=== PATIENT | female | born 1995 | race Caucasian/White ===

== ENCOUNTER 2019-09-02 13:11 | Outpatient (CLI) | payer OTHER, SELFPAY ==
--- NOTE | ~2019-09-02 | US_ITS ---
EXAMINATION: US OB <= 14 weeks fetus DATE: 09/02/2019 14:15 INDICATION: Cramping during first trimester with prior miscarriage TECHNIQUE: Real-time pelvic ultrasound utilizing both a transvaginal and transabdominal probe was pe rformed. The interpreting radiologist was not present for the study. COMPARISON: None. FINDINGS: The uterus measures 9.7 x 6.6 x 5.5 cm. There is an intrauterine gestational sac with mean sac diame ter of 1.7 cm which correlates with an estimated gestational age of 6 weeks and 3 days. A 7 mm yolk s ac is seen. Indeterminate possible pole along the yolk sac with some fifth crown rump length me asuring 5 mm, which correlates with an estimated gestational age of 6 weeks and 2 days. No hear t motion identified on cine grayscale imaging. The right ovary measures 2.9 x 2.3 x 1.7 cm. The left ovary measures 3.6 x 2.3 x 2.8 cm. There is no free fluid in the pelvis. IMPRESSION: 1. 1.7 cm intrauterine gestational sac with mildly enlarged 7 mm yolk sac and indeterminate possible pole with presumptive crown-rump length of 5 mm with no evident heart motion. Findings re main equivocal for early versus failed and would recommend follow-up with serial beta-hCG l evels and/or repeat ultrasound as clinically indicated. 2. Gestational age by ultrasound of 6 weeks 3 day(s) +/- 3 day(s) with ultrasound estimated date of delivery (TITUS) of 04/24/2020. Reviewed, dictated and finalized at location A. IMPRESSION: 1. 1.7 cm intrauterine gestational sac with mildly enlarged 7 mm yolk sac and i ndeterminate possible pole with presumptive crown-rump length of 5 mm wit h no evident heart motion. Findings remain equivocal for early versus nate led and would recommend follow-up with serial beta-hCG levels and/or repeat ultrasound as clinically indicated. 2. Gestational age by ultrasound of 6 weeks 3 day(s) +/- 3 day(s) with ultraso und estimated date of delivery (TITUS) of 04/24/2020.
== END 2019-09-02 13:12 | disposition home or self-care (01) ==
LOC: ANHIMG 13:13
PROVIDERS: Visit Provider Obstetrics & Gynecology Gynecology
DX: O26.21 Pregnancy care for patient with recurrent pregnancy loss, first trimester (principal); Z3A.01 Less than 8 weeks gestation of pregnancy
CPT/HCPCS: 76801

== ENCOUNTER 2019-09-20 10:56 | Outpatient (CLI) | payer OTHER, SELFPAY ==
--- NOTE | ~2019-09-20 | US_ITS ---
EXAMINATION: US OB <=14 wk fetus w TV DATE: 09/20/2019 12:07 INDICATION: Spotting. History of miscarriage. TECHNIQUE: Real-time transabdominal and transvaginal pelvic ultrasound was performed. COMPARISON: Ultrasound 09/02/2019 FINDINGS: TRANSABDOMINAL ULTRASOUND: The uterus measures 8.3 x 5.9 x 7.4 cm. TRANSVAGINAL ULTRASOUND: There is an intrauterine gestational sac with mean diameter of 1.2 cm which correlates with an estimated gestational age of 5 weeks and 6 days. A yolk sac is identified. No feta l pole is identified. The right ovary measures 2.5 x 1.5 x 1.3 cm. The left ovary measures 2.6 x 1.5 x 2.5 cm. There is no free fluid in the pelvis. IMPRESSION: 1. Single intrauterine gestation. The interval decrease in size of the gestational sac and lack of a visible pole are suspicious for failed . Correlate with serial beta-hCGs. Reviewed, dictated and finalized at location A. IMPRESSION: 1. Single intrauterine gestation. The interval decrease in size of the gestati onal sac and lack of a visible pole are suspicious for failed . Correlate with serial beta-hCGs.
== END 2019-09-20 10:57 | disposition home or self-care (01) ==
LOC: ANHIMG 10:58
PROVIDERS: Visit Provider Obstetrics & Gynecology Gynecology
DX: O26.851 Spotting complicating pregnancy, first trimester (principal); O26.21 Pregnancy care for patient with recurrent pregnancy loss, first trimester; Z3A.00 Weeks of gestation of pregnancy not specified
CPT/HCPCS: 76801; 76817

== ENCOUNTER 2019-09-21 16:16 | Outpatient (RCR) | payer OTHER, SELFPAY | END 2019-12-20 23:59 | disposition home or self-care (01) | LOC: ANHLAB 16:16 | PROVIDERS: Visit Provider Obstetrics & Gynecology Gynecology | DX: O02.1 Missed abortion (principal); Z3A.00 Weeks of gestation of pregnancy not specified | CPT/HCPCS: 36415; 84702 ==

== ENCOUNTER 2019-09-22 13:43 | Emergency (ER) | payer OTHER, SELFPAY ==
--- NOTE | ~2019-09-22 | US_ITS ---
US OB <=14 wk fetus w TV 09/22/2019 15:41 Indication: Vaginal bleeding. History of miscarriage. Procedure: High-resolution Limited early obstetrical ultrasound utilizing transabdominal and transvag inal technique. Comparison: 09/20/2019 Findings: There is a gestational sac in the lower uterine segment which appears to have migrated sinc e prior examination. No intrauterine pole or heart motions detected. No yolk sac identifi ed. Ovaries are unremarkable. Right ovary measures 2.6 x 1.5 x 1.7 cm. Left ovary measures 1.7 x 1.5 x 1.4 cm. Impression: 1: Interval migration of complex partially cystic soft tissue into the lower uterine segment since pr ior examination, likely residual gestational sac. No pole or yolk sac identified. This soft tis braulio likely represents retained products of conception. Recommend follow-up with serial quantitative b eta hCG levels and ultrasound as clinically indicated. Reviewed, dictated and finalized at location A. Impression: 1: Interval migration of complex partially cystic soft tissue into the lower ut erine segment since prior examination, likely residual gestational sac. No feta l pole or yolk sac identified. This soft tissue likely represents retained prod ucts of conception. Recommend follow-up with serial quantitative beta hCG level s and ultrasound as clinically indicated.
[2019-09-22 13:53] VITALS: BP 133/70; PULSE 86; RESP 16; TEMP 36.6; O2SAT 100
--- NOTE | 2019-09-22 14:13 | ED.ABDPAIN ---
HPI - Abdominal Pain General Chief Complaint: Vaginal Bleeding Stated Complaint: miscarriage Time Seen by Provider: 09/22/19 13:49 Source: RN notes reviewed History of Present Illness HPI narrative: Patient presents emergency department from home for vaginal bleeding. Patient states she is currently approximately 9 weeks is followed by Dr. Cheng. States that she has been having vaginal bleeding for the past several days that worsened today going through 2 pads in the last 2 hours. Patient states is associated with lower abdominal cramping. States she last had an ultrasound 2 days ago. Patient states she is had no Tylenol or ibuprofen today. Denies any fevers or chills shortness of breath or any other symptoms Related Data Home Medications Medication Instructions Recorded Confirmed PNV cmb#95-ferrous fumarate-FA 1 tablet PO DAILY 01/05/19 01/05/19 [] Allergies Allergy/AdvReac Type Severity Reaction Status Date / Time No Known Allergies Allergy Verified 09/22/19 14:01 Review of Systems Review of Systems: Narrative: Gen.: Denies fevers or chills ENT: Denies congestion Respiratory: Denies shortness of breath or cough CV: Denies chest pain or palpitations GI: Denies abdominal pain nausea, emesis or diarrhea see HPI Musculoskeletal: Denies back pain or muscle pain Neuro: Denies numbness, tingling, weakness or focal weakness Skin: Denies rash Except as documented, all other systems reviewed and negative PMFSH Past Medical History Medical History IUFD at 20 weeks or more of gestation Social History Social History Smoking status: Never smoker Substance use: former Last use: Prior to knowledge of Gender identity (if verbalized by the patient): Female Spiritual care concerns: No Exam Narrative: Exam Narrative: APPEARANCE: No acute distress, nontoxic, resting in bed HEENT: Normocephalic, atraumatic, OMM RESPIRATORY: No respiratory distress, clear to auscultation bilaterally with no rhonchi wheezing or rales CARDIOVASCULAR: RRR s murmur ABDOMINAL: Soft, nondistended, tender palpation right lower quadrant left lower quadrant, no tenderness right upper quadrant left upper quadrant, no rebound or guarding : Normal external exam, small amount of dark red blood with clots in vaginal canal, the cervix is 2 cm MUSCULOSKELETAl: Moves all extremities. No clubbing, cyanosis or edema. NEURO: Awake and alert. Following commands, speech normal, no focal deficits SKIN:: Warm, dry. Normal Color PSYCHIATRIC: Normal affect/mood Course Course Emergency Course: Discussed with Dr. Cheng presentation and work-up discussed ultrasound results. At this time feels patient may be discharged home request patient received Methergine 0.2 mg IM x1 now followed by discharge prescription for 0.2 mg every 6 hours x4 Discussed with patient results of workup and diagnosis. Discussed need for follow-up with primary care, proper use of medication, and reasons to return to the emergency department. Patient understands and agrees to current treatment plan. Discussed with her my conversation with Dr. Cheng in agreement at this time Vital Signs Vital signs: Vital Signs Temperature 97.9 F 09/22/19 13:53 Pulse Rate 86 09/22/19 13:53 Respiratory Rate 16 09/22/19 13:53 Blood Pressure 133/70 09/22/19 13:53 Pulse Oximetry 100 09/22/19 13:53 Temperature 97.9 F 09/22/19 13:53 Pulse Rate 86 09/22/19 13:53 Respiratory Rate 16 09/22/19 13:53 Blood Pressure 133/70 09/22/19 13:53 Pulse Oximetry 100 09/22/19 13:53 MDM - Abdominal Pain Lab Data Result diagrams: 09/22/19 14:17 09/22/19 14:17 Labs: Lab Results 09/22/19 09/22/19 09/22/19 Range/Units 14:17 14:17 14:17 WBC 6.6 (4.5-10.0) K/mm3 RBC 4.54 (4.2-5.4) M/mm3 Hgb
[2019-09-22 14:28] LABS: Basophils Percent Auto 0.3 % (0.2-1.2); Eosinophils Percent Auto 0.6 % (0-4.4); Hematocrit 38.8 % (37.0-47.0); Hemoglobin 13.9 g/dL (12.0-15.0); Immature Granulocyte Absolute 0.01 K/mm3 (0.00-0.031); Immature Granulocyte Percent A 0.2 % (0-0.5); Lymphocytes Absolute Auto 1.31 K/mm3 (0.9-3.2); Lymphocytes Percent Auto 19.7 % (18.3-44.2); Mean Corpuscular HGB Conc 35.8 g/dl (32-36); Mean Corpuscular Hemoglobin 30.6 pg (26-34); Mean Corpuscular Volume 85.5 fl (80-100); Mean Platelet Volume 10.4 fl (7.4-10.4); Monocytes Absolute Auto 0.4 K/mm3 (0.1-0.6); Monocytes Percent Auto 6.5 % (2.6-8.5); Neutrophils Absolute Auto 4.8 K/mm3 (1.3-6.7); Neutrophils Percent Auto 72.7 % (45.5-73.1); Platelet Count Result 179 k/mm3 (150-375); Red Blood Count 4.54 M/mm3 (4.2-5.4); Red Cell Distribution Width 11.6 % (11.5-14.5); White Blood Count 6.6 K/mm3 (4.5-10.0)
[2019-09-22] MEDS: SODIUM CHLORIDE 0.9% IV 1,000 ML 999 ML IV CONT (14:28)
[2019-09-22 14:50] LABS: Anion Gap 14.5 mmol/L (7-16); Blood Urea Nitrogen 10 mg/dL (7-17); Calcium 9.5 mg/dL (8.4-10.2); Carbon Dioxide 25 mmol/L (22-30); Chloride 102 mmol/L (98-107); Estimated CRCL calculation 105 ml/min; Estimated Glomerular Filt Rate > 60; Glucose 139 mg/dL (65-105); Potassium 3.5 mmol/L (3.4-5.0); Sodium 138 mmol/L (137-145)
[2019-09-22] MEDS: METHYLERGONOVINE MALEATE 0.2 MG/ML VIAL IM (17:09)
[2019-09-22 17:21] VITALS: BP 129/64; PULSE 72; RESP 16; O2SAT 100
== END 2019-09-22 17:35 | disposition home or self-care (01) ==
PROVIDERS: Emergency Provider Emergency Medicine
DX: O03.4 Incomplete spontaneous abortion without complication (principal)
CPT/HCPCS: 36415; 76801; 76817; 80048; 84702; 85025; 86850; 86900; 86901; 96361; 96365; 96372; 99284; J0131; J2210; J7030

== ENCOUNTER 2019-10-14 16:21 | Outpatient (RCR) | payer OTHER, SELFPAY ==
[2019-09-29 17:09] LABS: Beta HCG Quantitative 63.88 mIU/ML
[2019-10-06 15:21] LABS: Beta HCG Quantitative 10.76 mIU/ML
[2019-10-14 17:14] LABS: Beta HCG Quantitative 2.55 mIU/ML
== END 2019-12-28 23:59 | disposition home or self-care (01) ==
LOC: ANHLAB 16:21
PROVIDERS: Visit Provider Obstetrics & Gynecology Gynecology
DX: O02.1 Missed abortion (principal); Z3A.00 Weeks of gestation of pregnancy not specified
CPT/HCPCS: 36415; 84702

== ENCOUNTER 2020-02-01 14:00 | Outpatient (CLI) | payer OTHER, SELFPAY ==
--- NOTE | ~2020-02-01 | US_ITS ---
EXAMINATION: US OB <= 14 weeks fetus DATE: 02/01/2020 14:35 INDICATION: Uncertain dates. Spotting. TECHNIQUE: Real-time transabdominal pelvic ultrasound was performed. COMPARISON: None. FINDINGS: The uterus measures 11.6 x 9.6 x 8.3 cm. There is an intrauterine gestational sac. A yolk sac is iden tified. The crown rump length measures 3.3 cm, which correlates with an estimated gestational age of 10 weeks and 1 day(s) (+/-) 6 day(s). heart motion is identified measuring 157 beats per minute (bpm) by M-mode Doppler. The right ovary measures 3.6 x 2.2 x 2.2 cm. The left ovary is not v isualized. There is no free fluid in the pelvis. IMPRESSION: 1. Single living intrauterine gestation with estimated date of delivery of 08/28/2020. Reviewed, dictated and finalized at location B. ETOLOGIST IMPRESSION: 1. Single living intrauterine gestation with estimated date of delivery of 08/28.
== END 2020-02-01 14:01 | disposition home or self-care (01) ==
LOC: ANHIMG 14:03
PROVIDERS: Visit Provider Obstetrics & Gynecology Gynecology
DX: O26.21 Pregnancy care for patient with recurrent pregnancy loss, first trimester (principal); Z3A.00 Weeks of gestation of pregnancy not specified
CPT/HCPCS: 76801

== ENCOUNTER 2020-03-29 09:08 | Outpatient (CLI) | payer OTHER, SELFPAY ==
--- NOTE | ~2020-03-29 | US_ITS ---
US OB /maternal detail DATE: 03/29/2020 10:04 INDICATION: anatomy screen TECHNIQUE: Real-time imaging and Doppler analysis COMPARISON: 02/01/2020 obstetrical ultrasound FINDINGS: Live single intrauterine gestation, fetus in vertex presentation, longitudinal lie. h eart rate of 144 bpm. Posterior placenta. Subjectively normal amount of amniotic fluid. No cerebral ventriculomegaly is evident. The cerebellum appears normal. Normal nuchal fol d and cisterna magna. The spine appears unremarkable. The diaphragm is intact. Fluid is d emonstrated in the stomach and urinary bladder. No hydronephrosis. Three-vessel umbilical cord with normal insertion at abdominal wall. female external genitalia. Biparietal diameter 3.95 cm, consistent with 18 weeks 0 days estimated gestational age Head circumference 14.78 cm; 17 weeks 6 days Abdominal circumference 12.65 cm; 18 weeks 2 days Femur length 2.82 cm; 18 weeks 4 days Composite age by Hadlock formula is 18 weeks 1 day +/- 1 week 2 days; TITUS is 08/29/2020, compared to 08/28/2020 by LMP. Estimated weight by Hadlock formula is 237 +/- 36 g. Head circumference/abdominal circumference 1.17, within normal range of 1.08-1.27 IMPRESSION: Composite age by Hadlock formula is 18 weeks 1 day +/- 1 week 2 days; TITUS is 08/29/2020, co mpared to 08/28/2020 by LMP. Normal anatomy screen Reviewed, dictated and finalized at Location A. Reviewed, dictated and finalized at location A. ENT ART CURATOR IMPRESSION: Composite age by Hadlock formula is 18 weeks 1 day +/- 1 week 2 day s; TITUS is 08/29/2020, compared to 08/28/2020 by LMP. Normal anatomy screen
== END 2020-03-29 09:09 | disposition home or self-care (01) ==
PROVIDERS: Family Provider Pediatrics; Visit Provider Obstetrics & Gynecology Gynecology
DX: Z36.9 Encounter for antenatal screening, unspecified (principal); Z3A.18 18 weeks gestation of pregnancy
CPT/HCPCS: 76805

== ENCOUNTER 2020-07-13 14:44 | Outpatient (CLI) | payer OTHER, SELFPAY ==
--- NOTE | ~2020-07-13 | US_ITS ---
EXAMINATION: US OB follow up DATE: 07/13/2020 15:27 INDICATION: Size less than dates during third trimester TECHNIQUE: Real-time ultrasound of the pelvis was performed. The interpreting radiologist was not pre sent for the study. COMPARISON: 03/29/2020 FINDINGS: There is a single living fetus in vertex presentation. The placenta is posterior. car diac activity and movement are noted. heart rate is 147 beats per minute (bpm). The amnio tic fluid index is 11.7 cm which is normal. The following biometric data were obtained: Biparietal diameter (BPD): 8.3 cm; head circumference (HC): 31.2 cm; abdominal circumference (AC): 29 .2 cm; femur length (FL): 6.5 cm. These measurements are concordant. Estimated weight is 2224 g +/- 333 g, which correlates with the 46th percentile when 08/28/2020 i s used as estimated date of delivery. As single measurements, these parameters are each equal to the following estimated gestational ages w ith ranges of +/- 2 standard deviations: BPD: 33 weeks 3 days +/- 3 weeks 1 days. HC: 35 weeks 0 days +/- 3 weeks 0 days. AC: 33 weeks 2 days +/- 3 weeks 0 days. FL: 33 weeks 5 days +/- 3 weeks 0 days. estimated gestational age based solely on measurements from this exam is 33 weeks 6 days +/- 2 weeks 3 days. IMPRESSION: 1. Single living fetus in vertex presentation. 2. Estimated weight is 2224 g +/- 333 g, which correlates with the 46th percentile when is used as estimated date of delivery. 3. Normal amniotic fluid index. Reviewed, dictated and finalized at location A. IMPRESSION: 1. Single living fetus in vertex presentation. 2. Estimated weight is 2224 g +/- 333 g, which correlates with the 46th p ercentile when 08/28/2020 is used as estimated date of delivery. 3. Normal amniotic fluid index.
== END 2020-07-13 14:45 | disposition home or self-care (01) ==
PROVIDERS: Visit Provider Obstetrics & Gynecology Gynecology
DX: O36.5930 Maternal care for other known or suspected poor fetal growth, third trimester, not applicable or unspecified (principal); Z3A.33 33 weeks gestation of pregnancy
CPT/HCPCS: 76816

== ENCOUNTER 2020-08-07 19:35 | Observation (INO) | payer OTHER, SELFPAY ==
[2020-08-07] VITALS (30 sets, daily range): PULSE 72–104; TEMP 36.7; O2SAT 87–100; BMI 24.6
--- NOTE | ~2020-08-07 | XR_ITS ---
XR chest 2V DATE: 08/07/2020 21:47 INDICATION: Shortness of breath. 36 week patient. TECHNIQUE: AP and lateral views with abdominal and pelvic shielding COMPARISON: None FINDINGS: Normal heart size. No hilar or mediastinal enlargement. No pulmonary infiltrate or consolid ation, pleural effusion or pulmonary vascular congestion or pneumothorax. Included skeletal structure s are normal in appearance. IMPRESSION: No active cardiopulmonary disease Reviewed, dictated and finalized at location A.
--- NOTE | 2020-08-07 20:56 | OBADM ---
This patient, Danita Page, admitted to the OB room Labor/Delivery/Recovery 105 for observation. Patient/family oriented to hospital policies and general routines including ID bracelet, bed and alarms, visiting hours, pain management, procedures, bathroom and other care routines, personal items, smoking policy, room service/diet, and visiting hours. Patient/Family are encouraged to report perceived risks to care and to ask questions if they do not understand what they are told or what they should do.
--- NOTE | 2020-08-07 21:12 | ECG_ITS ---
Measurements Intervals [place] Rate: 105 P: 58 WI: 117 QRS: 69 QRSD: 83 T: -1 QT: 340 QTc: 451 Interpretive Statements SINUS TACHYCARDIA WITH SHORT WI INTERVAL NONSPECIFIC ST & T-WAVE ABNORMALITY- ANT/INF LEADS BASELINE ARTIFACT- I, III, AVL, AVF ABNORMAL ECG Electronically Signed On 08-08-2020 7:50:49 CDT by Osvaldo Dunn D.O.
[2020-08-07 21:14] LABS: Add Urine Microscopic? YES; Amorphous Sediment Urine Few; Appearance Urine Cloudy (Clear); Bacteria Urine 1+ /hpf; Bilirubin Urine Negative (Negative); Blood Urine Negative (Negative); Color Urine Yellow (Yellow); Glucose Urine UA Negative (Negative); Ketones Urine 2+ mg/dL (Negative); Leukocyte Esterase Ur 2+ LEU/UL (Negative); Mucus Urine Rare /lpf; Nitrate Urine Negative (Negative); Protein Urine Negative (Negative); RBC Urine 0-2 /hpf (0-2); Specific Grav Ur 1.012 (1.001-1.035); Squamous Epithelial Cell Urine Few /hpf (Few); Urobilinogen Urine Negative mg/dL (<2.0)
[2020-08-07] MEDS: hydrOXYzine pamoate 25 MG CAPSULE PO (23:14)
--- NOTE | 2020-08-10 09:01 | P.PNOB_ITS ---
OB - Triage/Final Diagnosis Visit Information Reason for evaluation: threatened labor and other (SOB) Comments/Additional reasons for admission: I have assessed the risk for this patient, Danita Page, and determined that she would benefit from observation care. Evaluation Laboratory results: Laboratory Tests 08/07/20 21:01 Urine Color Yellow Urine Appearance Cloudy H Urine pH 7.0 Ur Specific [place] 1.012 Urine Protein Negative Urine Glucose (UA) Negative Urine Ketones 2+ H Ur Blood (Man) Negative Urine Nitrate Negative Urine Bilirubin Negative Urine Urobilinogen Negative Leukocyte Esterase Rfl 2+ H Urine RBC 0-2 Urine WBC 4-6 H Ur Squamous Epith Cells Few Amorphous Sediment Few H Urine Bacteria 1+ H Urine Mucus Rare
== END 2020-08-08 00:10 | disposition home or self-care (01) ==
PROVIDERS: Admitting Provider Obstetrics & Gynecology Gynecology; Visit Provider Obstetrics & Gynecology Gynecology
DX: O47.1 False labor at or after 37 completed weeks of gestation (principal); O26.893 Other specified pregnancy related conditions, third trimester; R06.02 Shortness of breath; Z3A.37 37 weeks gestation of pregnancy
CPT/HCPCS: 71046; 81001; 93005; A9270; G0378; G0379

== ENCOUNTER 2020-08-11 19:34 | Observation (INO) | payer OTHER, SELFPAY ==
[2020-08-11 20:16] LABS: Add Urine Microscopic? YES; Appearance Urine Cloudy (Clear); Bacteria Urine 1+ /hpf; Bilirubin Urine Negative (Negative); Blood Urine Negative (Negative); Color Urine Yellow (Yellow); Glucose Urine UA Negative (Negative); Ketones Urine 1+ mg/dL (Negative); Leukocyte Esterase Ur 1+ LEU/UL (Negative); Mucus Urine Few /lpf; Nitrate Urine Negative (Negative); Protein Urine 1+ mg/dL (Negative); RBC Urine 0-2 /hpf (0-2); Squamous Epithelial Cell Urine Many /hpf (Few)
[2020-08-11 21:18] VITALS: BMI 25.3
--- NOTE | 2020-08-11 21:18 | LDADM ---
This patient, Danita Page, was admitted to Labor/Delivery/Recovery 106 on 08/11/20 at 19:34. Plans for labor, pain management and were discussed with patient. Patient/family oriented to hospital policies and general routines including ID bracelet, bed and alarms, visiting hours, pain management, procedures, bathroom and other care routines, personal items, smoking policy, room service/diet and guest tray routines, security routines, and visiting hours. Patient/Family are encouraged to report perceived risks to care and to ask questions if they do not understand what they are told or what they should do. See OBIX for further documentation.
--- NOTE | 2020-08-16 07:43 | P.PNOB_ITS ---
OB - Triage/Final Diagnosis Visit Information Reason for evaluation: threatened labor Comments/Additional reasons for admission: I have assessed the risk for this patient, Danita Page, and determined that she would benefit from observation care. Evaluation Laboratory results: Laboratory Tests 08/11/20 20:05 Urine Color Yellow Urine Appearance Cloudy H Urine pH 6.0 Ur Specific [place] 1.020 Urine Protein 1+ H Urine Glucose (UA) Negative Urine Ketones 1+ H Ur Blood (Man) Negative Urine Nitrate Negative Urine Bilirubin Negative Urine Urobilinogen 2.0 H Leukocyte Esterase Rfl 1+ H Urine RBC 0-2 Urine WBC 7-9 H Ur Squamous Epith Cells Many H Urine Bacteria 1+ H Hyaline Casts 1-2 Urine Mucus Few H
== END 2020-08-11 21:28 | disposition home or self-care (01) ==
PROVIDERS: Admitting Provider Obstetrics & Gynecology Gynecology; Visit Provider Obstetrics & Gynecology Gynecology
DX: O47.9 False labor, unspecified (principal); Z3A.00 Weeks of gestation of pregnancy not specified
CPT/HCPCS: 81001; 84112; 87086; G0378; G0379

== ENCOUNTER 2020-08-21 05:04 | Inpatient (IN) | payer OTHER, SELFPAY ==
[2020-08-21] VITALS (78 sets, daily range): BP systolic 80–123; BP diastolic 38–90; PULSE 64–125; RESP 18; TEMP 36.2–37.1; O2SAT 91–100; BMI 26.7
--- NOTE | 2020-08-21 05:33 | LDADM ---
This patient, Danita Page, was admitted to Labor/Delivery/Recovery 104 on 08/21/20 at 05:04. Plans for labor, pain management and were discussed with patient. Patient/family oriented to hospital policies and general routines including ID bracelet, bed and alarms, visiting hours, pain management, procedures, bathroom and other care routines, personal items, smoking policy, room service/diet and guest tray routines, security routines, and visiting hours. Patient/Family are encouraged to report perceived risks to care and to ask questions if they do not understand what they are told or what they should do. See OBIX for further documentation.
[2020-08-21] MEDS: OXYTOCIN 30 UNITS/NS 500 ML 30 UNITS/500 ML BAG IV CONT (05:36)
[2020-08-21] MEDS: LACTATED RINGERS 1,000 ML 125 ML IV CONT ×2 (05:36→11:30)
[2020-08-21 05:52] LABS: Basophils Percent Auto 0.3 % (0.2-1.2); Eosinophils Absolute Auto 0.1 K/mm3 (0-0.3); Eosinophils Percent Auto 0.8 % (0-4.4); Hematocrit 30.4 % (37.0-47.0); Hemoglobin 9.9 g/dL (12.0-15.0); Immature Granulocyte Absolute 0.04 K/mm3 (0.00-0.031); Immature Granulocyte Percent A 0.5 % (0-0.5); Lymphocytes Percent Auto 30.9 % (18.3-44.2); Mean Corpuscular HGB Conc 32.6 g/dl (32-36); Mean Corpuscular Hemoglobin 27.6 pg (26-34); Mean Corpuscular Volume 84.7 fl (80-100); Mean Platelet Volume 10.3 fl (7.4-10.4); Monocytes Absolute Auto 0.7 K/mm3 (0.1-0.6); Monocytes Percent Auto 8.5 % (2.6-8.5); Neutrophils Absolute Auto 4.6 K/mm3 (1.3-6.7); Platelet Count Result 241 k/mm3 (150-375); Red Blood Count 3.59 M/mm3 (4.2-5.4); White Blood Count 7.8 K/mm3 (4.5-10.0)
--- NOTE | 2020-08-21 06:31 | P.PNAN_ITS ---
Anes - Eval Pre Procedure Procedure: Labor epidural Date/Time: 08/21/20 06:31 Surgeon: Prosper Preop Diagnosis: pain during labor Pre Op Diagnosis: IOL Patient Data Age: 24 Gender: F Height: 1.65 m Weight: 73 kg Last Vital Signs Temp 37.1 C 08/21/20 05:40 Pulse 101 H 08/21/20 06:30 BP 116/66 08/21/20 06:30 Allergies Allergy/AdvReac Type Severity Reaction Status Date / Time No Known Allergies Allergy Verified 07/30/20 15:26 Home Medications Medication Instructions Recorded Confirmed Type PNV cmb#95-ferrous fumarate-FA 1 tablet PO DAILY 07/30/20 08/07/20 History [] ergocalciferol (vitamin D2) 1,250 mcg PO WEEKLY 07/30/20 08/07/20 History [Vitamin D2] valacyclovir [Valtrex] 500 mg PO DAILY 07/30/20 08/07/20 History Laboratory Tests 08/21/20 08/21/20 05:37 05:37 WBC 7.8 K/mm3 K/mm3 (4.5-10.0) RBC 3.59 M/mm3 L M/mm3 (4.2-5.4) Hgb 9.9 g/dL L g/dL (12.0-15.0) Hct 30.4 % L % (37.0-47.0) MCV 84.7 fl fl (80-100) MCH 27.6 pg pg (26-34) MCHC 32.6 g/dl g/dl (32-36) RDW 14.0 % % (11.5-14.5) Plt Count 241 k/mm3 k/mm3 (150-375) MPV 10.3 fl fl (7.4-10.4) Immature Gran % (Auto) 0.5 % % (0-0.5) Neut % (Auto) 59.0 % % (45.5-73.1) Lymph % (Auto) 30.9 % % (18.3-44.2) [place] % (Auto) 8.5 % % (2.6-8.5) Eos % (Auto) 0.8 % % (0-4.4) Baso % (Auto) 0.3 % % (0.2-1.2) Lymph # (Auto) 2.40 K/mm3 K/mm3 (0.9-3.2) [place] # (Auto) 0.7 K/mm3 H K/mm3 (0.1-0.6) Eos # (Auto) 0.1 K/mm3 K/mm3 (0-0.3) Baso # (Auto) 0.0 K/mm3 K/mm3 (0.0-0.1) Abs Immat Gran (auto) 0.04 K/mm3 H K/mm3 (0.00-0.031) Absolute Neuts (auto) 4.6 K/mm3 K/mm3 (1.3-6.7) Absolute Nucleated RBC 0.0 K/mm3 K/mm3 (0.0-0.012) Nucleated RBC % 0.0 % % (0.0-0.2) RPR Pending Patient hx anesthesia problems: none Family hx anesthesia problems: none [facility] Family History Family History (Updated 07/30/20 @ 15:28 by Rachel Arriaza RN) Other No pertinent family history Social History Social History Smoking status: Never smoker Second hand tobacco smoke exposure: Yes Substance use: former Gender identity (if verbalized by the patient): Female Spiritual care concerns: No Exam Day of Procedure 08/21/20 06:31
--- NOTE | 2020-08-21 07:51 | WPDOBADMIT ---
Obstetrics - Admit Note Admission Note: record reviewed. No pertinent additions to the history and/or any subsequent changes in the physical findings that are not consistent with the expected course of the were found. Additions to the history and/or subsequent changes in the physical findings follow. Here for MIL. Cervix 1-2/50/+1 AROM attempted. FHTs reactive
[2020-08-21 08:26] LABS: Rapid Plasma Reagin Non-Reactive (NonReactive)
[2020-08-21] MEDS: fentaNYL CITRATE INJ (*CRX) 100 MCG/2 ML VIAL 50 MCG IV PUSH ×2 (10:30→11:31)
--- NOTE | 2020-08-21 15:24 | PM.OBPRVD ---
OB - Delivery Note Procedure Delivery date: 08/21/20 Procedure: events: Labor Induction Intrapartal events: None Induction method: AROM and per pitocin protocol Delivery monitor: external FHT and external uterine Route of delivery: Laceration Description: None Specimen: No Quantitative Blood Loss (ml): 97 Anesthesia type: Epidural Disposition: floor Baby Date of : 08/21/20 Weeks of gestation at delivery: 39 gender: Female presentation: vertex position: Left Occiput Anterior Placenta delivery description: Spontaneous cord vessel description: 3 Vessels score one minute: 9 score five minutes: 9
--- NOTE | 2020-08-21 15:25 | PM.OBDSVD ---
DS: Admitting Diagnosis Admitting Diagnosis Admitting Diagnosis: MIL at 39 wks DS: Discharge Diagnosis Discharge Diagnosis (1) (normal spontaneous vaginal delivery): Code(s): O80 - Encounter for full-term uncomplicated delivery Status: Acute OB - DS: Summary OB Procedures : NST and Ultrasound OB Procedures Intrapartum: Spontaneous Vag Delivery OB Procedures: : None Peripartum Data Delivery Method: Natural Vaginal Laceration Description: None complications: none Status at Discharge Functional status at discharge: independent ambulation Overall status at discharge: patient is progressing back to baseline Time Spent with Patient Time attestation: Total time spent providing and/or coordinating discharge services: DS: Data Data Completed and Pending Labs on day of discharge: Labs from last 24 hours 08/21/20 08/21/20 08/21/20 05:37 05:37 05:37 WBC 7.8 RBC 3.59 L Hgb 9.9 L Hct 30.4 L MCV 84.7 MCH 27.6 MCHC 32.6 RDW 14.0 Plt Count 241 MPV 10.3 Immature Gran % (Auto) 0.5 Neut % (Auto) 59.0 Lymph % (Auto) 30.9 [place] % (Auto) 8.5 Eos % (Auto) 0.8 Baso % (Auto) 0.3 Lymph # (Auto) 2.40 [place] # (Auto) 0.7 H Eos # (Auto) 0.1 Baso # (Auto) 0.0 Abs Immat Gran (auto) 0.04 H Absolute Neuts (auto) 4.6 Absolute Nucleated RBC 0.0 Nucleated RBC % 0.0 RPR Non-reactive Blood Type B Positive Antibody Screen Negative Discharge Plan Discharge Attending physician on discharge: Perri Cheng Discharging Clinician: Perri Cheng Anticipated Discharge Date/Time: 08/23/20 15:25 Patient Disposition: Home, Self-Care Activity: may shower and pelvic rest Diet: regular Discharge Instructions: Education: Mom and Baby Guide Given to: Mother Follow-Up: Call your delivering provider's office for an appointment to be seen in: 6 weeks Mom and baby should come to the [facility] for the follow-up appointment. Appointment Date/Time: August 24, 2020 at 9:00 am What to expect at your follow-up visit: Physical Assessment Call [phone] if you are unable to keep your appointment time. BREAST CARE: * Wear a snug supportive bra. * For engorgement discomfort: Breast Feeding: * Apply warm moist washcloths * Express milk as needed to relieve engorgement * Wear loose clothing * For sore nipples: * Identify correct latch-on * Apply warm moist washcloths before and after nursing * Air dry nipples after nursing * May apply Lansinoh cream to nipples PERINEAL CARE: * Until bleeding stops, use your jessica bottle after urinating * Change your pad frequently throughout the day * You may take sitz baths several times a day (fill your bathtub with warm water and soak for 20 minutes.) Do NOT bathe in the water * No tub baths until seen by your physician - You may shower ACTIVITY: * Rest as much as possible. * Do not exercise or lift anything heavier than your baby (such as laundry or other children.) * Avoid stairs or driving as much as possible. * Do not put anything into the vagina. No douching, tampons, or sexual activity until seen by physician. NOTIFY PHYSICIAN IF YOU HAVE ANY QUESTIONS OR IF ANY OF THE FOLLOWING SYMPTOMS OCCUR: * If your vaginal bleeding becomes foul smelling. * If your vaginal bleeding becomes more heavy than a period or if your bleeding changes from pink to bright red. However, you may pass an occasional walnut-sized clot once or twice for the first week . * If you experience a sharp, shooting pain in you calves. * If you discover a hard, reddened area on your breast or if you experience flu-like symptoms. DIET: * Eat regular, well-balanced meals. * Drink plenty of fluids daily. If , drink to thirst. Stand Alone Forms: Gen
[2020-08-21] MEDS: OXYTOCIN 30 UNITS/NS 500 ML 30 UNITS/500 ML BAG 125 UNITS IV CONT (15:53)
[2020-08-21 16:36] LABS: Amphetamine Screen Urine Negative (Negative); Barbiturate Screen Urine Negative (Negative); Benzodiazepines Screen Urine Negative (Negative); Cannabinoid Screen Urine Positive (Negative); Cocaine Screen Urine Negative (Negative); Methadone Screen Urine Negative (Negative); Opiate Screen Urine Negative (Negative); Phencyclidine Screen Urine Negative (Negative)
[2020-08-21] MEDS: WITCH HAZEL 40 PADS 1 PAD TOPICAL (17:48)
[2020-08-21] MEDS: BENZOCAINE 20% AER SPR (*SP) 56 GM CAN 1 SPRAY TOPICAL (17:48)
[2020-08-21] MEDS: LORATADINE 10 MG TABLET PO (18:13)
--- NOTE | 2020-08-21 19:07 | OBPPTRN ---
Patient transferred to post room #280 via wheelchair. Support person present. Oriented to unit, room, information board, rooming in, admission packet and security measures. Patient verbalizes understanding.
[2020-08-21] MEDS: IBUPROFEN 600 MG TABLET PO (20:28)
[2020-08-21] MEDS: ACETAMINOPHEN 325 MG TABLET 650 MG PO (20:29)
[2020-08-22] VITALS: BP 110/68; PULSE 75; RESP 18; TEMP 37
[2020-08-22] MEDS: IBUPROFEN 600 MG TABLET PO ×3 (03:28→16:27)
[2020-08-22] MEDS: ACETAMINOPHEN 325 MG TABLET 650 MG PO ×2 (03:29→10:01)
[2020-08-22 03:58] VITALS: BP 102/65; PULSE 73; RESP 18; TEMP 36.9
[2020-08-22 04:07] LABS: Hematocrit 30.1 % (37.0-47.0); Hemoglobin 9.6 g/dL (12.0-15.0)
--- NOTE | 2020-08-22 07:43 | WPDANLDPN2 ---
Anes-Prog Note L&D Date/Time: 08/22/20 07:43 Comfortable throughout: labor and delivery Neuraxial method: epidural Epidural/Spinal procedure site: clean & non-tender Neuro status: Neuro function grossly intact. Cardiovascular status: normal Respiratory status: normal Airway patency: baseline Mental status: baseline Post-Op hydration status: normal Vital Signs: Last Vital Signs Temp 98.4 F 08/22/20 03:58 Pulse 73 08/22/20 03:58 Resp 18 08/22/20 03:58 BP 102/65 08/22/20 03:58 Pulse Ox 100 08/21/20 19:07 Pain score (VAS): 0 I/O: Intake & Output 08/21/20 08/21/20 08/22/20 15:59 23:59 07:59 Intake Total 1000 700 Output Total 163 Balance 1000 537 Post-procedural complaints: none Patient feedback: Patient satisfied with anesthetic care.
--- NOTE | 2020-08-22 07:47 | PM.OBPNVD ---
OB - PN: Subj Subjective Date/time seen: 08/22/20 07:47 doing well no complaints bleeding minimal OB - PN: Obj Data Labs CBC & Chem 7: 08/22/20 03:08 Labs: Laboratory Results - last 24 hr 08/21/20 08/21/20 08/22/20 05:37 15:59 03:08 Hgb 9.6 L Hct 30.1 L Urine Opiates Screen Negative Urine Methadone Screen Negative Ur Barbiturates Screen Negative Ur Phencyclidine Scrn Negative Ur Amphetamine Screen Negative U Benzodiazepines Scrn Negative Urine Cocaine Screen Negative U Cannabinoids Screen Positive A RPR Non-reactive OB - PN A/P Assessment and Plan (1) (normal spontaneous vaginal delivery): Code(s): O80 - Encounter for full-term uncomplicated delivery Status: Acute Assessment and Plan: continue with pp care. Time Spent With Patient Time: Total time spent is greater than 50% in coordination of care (as documented) at patient's floor/unit and/or counseling patient: Exam Narrative: Exam Narrative: ff below umbilicus
[2020-08-22 08:00] VITALS: BP 104/71; PULSE 64; RESP 18; TEMP 36.8; O2SAT 100
--- NOTE | 2020-08-22 08:10 | PC.NURSE ---
Consult with pt., mother reports infant is eagerly feeding with slight tenderness. Requested mother call out next feeding for observation.
[2020-08-22] MEDS: DOCUSATE SODIUM 100 MG CAPSULE PO ×2 (10:01→16:27)
[2020-08-22] MEDS: MULTIVIT/MIN/PREN/FOL AC/IRON TABLET 1 TAB PO (10:01)
[2020-08-22] MEDS: POLYSACCHARIDE IRON COMPLEX 150 MG CAPSULE PO (10:01)
[2020-08-22 12:15] VITALS: BP 107/70; PULSE 76; RESP 16; TEMP 36.6; O2SAT 98
--- NOTE | 2020-08-22 12:30 | PC.NURSE ---
Mother called out for assist with feeding. Mother reports infant is sleepy and has difficulties waking to feed and maintaining latch. Reviewed infant feeding cues, frequencies, duration of feedings, feeding elimination flow sheet, and signs of adequate intake. Demonstrated stimulation techniques to wake infant for feeding. Assisted with to breast. Reviewed positioning/alignment in cross cradle, holding breast in ?U? hold and guided asymmetrical latch on. Infant able to latch. nursed eagerly, with steady draws and clicking noted. Infant's tongue was down and curled on sides, latch was shallow. Several attempts made was unable to latch deeply. Mother reports infant has latched this same way since . She denies tenderness with attempts or feeding. Offered and explained the nipple shield. Mother reports she used shield with first child. Discussed nipple shield precautions and possible complications. Reviewed application and cleaning of shield. Patient able to return demonstration on proper application of shield. Discussed the need to initiate pumping if continues to nurse with the shield. Patient verbalizes understanding. Infant was able to latch deeply using nipple shield. nursed eagerly with steady draws and no clicking noted. Reviewed signs of a correct latch, effective nursing and suck swallow ratio. was able to maintain latch without discomfort to mother. Demonstrated how to adjust latch more deeply while feeding if infant slips to shallow latch. Nipple care reviewed of lanolin after feedings, warm compresses as needed. Suggested mother stimulate while feeding to increase stimulate, increase intake and to assist with maintaining deep latch. Advised mother should initiate pumping if she used the shield for more than 3 feedings. Mother states she has a double electric pump for home use. Mother states she wishes to be discharged at 24 hours, suggested mother stay for assist with . Mother is feeding as required and waking infant to feed if needed. Infant is currently meeting outcomes for weight, output, jaundice and feeding frequencies. Mother states she feels confident to continue current at home. Reviewed transition to breast milk, signs of adequate intake, and engorgement/relief. Instructed to call ICP if intake/output less than required. Reviewed regular medications mother is taking. Information provided per Cindy. Reviewed community resources on the [facility] website and in the Mom/Baby guide. Information on outpatient services provided. Mother has no further questions at this time.
--- NOTE | 2020-08-22 15:54 | PCCCNOTE ---
Addendum entered by SAMMI Corcoran 08/23/20 09:42: Received notification from [facility] that a report will not be generated and they will not be offering in home services to pt. Original Note: Care Coordination Consult: Met with pt. today due to marijuana use during . Pt. lives at home with FOB Brando and their four year old child. Pt. has all necessary supplies for baby including a crib, carseat, clothing, diapers, and bottles. Pt. is working with the nurse to assist with . Pt. has supportive family. Reports she did use marijuana recreationally to assist her with dietary and nausea during . Pt. reports she and Brando experienced a miscarriage last year and was in contact with the OBGYN regarding her marijuana use. Pt. does not plan to use marijuana at discharge. Pt. is aware baby girl's meconium was tested and currently pending. resources provided. Did submit online DCFS referral #[id number] due to marijuana use during , awaiting determination. Pt. is hopeful to discharge today. Denies any further needs.
[2020-08-22 19:30] VITALS: BP 122/65; PULSE 70; RESP 18; TEMP 36.3; O2SAT 100
[2020-08-24 09:41] VITALS: BP 109/65; PULSE 65; RESP 20; TEMP 36.7; O2SAT 100
== END 2020-08-22 20:07 | disposition home or self-care (01) | DRG 560 ==
LOC: ANHLDR 08-23 14:22 → ANHOB2 08-23 14:22
PROVIDERS: Admitting Provider Obstetrics & Gynecology Gynecology; Visit Provider Obstetrics & Gynecology
DX: O76 Abnormality in fetal heart rate and rhythm complicating labor and delivery (principal); Z3A.39 39 weeks gestation of pregnancy; Z37.0 Single live birth
CPT/HCPCS: 36415; 80307; 85014; 85018; 85025; 86592; 86850; 86900; 86901; A9270; J2590; J2795; J3010; J7120

== ENCOUNTER 2022-02-01 12:20 | Emergency (ER) | payer OTHER, SELFPAY ==
[2022-02-01 13:33] VITALS: BP 123/62; PULSE 79; RESP 20; TEMP 37.3; O2SAT 100
--- NOTE | 2022-02-01 15:08 | ED.NAVMDI ---
HPI - Nausea/Vomiting/Diarrhea General Chief complaint: Upper Respiratory Infection Stated complaint: Vomiting/Diarrhea Time Seen by Provider: 02/01/22 15:09 Source: patient, RN notes reviewed and old records reviewed Mode of arrival: ambulatory Limitations: no limitations History of Present Illness HPI Narrative: 26 year old female who presents to [facility] care with complaints of vomiting and diarrhea bilateral ears feel muffled, cough and body aches, sore throat,cough with green phlegm for the past 2 weeks with symptoms increasing in past week. Patient reports that she had a 100F temp yesterday. Patient reports that she has been taking Ibuprofen and Tylenol for her symptoms.Patient reports that she has had flu vaccine but has not had Covid vaccinations but had Covid in October of 2021. MD elicited complaint: nausea, vomiting and diarrhea Onset (ago): week(s) (2 with increased symptoms for past week) Description of vomiting: food contents and watery Description of diarrhea: watery Associated nausea: Yes Associated abdominal pain: No Pain scale (0-10): 9 Treatment prior to arrival: other (Tylenol and Ibuprofen) Related Data Allergies Allergy/AdvReac Type Severity Reaction Status Date / Time No Known Allergies Allergy Verified 02/01/22 15:47 Review of Systems Review of Systems: CONSTITUTIONAL: Reports malaise, chills, sweats, or fever. EYES: Denies visual changes, redness, or discharge. ENT: Reports rhinorrhea, congestion, sinus pain, bilateral ears otalgia and sore throat. CARDIOVASCULAR: Denies chest pain, palpitations, or edema. RESPIRATORY: Reports cough.? Denies dyspnea. GASTROINTESTINAL: Denies abdominal pain,positive for nausea, vomiting, diarrhea SKIN: Denies rash or itching. MUSCULOSKELETAL: Reports myalgia. NEUROLOGIC: Denies headache. All systems reviewed & are unremarkable except as noted in HPI and below PMFSH Past Medical History Medical History IUFD at 20 weeks or more of gestation Family History Family History Other No pertinent family history Social History Social History (Updated 02/08/22 @ 11:15 by Kim Carrillo NP) Smoking status: Current every day smoker Tobacco type: e-cigarettes/vaping Second hand tobacco smoke exposure: Yes Substance use: former Last use: Prior to knowledge of Gender identity (if verbalized by the patient): Female Spiritual care concerns: No Comments At time of signature, agree with nursing past medical, surgical, social and family history. There is no relevant family history pertinent to the presenting complaint Exam Narrative: GENERAL: Well-appearing, well-nourished, and in no acute distress. HEAD: Normocephalic EYES: PERRLA, conjunctivae clear ENT: Nares clear, turbinates edematous and erythematous, clear discharge. Mucous membranes moist. Left TM red and bulging, right TM pearly landa with dull light reflex; no tragal tenderness. Oropharynx erythematous without lesions. Tonsils not enlarged and without exudate, no drooling, no hoarseness, no trismus, uvula midline.post nasal drainge NECK: Supple. No lymphadenopathy CHEST: Clear to auscultation, breath sounds equal. No wheezing, rhonchi, rales, or stridor. No respiratory distress, speaks in full sentences.Productive cough,SAO2 100% on room air HEART: Regular rate and rhythm. No murmur heard. SKIN: Warm, dry, no rash. NEURO: Alert and oriented x3. PSYCH: Normal mood and affect Course Course Emergency Course: Patient is aware of diagnosis, understands and agrees to treatment plan.? Anticipatory guidance given.? Patient agrees to follow-up as directed and is aware of reasons to seek care at the emergency department. Portions of this record may have been created with voice recognition software Level of Care: Express Care Visit Vital Signs Vital signs
== END 2022-02-01 15:27 | disposition home or self-care (01) ==
PROVIDERS: Emergency Provider Registered Nurse
DX: B34.9 Viral infection, unspecified (principal); H66.92 Otitis media, unspecified, left ear; Z86.16 Personal history of COVID-19; F17.290 Nicotine dependence, other tobacco product, uncomplicated
CPT/HCPCS: 87804; 99213; G0463

== ENCOUNTER 2022-05-13 12:56 | Outpatient (CLI) | payer OTHER, SELFPAY ==
--- NOTE | ~2022-05-13 | US_ITS ---
Pelvic ultrasound. Clinical History: First trimester , history of spontaneous Technique: Realtime transabdominal and transvaginal scanning of the pelvis was performed. Color flow Doppler and Doppler spectral analysis were performed. Findings: The uterus is anteverted, and contains an intrauterine gestation. pole and yolk sac a re present. [place]-rump length of 8 mm corresponds to an estimated gestational age of 6 weeks 5 days. heart rate is 131 bpm. The right ovary measures 2.8 x 1.7 x 1.9 cm. No significant right ovarian or adnexal mass is seen. The left ovary measures 3.9 x 2.9 x 2.5 cm. No significant left ovarian or adnexal mass is seen. Vascular flow present in both ovaries on Doppler spectral analysis. There is no evidence of free fluid in the cul de sac. Impression: Live intrauterine gestation with estimated gestational age of 6 weeks 5 days. heart rate is 131 bpm. Reviewed, dictated and finalized at [facility]. Impression: Live intrauterine gestation with estimated gestational age of 6 weeks 5 days. F etal heart rate is 131 bpm.
== END 2022-05-13 12:57 | disposition home or self-care (01) ==
PROVIDERS: Visit Provider Obstetrics & Gynecology Gynecology
DX: O26.21 Pregnancy care for patient with recurrent pregnancy loss, first trimester (principal); Z3A.01 Less than 8 weeks gestation of pregnancy
CPT/HCPCS: 76801; 76817

== ENCOUNTER 2022-08-01 10:00 | Observation (INO) | payer OTHER, SELFPAY ==
--- NOTE | ~2022-08-01 | US_ITS ---
EXAMINATION: US OB limited DATE: 08/01/2022 11:47 INDICATION: well-being. History of loss. TECHNIQUE: Real-time ultrasound of the pelvis was performed. COMPARISON: Ultrasound 05/13/2022 FINDINGS: There is a single fetus in breech presentation. The placenta is anterior. heart rate is 132 be ats per minute (bpm). The amniotic fluid volume is subjectively normal. The deepest vertical pocket i s 3.7 cm. IMPRESSION: 1. Single living fetus in breech presentation. Reviewed, dictated and finalized at location A.
[2022-08-01 10:21] VITALS: BP 105/63; PULSE 71
--- NOTE | 2022-08-01 10:25 | OBADM ---
This patient, Danita Page, admitted to the OB room OB Post 116 for observation. Patient/family oriented to hospital policies and general routines including ID bracelet, bed and alarms, visiting hours, pain management, procedures, bathroom and other care routines, personal items, smoking policy, room service/diet, and visiting hours. Patient/Family are encouraged to report perceived risks to care and to ask questions if they do not understand what they are told or what they should do.
[2022-08-01 10:30] VITALS: BP 108/54; PULSE 66
[2022-08-01 10:59] LABS: Appearance Urine Clear (Clear); Bilirubin Urine Negative (Negative); Blood Urine Negative (Negative); Color Urine Yellow (Yellow); Glucose Urine UA Negative (Negative); Ketones Urine Negative (Negative); Leukocyte Esterase Ur Negative LEU/UL (NEGATIVE); Nitrate Urine Negative (Negative); Protein Urine Negative (Negative); Specific Grav Ur 1.023 (1.001-1.035)
[2022-08-01 11:12] LABS: Add Urine Microscopic? NO
--- NOTE | 2022-08-01 11:20 | PC.NURSE ---
1025--T's 135-147. Pt reassured.
--- NOTE | 2022-08-01 12:04 | PC.NURSE ---
1126--to US per wheelchair.
--- NOTE | 2022-08-08 12:44 | PM.OBTRLD ---
OB - Triage/Final Diagnosis Visit Information Reason for evaluation: threatened labor Comments/Additional reasons for admission: I have assessed the risk for this patient, Danita Page, and determined that she would benefit from observation care. Evaluation Laboratory results: Laboratory Tests 08/01/22 10:45 Urine Color Yellow Urine Appearance Clear Urine pH 6.0 Ur Specific [place] 1.023 Urine Protein Negative Urine Glucose (UA) Negative Urine Ketones Negative Ur Blood (Man) Negative Urine Nitrate Negative Urine Bilirubin Negative Urine Urobilinogen 1.0 Ur Leukocyte Esterase Negative
== END 2022-08-01 12:20 | disposition home or self-care (01) ==
PROVIDERS: Admitting Provider Obstetrics & Gynecology Gynecology; Visit Provider Obstetrics & Gynecology Gynecology
DX: O47.02 False labor before 37 completed weeks of gestation, second trimester (principal); Z3A.18 18 weeks gestation of pregnancy
CPT/HCPCS: 76815; 81003; 84112; G0378; G0379

== ENCOUNTER 2022-09-14 11:05 | Observation (INO) | payer OTHER, SELFPAY ==
--- NOTE | 2022-09-14 11:05 | OBADM ---
This patient, Danita Page, admitted to the OB room OB Post 116 for observation. pt here complains of cramping and back pain for few days, has headache long time and taking tylenol and magnesium. Patient/family oriented to hospital policies and general routines including ID bracelet, bed and alarms, visiting hours, pain management, procedures, bathroom and other care routines, personal items, smoking policy, room service/diet, and visiting hours. Patient/Family are encouraged to report perceived risks to care and to ask questions if they do not understand what they are told or what they should do.
[2022-09-14 11:39] VITALS: BP 108/55; PULSE 83
[2022-09-14 11:47] LABS: Appearance Urine Cloudy (Clear); Bacteria Urine 2+ /hpf; Bilirubin Urine Negative (Negative); Blood Urine Negative (Negative); Color Urine Yellow (Yellow); Glucose Urine UA Negative (Negative); Ketones Urine 2+ mg/dL (Negative); Leukocyte Esterase Ur 1+ LEU/UL (NEGATIVE); Nitrate Urine Negative (Negative); Protein Urine Trace mg/dL (Negative); RBC Urine 0-2 /hpf (0-2); Specific Grav Ur 1.024 (1.001-1.035); Squamous Epithelial Cell Urine Many /hpf (Few); WBC Urine 21-50 /hpf (0-3)
[2022-09-14 11:52] LABS: Add Urine Microscopic? YES
--- NOTE | 2022-09-16 09:21 | PM.OBTRLD ---
OB - Triage/Final Diagnosis Visit Information Date of evaluation: 09/14/22 Reason for evaluation: threatened labor Comments/Additional reasons for admission: I have assessed the risk for this patient, Danita Page, and determined that she would benefit from observation care. Evaluation Laboratory results: Laboratory Tests 09/14/22 11:35 Urine Color Yellow Urine Appearance Cloudy H Urine pH 7.0 Ur Specific [place] 1.024 Urine Protein Trace Urine Glucose (UA) Negative Urine Ketones 2+ H Ur Blood (Man) Negative Urine Nitrate Negative Urine Bilirubin Negative Urine Urobilinogen 1.0 Ur Leukocyte Esterase 1+ H Urine RBC 0-2 Urine WBC 21-50 Ur Squamous Epith Cells Many H Urine Bacteria 2+ H Urine Casts 3-5
== END 2022-09-14 13:25 | disposition home or self-care (01) ==
PROVIDERS: Admitting Provider Student in an Organized Health Care Education/Training Program; Visit Provider Student in an Organized Health Care Education/Training Program
DX: O47.02 False labor before 37 completed weeks of gestation, second trimester (principal); O26.892 Other specified pregnancy related conditions, second trimester; R10.9 Unspecified abdominal pain; Z3A.24 24 weeks gestation of pregnancy
CPT/HCPCS: 81001; 87086; 87088; G0378; G0379

== ENCOUNTER 2022-10-29 12:33 | Observation (INO) | payer OTHER, SELFPAY ==
[2022-10-29 14:01] VITALS: BP 107/53; PULSE 77
[2022-10-29 14:04] LABS: Appearance Urine Cloudy (Clear); Bacteria Urine 4+ /hpf; Bilirubin Urine Negative (Negative); Blood Urine Negative (Negative); Color Urine Yellow (Yellow); Glucose Urine UA Negative (Negative); Hyaline Casts Urine Present /lpf; Ketones Urine 4+ mg/dL (Negative); Leukocyte Esterase Ur 1+ LEU/UL (Negative); Nitrate Urine Negative (Negative); Protein Urine Negative (Negative); RBC Urine 0-2 /hpf (0-2); Specific Grav Ur 1.021 (1.001-1.035); Squamous Epithelial Cell Urine Many /hpf (Few); Urobilinogen Urine 0.2 mg/dL (<2.0)
[2022-10-29 14:05] LABS: Add Urine Microscopic? YES
[2022-10-29 14:31] VITALS: BP 108/56; PULSE 73
[2022-10-29] MEDS: LACTATED RINGERS 1,000 ML 999 ML IV CONT (16:31)
[2022-10-29] MEDS: ONDANSETRON INJ 4 MG/2 ML VIAL IV PUSH (16:32)
[2022-10-29 16:33] VITALS: BMI 26.4
[2022-10-29] MEDS: DEXTROSE 5%/LACTATED RINGERS 1,000 ML 250 ML IV CONT (17:35)
[2022-10-29 19:02] VITALS: BP 94/42; PULSE 90; TEMP 36.9
--- NOTE | 2022-10-29 20:25 | PC.NURSE ---
Mason Escudero CNM called in. Update given. June D/C home
[2022-10-29] MEDS: ACETAMINOPHEN 500 MG TABLET 1000 MG PO (20:50)
--- NOTE | 2022-11-06 16:17 | P.PNOB_ITS ---
OB - Triage/Final Diagnosis Visit Information Date of evaluation: 10/29/22 Reason for evaluation: threatened labor Comments/Additional reasons for admission: I have assessed the risk for this patient, Danita Page, and determined that she would benefit from observation care. Evaluation Laboratory results: Laboratory Tests 10/29/22 13:37 Urine Color Yellow Urine Appearance Cloudy H Urine pH 7.0 Ur Specific [place] 1.021 Urine Protein Negative Urine Glucose (UA) Negative Urine Ketones 4+ H Ur Blood (Man) Negative Urine Nitrate Negative Urine Bilirubin Negative Urine Urobilinogen 0.2 Leukocyte Esterase Rfl 1+ H Urine RBC 0-2 Urine WBC 11-20 H Ur Squamous Epith Cells Many H Urine Bacteria 4+ H Urine Casts 3-5 Hyaline Casts Present
== END 2022-10-29 20:52 | disposition home or self-care (01) ==
PROVIDERS: Admitting Provider Obstetrics & Gynecology Gynecology; Visit Provider Obstetrics & Gynecology Gynecology
DX: O47.03 False labor before 37 completed weeks of gestation, third trimester (principal); Z3A.30 30 weeks gestation of pregnancy
CPT/HCPCS: 81001; 87086; 96374; A9270; G0378; G0379; J2405; J7120; J7121

== ENCOUNTER 2022-12-15 14:35 | Observation (INO) | payer OTHER, SELFPAY ==
[2022-12-15 15:15] VITALS: BMI 27.8
--- NOTE | 2022-12-15 16:19 | PC.NURSE ---
Patient came in with complaints of leaking fluid and benny. ROM+ test performed and was negative. Patient is benny and rating her contraction pain a 4/10. Patient's cervix was found to be 1/thick/high with a Caceres score of 1. Repeat cervical exam after one hour of monitoring and cervix was unchanged. Patient requests to go home. Spoke with Dr. Cheng on the phone at [phone] and updated MD on patient and status as well as cervical exams. Verbal orders received for discharge. Patient agrees with plan of care and has no questions at this time.
--- NOTE | 2022-12-15 18:24 | LDADM ---
This patient, Danita Page, was admitted to Labor/Delivery/Recovery 104 on 12/15/22 at 14:35. Plans for labor, pain management and were discussed with patient. Patient/family oriented to hospital policies and general routines including ID bracelet, bed and alarms, visiting hours, pain management, procedures, bathroom and other care routines, personal items, smoking policy, room service/diet and guest tray routines, security routines, and visiting hours. Patient/Family are encouraged to report perceived risks to care and to ask questions if they do not understand what they are told or what they should do. See OBIX for further documentation.
--- NOTE | 2022-12-18 17:46 | PM.OBTRLD ---
OB - Triage/Final Diagnosis Visit Information Reason for evaluation: threatened labor Comments/Additional reasons for admission: I have assessed the risk for this patient, Danita Page, and determined that she would benefit from observation care.
== END 2022-12-15 16:33 | disposition home or self-care (01) ==
PROVIDERS: Admitting Provider Obstetrics & Gynecology Gynecology; Visit Provider Obstetrics & Gynecology Gynecology
DX: O47.1 False labor at or after 37 completed weeks of gestation (principal); Z3A.37 37 weeks gestation of pregnancy
CPT/HCPCS: 84112; G0378; G0379

== ENCOUNTER 2022-12-25 00:13 | Inpatient (IN) | payer OTHER, SELFPAY ==
[2022-12-25] VITALS (161 sets, daily range): BP systolic 62–129; BP diastolic 32–102; PULSE 55–143; RESP 18; TEMP 36.2–37.1; O2SAT 97–100
--- NOTE | 2022-12-25 00:46 | LDADM ---
This patient, Danita Page, was admitted to Labor/Delivery/Recovery 107 on 12/25/22 at 00:13. Plans for labor, pain management and were discussed with patient. Patient/family oriented to hospital policies and general routines including ID bracelet, bed and alarms, visiting hours, pain management, procedures, bathroom and other care routines, personal items, smoking policy, room service/diet and guest tray routines, security routines, and visiting hours. Patient/Family are encouraged to report perceived risks to care and to ask questions if they do not understand what they are told or what they should do. See OBIX for further documentation.
[2022-12-25] MEDS: miSOPROStol 25 MCG TABLET VAGINAL (01:05)
[2022-12-25 03:30] LABS: Basophils Percent Auto 0.4 % (0.2-1.2); Eosinophils Percent Auto 0.4 % (0-4.4); Hematocrit 35.8 % (37.0-47.0); Hemoglobin 11.9 g/dL (12.0-15.0); Immature Granulocyte Absolute 0.03 K/mm3 (0.00-0.031); Immature Granulocyte Percent A 0.4 % (0-0.5); Lymphocytes Absolute Auto 2.62 K/mm3 (0.9-3.2); Lymphocytes Percent Auto 32.3 % (18.3-44.2); Mean Corpuscular HGB Conc 33.2 g/dl (32-36); Mean Corpuscular Hemoglobin 29.9 pg (26-34); Mean Corpuscular Volume 89.9 fl (80-100); Mean Platelet Volume 11.3 fl (7.4-10.4); Monocytes Absolute Auto 0.6 K/mm3 (0.1-0.6); Monocytes Percent Auto 7.4 % (2.6-8.5); Neutrophils Absolute Auto 4.8 K/mm3 (1.3-6.7); Neutrophils Percent Auto 59.1 % (45.5-73.1); Platelet Count Result 229 k/mm3 (150-375); Red Blood Count 3.98 M/mm3 (4.2-5.4); Red Cell Distribution Width 14.4 % (11.5-14.5); White Blood Count 8.1 K/mm3 (4.5-10.0)
[2022-12-25 05:02] LABS: HIV 1/2 Ab P24 Ag Result Negative (Negative)
[2022-12-25] MEDS: LACTATED RINGERS 1,000 ML 125 ML IV CONT ×2 (06:55→09:38)
[2022-12-25] MEDS: OXYTOCIN 30 UNITS/NS 500 ML 30 UNITS/500 ML BAG IV CONT (06:56)
--- NOTE | 2022-12-25 09:06 | WPDOBADMIT ---
Obstetrics - Admit Note Admission Note: record reviewed. No pertinent additions to the history and/or any subsequent changes in the physical findings that are not consistent with the expected course of the were found. Additions to the history and/or subsequent changes in the physical findings follow. Here at 39 wks for MIL. Cervix /-2 SROM prior to my arrival. FHTs reactive. Pitocin per protocol.
[2022-12-25] MEDS: ONDANSETRON INJ 4 MG/2 ML VIAL IV PUSH (09:47)
--- NOTE | 2022-12-25 09:47 | WPDANESEPP ---
Anes - Eval Pre Procedure Procedure: labor epidural Date/Time: 12/25/22 09:47 Preop Diagnosis: labor pain Pre Op Diagnosis: IOL Patient Data Age: 27 Gender: F Height: Weight: Last Vital Signs Temp 36.5 C 12/25/22 08:10 Pulse 92 12/25/22 09:46 BP 119/59 L 12/25/22 09:46 O2 Del Method Room Air 12/25/22 07:18 Allergies Allergy/AdvReac Type Severity Reaction Status Date / Time No Known Allergies Allergy Verified 12/15/22 16:24 Home Medications Medication Instructions Recorded Confirmed Type ondansetron 4 mg disintegrating 4 mg PO Q6H PRN nausea and 02/01/22 12/15/22 Rx tablet vomiting #14 tabs ergocalciferol (vitamin D2) 1,250 1,250 mcg PO WEEKLY 09/14/22 12/15/22 History mcg (50,000 unit) capsule escitalopram oxalate 10 mg tablet 10 mg PO DAILY 09/14/22 12/15/22 History ferrous sulfate 325 mg (65 mg 325 mg PO DAILY 12/15/22 12/15/22 History iron) tablet (FeroSul) valacyclovir 500 mg tablet 500 mg PO DAILY 12/15/22 12/15/22 History (Valtrex) Laboratory Tests 12/25/22 12/25/22 00:45 04:06 WBC 8.1 K/mm3 (4.5-10.0) RBC 3.98 L M/mm3 (4.2-5.4) Hgb 11.9 L g/dL (12.0-15.0) Hct 35.8 L % (37.0-47.0) MCV 89.9 fl (80-100) MCH 29.9 pg (26-34) MCHC 33.2 g/dl (32-36) RDW 14.4 % (11.5-14.5) Plt Count 229 k/mm3 (150-375) MPV 11.3 H fl (7.4-10.4) Immature Gran % (Auto) 0.4 % (0-0.5) Neut % (Auto) 59.1 % (45.5-73.1) Lymph % (Auto) 32.3 % (18.3-44.2) [place] % (Auto) 7.4 % (2.6-8.5) Eos % (Auto) 0.4 % (0-4.4) Baso % (Auto) 0.4 % (0.2-1.2) Lymph # (Auto) 2.62 K/mm3 (0.9-3.2) [place] # (Auto) 0.6 K/mm3 (0.1-0.6) Eos # (Auto) 0.0 K/mm3 (0-0.3) Baso # (Auto) 0.0 K/mm3 (0.0-0.1) Abs Immat Gran (auto) 0.03 K/mm3 (0.00-0.031) Absolute Neuts (auto) 4.8 K/mm3 (1.3-6.7) Absolute Nucleated RBC 0.0 K/mm3 (0.0-0.012) Nucleated RBC % 0.0 % (0.0-0.2) RPR Pending HIV 1&2 Ab/P24 Ag 4thGn Negative (Negative) Blood Type B Positive Antibody Screen Negative Patient hx anesthesia problems: none Family hx anesthesia problems: none Results Review: All pre-operative results and documents have been reviewed as part of the pre-operative evaluation. [facility] Past Medical History Medical History IUFD at 20 weeks or more of gestation Family History Family History Other No pertinent family history Social History Social History (Updated 02/08/22 @ 11:15 by Kim Carrillo NP) Smoking status: Former smoker Tobacco type: e-cigarettes/vaping Second hand tobacco smoke exposure: No Substance use: former Last use: Prior to knowledge of Lack of Transportation: No Lack of Food: Never True Current Housing: I Have Housing Concerned About Future Housing: No Difficulty Paying Gas/Electric Bills: No Difficulty Paying for Meds: No Currently Unemployed: No Education: Associate Degree Difficulty w/ Childcare or Family Care: No Gender identity (if verbalized by the patient): Female Spiritual care concerns: No Exam Day of Procedure 12/25/22 09:47
--- NOTE | 2022-12-25 14:57 | PM.OBPRVD ---
OB - Vaginal Delivery Note Procedure Delivery date: 12/25/22 Induction method: Per Pitocin Protocol Delivery monitor: External FHT and Internal FHT Route of delivery: Laceration Description: None Specimen: No Quantitative Blood Loss (ml): 100 Anesthesia type: Epidural Disposition: Floor Complications: No immediate complications [place] Baby Date of : 12/25/22 Weeks of gestation at delivery: 39 gender: Male presentation: vertex position: Right Occiput Anterior Placenta delivery description: Spontaneous Cord Vessel Description: 3 Vessels and Delayed Cord Clamping score one minute: 9 score five minutes: 9
--- NOTE | 2022-12-25 15:00 | PM.OBDSVD ---
DS: Admitting Diagnosis Discharge Date 12/27/22 Admitting Diagnosis IUP 39 wks Hx IUFD DS: Discharge Diagnosis Discharge Diagnosis (1) (normal spontaneous vaginal delivery): Code(s): O80 - Encounter for full-term uncomplicated delivery Status: Acute OB - DS: Summary OB Procedures : Ultrasound OB Procedures Intrapartum: Spontaneous Vag Delivery OB Procedures: : None Peripartum Data Delivery Method: Natural Vaginal Laceration Description: None complications: none Status at Discharge Functional status at discharge: independent ambulation Overall status at discharge: patient is progressing back to baseline Time Spent with Patient Time attestation: Total time spent providing and/or coordinating discharge services: DS: Data Data Completed and Pending Labs on day of discharge: Labs from last 24 hours 12/25/22 12/25/22 04:06 00:45 WBC 8.1 RBC 3.98 L Hgb 11.9 L Hct 35.8 L MCV 89.9 MCH 29.9 MCHC 33.2 RDW 14.4 Plt Count 229 MPV 11.3 H Immature Gran % (Auto) 0.4 Neut % (Auto) 59.1 Lymph % (Auto) 32.3 Sutter % (Auto) 7.4 Eos % (Auto) 0.4 Baso % (Auto) 0.4 Lymph # (Auto) 2.62 Sutter # (Auto) 0.6 Eos # (Auto) 0.0 Baso # (Auto) 0.0 Abs Immat Gran (auto) 0.03 Absolute Neuts (auto) 4.8 Absolute Nucleated RBC 0.0 Nucleated RBC % 0.0 RPR Pending HIV 1&2 Ab/P24 Ag 4thGn Negative Blood Type B Positive Antibody Screen Negative Discharge Plan Discharge Attending physician on discharge: Perri Cheng Consulting providers: Carmen Rios; Martin Weems Discharging Clinician: Trung Clark Anticipated Discharge Date/Time: 12/27/22 15:01 Patient Disposition: Home, Self-Care Activity: may shower and pelvic rest Diet: regular Discharge Instructions: Education: Mom and Baby Guide Given to: Mother Follow-Up: Call your delivering provider's office for an appointment to be seen in: call for follow up appt Mom and baby should come to the [facility] for the follow-up appointment. Appointment Date/Time: December 28, 2022 at 1:30 am What to expect at your follow-up visit: Blood Pressure Check Physical Assessment Call [phone] if you are unable to keep your appointment time. BREAST CARE: * Wear a snug supportive bra. * For engorgement discomfort: Breast Feeding: * Apply warm moist washcloths * Express milk as needed to relieve engorgement * Wear loose clothing Bottle Feeding: * May apply ice packs * For sore nipples: * Identify correct latch-on * Apply warm moist washcloths before and after nursing * Air dry nipples after nursing * May apply Lansinoh cream to nipples ABDOMINAL INCISION: (if applicable) * Allow incision to air dry * Do NOT use lotions for powders on your incision * When showering, allow soap and water to run over the incision, but do not wash incision PERINEAL CARE: * Until bleeding stops, use your jessica bottle after urinating * Change your pad frequently throughout the day * You may take sitz baths several times a day (fill your bathtub with warm water and soak for 20 minutes.) Do NOT bathe in the water * No tub baths until seen by your physician - You may shower ACTIVITY: * Restas much as possible. * Do not exercise or lift anything heavier than your baby (such as laundry or other children.) * Avoid stairs or driving as much as possible. * Do not put anything into the vagina. No douching, tampons, or sexual activity until seen by physician. NOTIFY PHYSICIAN IF YOU HAVE ANY QUESTIONS OR IF ANY OF THE FOLLOWING SYMPTOMS OCCUR: * If your vaginal bleeding becomes foul smelling. * If your vaginal bleeding becomes more heavy than a period or if your bleeding changes from pink to bright red. However, you may pass an occasional walnut-sized clot
[2022-12-25] MEDS: OXYTOCIN 30 UNITS/NS 500 ML 30 UNITS/500 ML BAG 125 UNITS IV CONT (15:22)
[2022-12-25 17:00] LABS: Rapid Plasma Reagin Non-Reactive (NonReactive)
[2022-12-25] MEDS: BENZOCAINE 20% AER SPR (*SP) 56 GM CAN 1 SPRAY TOPICAL (17:00)
[2022-12-25] MEDS: WITCH HAZEL 40 PADS 1 PAD TOPICAL (17:00)
--- NOTE | 2022-12-25 17:49 | PC.NURSE ---
Patient transferred to post room #288 via (deidre ). Support person present. Oriented to unit, room, information board, rooming in, admission packet and security measures. Patient verbalizes understanding.
[2022-12-25] MEDS: IBUPROFEN 600 MG TABLET PO (19:58)
[2022-12-26 00:45] VITALS: BP 108/64; PULSE 60; RESP 18; TEMP 36.6; O2SAT 99
[2022-12-26 04:00] VITALS: BP 102/64; PULSE 60; RESP 19; TEMP 36.6; O2SAT 98
[2022-12-26 04:55] LABS: Hematocrit 35.3 % (37.0-47.0); Hemoglobin 11.9 g/dL (12.0-15.0)
[2022-12-26] MEDS: ACETAMINOPHEN 325 MG TABLET 650 MG PO ×3 (05:30→20:18)
--- NOTE | 2022-12-26 05:49 | PM.OBPNVD ---
OB - PN: Subj Subjective Date/time seen: 12/26/22 05:49 Patient comments: no complaints and pain well controlled baby status: doing well OB - PN: Obj Data Labs 12/26/22 03:54 Labs: Laboratory Results - last 24 hr 12/25/22 12/26/22 00:45 03:54 Hgb 11.9 L Hct 35.3 L RPR Non-reactive OB - PN A/P Plan day: 1 Plan: routine care and other (Plans condoms until Liletta placed) Time Spent With Patient Time: Total time spent is greater than 50% in coordination of care (as documented) at patient's floor/unit and/or counseling patient: Exam : Bimanual exam- vagina & uterus: other (Uterus firm, nt @U)
[2022-12-26] MEDS: DOCUSATE SODIUM 100 MG CAPSULE PO (08:00)
[2022-12-26] MEDS: MULTIVIT/MIN/PREN/FOL AC/IRON TABLET 1 TAB PO (08:00)
[2022-12-26] MEDS: WITCH HAZEL 40 PADS 1 PAD TOPICAL (08:00)
[2022-12-26 09:05] VITALS: BP 105/65; PULSE 61; RESP 16; TEMP 36.2; O2SAT 99
--- NOTE | 2022-12-26 09:19 | WPDANLDPN2 ---
Anes-Prog Note L&D Date/Time: 12/26/22 09:19 Comfortable throughout: labor and delivery Neuraxial method: epidural Epidural/Spinal procedure site: clean & non-tender Neuro status: Neuro function grossly intact. Cardiovascular status: normal Respiratory status: normal Airway patency: baseline Mental status: baseline Post-Op hydration status: normal Vital Signs: Last Vital Signs Temp 36.6 C 12/26/22 04:00 Pulse 60 12/26/22 04:00 Resp 19 12/26/22 04:00 BP 102/64 12/26/22 04:00 Pulse Ox 98 12/26/22 04:00 O2 Del Method Room Air 12/25/22 07:18 Pain score (VAS): 2/10 I/O: Intake & Output 12/25/22 12/26/22 12/26/22 23:59 07:59 15:59 Intake Total 600 Output Total 150 Balance 450 Post-procedural complaints: none Patient feedback: Patient satisfied with anesthetic care.
[2022-12-26 12:36] VITALS: BP 114/77; PULSE 66; RESP 16; TEMP 36.4; O2SAT 99
[2022-12-26] MEDS: IBUPROFEN 600 MG TABLET PO ×2 (13:30→20:19)
[2022-12-26 20:00] VITALS: BP 122/82; PULSE 60; RESP 16; TEMP 36.8; O2SAT 100
[2022-12-26] MEDS: ESCITALOPRAM OXALATE 10 MG TABLET 20 MG PO (20:19)
[2022-12-26 20:21] VITALS: BMI 27.8
--- NOTE | 2022-12-27 07:44 | P.DS_ITS ---
DS: Admitting Diagnosis Discharge Date 12/27/2022 Admitting Diagnosis DS: Discharge Diagnosis Discharge Diagnosis (1) , delivered: Code(s): O80 - Encounter for full-term uncomplicated delivery Status: Acute OB - DS: Summary OB Procedures : None OB Procedures Intrapartum: Spontaneous Vag Delivery OB Procedures: : None Peripartum Data Laceration Description: None Time Spent with Patient Time attestation: Total time spent providing and/or coordinating discharge services: Discharge Plan Discharge Attending physician on discharge: Perri Cheng Discharging Clinician: Trung Clark Anticipated Discharge Date/Time: 12/27/22 15:01 Patient Disposition: Home, Self-Care Activity: may shower and pelvic rest Diet: regular Patient Instructions: Antibiotic Form Stand Alone Forms: General Discharge Information Follow-up/Referrals: Perri Cheng MD [Physician] - 6 Weeks Discharge Medications: Continued ergocalciferol (vitamin D2) 1,250 mcg (50,000 unit) capsule 1,250 mcg PO WEEKLY escitalopram oxalate 10 mg tablet 20 mg PO DAILY ferrous sulfate [FeroSul] 325 mg (65 mg iron) tablet 325 mg PO DAILY Discontinued ondansetron 4 mg tablet,disintegrating 4 mg PO Q6H PRN (Reason: nausea and vomiting) Qty: 14 0RF valacyclovir [Valtrex] 500 mg Tablet 500 mg PO DAILY Date of admission: 12/25/22 00:13 Primary Care Provider: PHYSICIAN,PACKAGER OR PACKER AND WEIGHER Admitting Provider: Perri Cheng Attending physician on admission: Perri Cheng Condition: Stable Care Plan Goals: Plans condoms until Liletta IUD placed for control
[2022-12-27] MEDS: IBUPROFEN 600 MG TABLET PO (07:45)
[2022-12-27] MEDS: DOCUSATE SODIUM 100 MG CAPSULE PO (07:45)
[2022-12-27] MEDS: ACETAMINOPHEN 325 MG TABLET 650 MG PO (07:46)
[2022-12-27 07:49] VITALS: BP 114/55; PULSE 69; RESP 16; TEMP 36.6; O2SAT 99
[2022-12-29 13:59] VITALS: BP 110/73; PULSE 54; RESP 18; TEMP 36.7; O2SAT 97
== END 2022-12-27 14:02 | disposition home or self-care (01) | DRG 560 ==
LOC: ANHLDR 15:01 → ANHOB2 12-26 05:50 → ANHLDR 12-29 12:59 → ANHOB2 12-29 12:59
PROVIDERS: Admitting Provider Obstetrics & Gynecology Gynecology; Visit Provider Obstetrics & Gynecology
DX: O80 Encounter for full-term uncomplicated delivery (principal); Z37.0 Single live birth; Z3A.39 39 weeks gestation of pregnancy
CPT/HCPCS: 36415; 85014; 85018; 85025; 86592; 86703; 86850; 86900; 86901; A9270; G0432; J2405; J2590; J2795; J7120

== ENCOUNTER 2024-03-31 09:42 | Outpatient (CLI) | payer OTHER, SELFPAY ==
--- NOTE | ~2024-03-31 | US_ITS ---
EXAMINATION: US OB <= 14 weeks fetus DATE: 03/31/2024 10:48 INDICATION: Uncertain dating of TECHNIQUE: Real-time pelvic ultrasound utilizing both a transvaginal and transabdominal probe was pe rformed. The interpreting radiologist was not present for the study. COMPARISON: None. FINDINGS: The uterus measures 8.2 x 9.5 x 11.2 cm. There is a single fetus within the gestational sacwith the crown rump length measuring 5.3 cm, which correlates with an estimated gestational age of 12 weeks an d 0 days. heart motion is identified measuring 153 beats per minute (bpm) by M-mode Doppler. Th e placenta appears to be developing anteriorly. The right ovary measures 2.6 x 2.0 x 1.0 cm. The left ovary measures 3.9 x 2.4 x 2.2 cm. 2.1 cm anech oic likely corpus luteum cyst in the left ovary. Vascular flow is identified in both ovaries on color Doppler. There is no free fluid in the pelvis. IMPRESSION: 1. Single living fetus with heart rate of 153 bpm. 2. Gestational age by ultrasound of 12 weeks 0 day(s) +/- 1 week and 1 day(s) with ultrasound estima peggy date of delivery (TITUS) of 10/13/2024. Reviewed, dictated and finalized at location A. E ACTOR IMPRESSION: 1. Single living fetus with heart rate of 153 bpm. 2. Gestational age by ultrasound of 12 weeks 0 day(s) +/- 1 week and 1 day(s) with ultrasound estimated date of delivery (TITUS) of 10/13/2024.
--- OUTSIDE RECORDS SUMMARY | 2024-03-31 09:56 | XMS_ITS | Clinical Summary ---
Author Organization [facility] Address [address] [place] [address] Care Team Providers Care French Drawer Name Role Phone Peyton Vera MD Primary Care Provider [phone] Peyton Vera MD Unavailable [phone] Source Comments [facility],non-owned Affiliates and Associated Physician Practices is amultiple site organization consisting of ambulatory clinics and hospital sitesin [place], [place], [place] and [place]. This disclosure is being madepursuant to the Care Everywhere program and may not contain all information available regarding this patient. Last updated 17.[facility] Allergies No known active allergies Medications * Be aware that medications may not be up to date on this document. Alwaysverify current medications with the patient. Medication Sig Dispensed Refills Start Date End Date Status Vit-Fe Fumarate-FA ( VITAMIN) 28-0.8 MG tablet Take 1 tablet by mouth once daily Active vitamin D3 (CHOLECALCIFEROL) 25 MCG (1000 UNITS) tablet Take by mouth once daily Active Active Problems Patient Care Coordination No te Formatting of this note migh t be different from the original. Nopp/mfcc 12/2018 Problem Noted Date Diagnosed Date Vaginal bleeding before 22 weeks gestation 12/28 Screening, , for anatomic survey Encounter for screening for cervical l ength Social History Tobacco Use Types Packs/Day Years Used Date Smoking Tobacco: Never Smokeless Tobacco: Never Alcohol Use Standard Drinks/Week Comments Never 0 (1 standard drink = 0.6 oz pur e alcohol) AUDIT-C Answer Date Recorded Frequency of Alcohol Consumption Never 12/28/2018 Average Number of Drinks Not on file 019 Frequency of Binge Drinking Not on file 06/2018 Sex and Gender Information Value Date Recorded Sex Assigned at Not on file Gender Identity Not on file Sexual Orientation Not on file Last Filed Vital Signs Vital Sign Reading Time Taken Comments Blood Pressure 108/59 12/28/2018 5:05 PM AUDIO DIRECTOR Pulse - - Temperature 36.8 C (98.3 F) 12/28/2018 2:44 PM AUDIO DIRECTOR Respiratory Rate 18 12/28/2018 2:44 PM AUDIO DIRECTOR Oxygen Saturation 99% 12/28/2018 3:01 PM AUDIO DIRECTOR Inhaled Oxygen Concentration - - Weight 54.9 kg (121 lb) 12/28/2018 2:50 PM AUDIO DIRECTOR Height 165.1 cm (5' 5 ) 12/28/2018 2:50 PM AUDIO DIRECTOR Body Mass Index 20.14 12/28/2018 2:50 PM AUDIO DIRECTOR Plan of Treatment Health Maintenance Due Date Last Done Comments PAP SMEAR 1993 HIV SCREENING 2008 HEPATITIS C SCREENING 09/30/2011 DTAP/TDAP/TD VACCINES (1 - Tdap) 2012 HEPATITIS B VACCINE (1 of 3 - 19+ 3-dose series) 2012 COVID-19 VACCINE ( - 2023-2 5 season) 2023 INFLUENZA VACCINE (#1) 2023 DEPRESSION SCREENING 02/24/2024 ZOSTER VACCINE (1 of 2) 10/05/2043 HIB VACCINE Aged Out No longer eligi ble based on patient's age to complete this topic HPV VACCINE Aged Out No longer eligi ble based on patient's age to complete this topic MENINGOCOCCAL (Group B) VACCINE Aged Out No longer eligible based on patient's age to complete this topic MENINGOCOCCAL VACCINE Aged Out No farnaz naam eligible based on patient's age to complete this topic PNEUMOCOCCAL VACCINE Aged Out No long er eligible based on patient's age to complete this topic Advance Directives * Full Code (Latest Code Status on File) Date Activated Date Inactivated Comments 12/28/2018 4:13 PM 12/28/2018 6:25 PM Care Teams French Drawer Relationship Specialty Start Date End Date Peyton Vera MD [address] [facility] [address] [place] [address] PCP - General 01/04/19 Peyton Vera MD [address] [place], [place] [id number] Family Medicine 01/04/19
--- OUTSIDE RECORDS SUMMARY | 2024-03-31 09:56 | XMS_ITS | Clinical Summary ---
Author Organization [facility] Address [address] [place] [address] Care Team Providers Care Vasc Tech Name Role Phone Daya Hoskins NP Primary Care Provider Allergies No known active allergies Encounters Date Type Department Care Team Description 03/16/2024 Telephone [facility] Accountable Care Organization [address] [place] [id number] Iman Kidd MA Unsuccessful Phone Call 1 (AWV SCHEDULING) from Last 3 Months Social History Tobacco Use Types Packs/Day Years Used Date Smoking Tobacco: Never Assessed Personal Safety Answer Date Recorded Getting School Help Needed Denies 02/14 Comments Unknown Sex and Gender Information Value Date Recorded Sex Assigned at Not on file Legal Sex Female 7:27 PM TERRITORY BUSINESS MANAGER Gender Identity Not on file Sexual Orientation Not on file Obstetrics History Para Term AB IAB SAB Ectopic Multiple Livin g Live Births 1 Date Outcome GA Total Labor Labor/2nd/3rd Weight Sex Type Anes PTL Shalini A1 A5 Name Clin Last Filed Vital Signs Vital Sign Reading Time Taken Comments Blood Pressure 116/84 04/23/2022 4:44 PM TERRITORY BUSINESS MANAGER Pulse 64 04/23/2022 4:44 PM TERRITORY BUSINESS MANAGER Temperature 36.6 C (97.8 F) 04/23/2022 12:59 PM TERRITORY BUSINESS MANAGER Respiratory Rate 18 04/23/2022 4:44 PM TERRITORY BUSINESS MANAGER Oxygen Saturation 99% 04/23/2022 4:44 PM TERRITORY BUSINESS MANAGER Inhaled Oxygen Concentration - - Weight 57 kg (125 lb 10.6 oz) 04/23/2022 12:59 P M TERRITORY BUSINESS MANAGER Height 165.1 cm (5' 5 ) 04/23/2022 12:59 PM TERRITORY BUSINESS MANAGER Body Mass Index 20.91 04/23/2022 12:59 PM TERRITORY BUSINESS MANAGER Plan of Treatment Health Maintenance Due Date Last Done Comments Cervical Cancer Screening 1993 Depression Screening 1993 Hepatitis C Screening 1993 Regular Well Visit/Exam 18-64 10/05/2011 DTaP/Tdap/Td Vaccine (8 - Td or Tdap) 12/21/2022 12/21/2012, 10/20/2005, 01/04/1998, Additional history exists Influenza Vaccine (#1) 2023 4, 03/28/2013, 11/16/2009, Additional history exists Varicella Vaccines Completed 09/28/2007, 12/31/1999 HPV Vaccines Aged Out No longer eligi ble based on patient's age to complete this topic Pneumococcal vaccine <65 Aged Out No longer eligible based on patient's age to complete this topic Insurance Member Subscriber Plan / Payer (Ef fective 2017-Present) Name:Danita Page Relation to Subscriber:Self Name:Danita Page Payer ID:[id number] (NAIC) Type:MEDICAID RISK OTHER Address: [place] [id number] [facility] Care Teams Vasc Tech Relationship Specialty Start Date End Date Daya Hoskins, HAMMER ADJUSTER 2022 [address] [address] PCP - General 12/27/18
--- OUTSIDE RECORDS SUMMARY | 2024-03-31 09:56 | XMS_ITS | Referral Summary ---
Author Organization [facility] Address [address] [place] [address] Care Team Providers Care Health Nurse Name Role Phone Peyton Vera MD Primary Care Provider [phone] Peyton Vera MD Unavailable [phone] Source Comments [facility],non-owned Affiliates and Associated Physician Practices is amultiple site organization consisting of ambulatory clinics and hospital sitesin [place], [place], [place] and [place]. This disclosure is being madepursuant to the Care Everywhere program and may not contain all information available regarding this patient. Last updated 17.[facility] Allergies No known active allergies Medications * [...] Comments Blood Pressure 108/59 12/28/2018 5:05 PM HOUSEKEEPING CLEANER Pulse - - Temperature 36.8 C (98.3 F) 12/28/2018 2:44 PM HOUSEKEEPING CLEANER Respiratory Rate 18 12/28/2018 2:44 PM HOUSEKEEPING CLEANER Oxygen Saturation 99% 12/28/2018 3:01 PM HOUSEKEEPING CLEANER Inhaled Oxygen Concentration - - Weight 54.9 kg (121 lb) 12/28/2018 2:50 PM HOUSEKEEPING CLEANER Height 165.1 cm (5' 5 ) 12/28/2018 2:50 PM HOUSEKEEPING CLEANER Body Mass Index 20.14 12/28/2018 2:50 PM HOUSEKEEPING CLEANER Functional Status Functional Status Response Date of Assess ment Is person deaf or have serious hearing difficult y? No 12/28/2018 Is person blind or have serious difficulty seein g? No 12/28/2018 Does person have serious dif ficulty walking/climbing stairs? No 12/28/2018 Does person have difficulty dressing/bathing? No 12/28/2018 Does person have difficulty doing errands alone? No 12/28/2018 Cognitive Status Response Date of Assessm ent Does person have difficulty concentrating/remembering/making decisions? No 12/28/2018 Plan of Treatment Not on file Advance Directives * Full Code (Latest Code Status on File) Date Activated Date Inactivated Comments 12/28/2018 4:13 PM 12/28/2018 6:25 PM Care Teams Health Nurse Relationship Specialty Start Date End Date Peyton Vera MD [address] [place] [address] PCP - General 01/04/19 Peyton Vera MD [address] [place], [place] [phone] Family Medicine 01/04/19
--- OUTSIDE RECORDS SUMMARY | 2024-03-31 09:56 | XMS_ITS | Clinical Summary ---
Author Organization [facility] Address [address] [place] [address] Phone Care Team Providers Care Cellophane Press Operator Name Role Phone Unavailable Primary Care Provider Unavailabl e Social History Tobacco Use Types Packs/Day Years Used Date Smoking Tobacco: Never Assessed Comments Unknown Sex and Gender Information Value Date Recorded Sex Assigned at Not on file Legal Sex Female 5:07 PM CDT Gender Identity Not on file Sexual Orientation Not on file Plan of Treatment Health Maintenance Due Date Last Done Comments DTAP/TDAP/TD VACCINES (1 - Tdap) 2012 HEPATITIS B VACCINES (1 of 3 - 19+ 3-dose series) 2012 INFLUENZA VACCINE (#1) 2023 CERVICAL CANCER SCREENING 10/05/2023 12/08/2016 HPV VACCINES Aged Out No longer eligi ble based on patient's age to complete this topic Insurance [place]
--- OUTSIDE RECORDS SUMMARY | 2024-03-31 09:56 | XMS_ITS | Encounter Summary ---
Author Organization [facility] Address [address] [place] [address] Care Team Providers Care Patient Accounts Coordinator Name Role Phone Peyton Vera MD Primary Care Provider [phone] Peyton Vera MD Unavailable [phone] Encounter Details Date Type Department Care Team (Late st Contact Info) Description 01/10/2019 Lab Requisition [facility] Care Pathology Lab [address] [place] [address] Melissa Brown MD [address] [place] [address] Illness, unspecified Social History Tobacco Use Types Packs/Day Years Used Date Smoking Tobacco: Never Smokeless Tobacco: Never Alcohol Use Standard Drinks/Week Comments Never 0 (1 standard drink = 0.6 oz pur e alcohol) AUDIT-C Answer Date Recorded Frequency of Alcohol Consumption Never 12/28/2018 Average Number of Drinks Not on file 019 Frequency of Binge Drinking Not on file 06/2018 Comments Yes Sex and Gender Information Value Date Recorded Sex Assigned at Not on file Gender Identity Not on file Sexual Orientation Not on file documented as of this encounter Functional Status Functional Status Response Date of [...] person have difficulty concentrating/remembering/making decisions? No 12/28/2018 documented as of this encounter Plan of Treatment Not on file documented as of this encounter Procedures Procedure Name Priority Date/Time Associated Diagnosis Comments AUTOPSY (U) Routine 01/10/2019 10:42 AM RECRUITING MANAGER Illness, unspecified documented in this encounter Results * AUTOPSY (SLU) (01/10/2019 10:42 AM RECRUITING MANAGER) Case Report Autopsy Report Case: [id number] Authorizing Provider: Melissa Brown MD Ordering Provider: Melissa Brown MD Ordering Location: [facility] Care Pathology Lab Pathologist: Pritesh Benjamin MD Specimen: Autopsy 0 7:10 PM RECRUITING MANAGER [facility] PATH[facility] FINAL ANATOMIC DIAGNOSES I. Intrauterine Demise with Delivery at 20 1/7 Weeks' Gestation A) Stillborn girl with growth parameters appropriate for gestational age 1. Mass, 186 g (normal expected (NE), 313 g +/- 139 g) 2. Length, 25 cm (NE, 24.9 cm +/- 2.3 cm) 3. 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 Histologic findings consistent with 1-2-day interval between demise and delivery C) Prominent clitoris D) Intact circulation 1. Patent ductus arteriosus 2. Probe-patent, valve-competent foramen ovale E) Mildly abnormal facies: slightly upslanting palpebral fissures F) Attached umbilical cord with single umbilical artery ( two-vessel cord ) II. Placenta and Umbilical Cord ([facility] case [id number]) A) Early second trimester placenta, 48 g (NE, 112 g) B) vascular malperfusion 1. 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 Normal whole genome chromosome SNP microarray analysis The interpretation of this case is performed by [facility] at [facility], [facility] [place] [address]. 0 7:10 PM [facility] PATHOLOGY [facility] Clinical History Barry Page, also known as Clement Wheeler, was stillborn to Bri Page on 01/06/19 at 20 weeks' gestation. Delivery occurred at [facility] ([address] [place] [address]). Ms. Page, a 23-year-old woman who had previously delivered a living at term gestation, had a smith intrauterine confirmed and dated by ultrasonography at 6 weeks of gestation. The results of her initial laboratory studies included a blood type of B+, negative routine infectious serologic studies, and rubella-immune status. Sonography at 18 4/7 weeks' gestation indicated unfused membranes which carried a risk for aneuploidy. Non-invasive testing was performed to rule out aneuploidy with results that were reportedly low risk. The course of Ms. Page's was unremarkable until 01/05/19, at which point there was no longer any sonographic evidence of movement or heartbeat. By ultrasound, Barry Pgae had growth parameter measurements consistent with 20 weeks' gestational age; other findings included breech presentation, oligohydramnios, and posterior placentation. Diagnostic laboratory studies performed (including a complete blood count, drug screening, infectious serologic studies, and coagulation panel) and were reportedly normal. Following induction of labor, Ms. Page delivered Barry Page (Clement Wheelre) and the placenta vaginally at 4:43 a.m. on 01/06/19. Permission to perform an unrestricted post-mortem examination was obtained from the decedent's mother, and the body was transported to [facility] Department of Pathology. An autopsy was begun on 01/10/19. Cytogenetic analysis of placental tissue was performed by [facility] ([address] [place] [address], ) and showed a normal female karyotype (46,XX); additionally, whole genome chromosome SNP microarray (Reveal) analysis was normal. For additional details, see [facility] report on specimen [id number] ([facility] Specimen Number [id number]). 0 7:10 PM RECRUITING MANAGER [facility] PATHOLOGY LAB EXTERNAL EXAMINATION Normal expected (NE) values represent means or means +/- one standard deviation for stillborn at 20 weeks' gestation. Development: Extreme prematurity Nourishment: Thin Weight: 186 g NE: 313 g +/- 139 g [place]-Heel Length: 25 cm NE: 24.9 +/- 2.3 g [place]-Rump Length: 17 cm NE: 18 cm +/- 2cm Head Circumference: 15.3 cm Chest Circumference: 12 cm Abdominal Circumference: 13.2 cm Foot Length: 2.6 cm Palpebral Fissure Length: 2.7 cm Intercanthal Distance: 2.7 cm Rigor Mortis: Absent Livor Mortis: Absent Cyanosis: No Jaundice: No Facies: Slightly upslanting palpebral fissures Nasal Passages: Patent Ears (shape): Normal Ext. Auditory Canals: Patent Sclerae (appearance): Cloudy, crum Pupils (size and equality): Unable to assess Irides: Crum Fontanelles: Collapsed skull, overlapping cranial suture; anterior fontanelle 1 x 1 cm Lips: Unremarkable Teeth: None Gums: Unremarkable Tongue: Unremarkable Palate: Intact Hair: No hair on the head NECK: Slightly thick Nodes: None palpable Trachea: Midline Thyroid: Not palpable THORAX: Symmetry: Symmetrical CCJ: No beading Breasts: Flat ABDOMEN: Fluid: No fluid wave Organs: Liver palpable, 1.5 cm below right costal Umbilicus: 5.2 cm in length x 0.4 cm in diameter segment of red umbilical cord; 3 x 2 mm tear 1 cm from insertion site; 2 vessels Anus: Patent GENITALIA: Prominent clitoris Labia: Unremarkable SKELETON: Unremarkable EXTREMITIES: External Castaneda: Thin, translucent skin; 2 x 1 cm skin sampling site on back Needle Puncture Castaneda: None 0 7:10 PM RECRUITING MANAGER [facility] INTERNAL EXAMINATION Normal expected (NE) values represent means or means +/- one standard deviation for stillborn at 20 weeks' gestation. CAVITIES: Primary Incision: Y-shaped Panniculus Adiposus: 1 mm Muscle: Unremarkable PERITONEAL CAVITY: Fluid: Minimal, serous Adhesions: None Surfaces: Smooth and glistening with no focal lesions Situs: Solitus Diaphragm: Intact Spleen: In left upper quadrant Urinary Bladder: ascends 1 cm above pubis Stomach: Non-distended Vermiform Appendix: In right lower quadrant Mesenteric Root: Normal in attachment and radius PLEURAL CAVITIES: Right: Fluid: Minimal, serous Adhesions: None Surfaces: Smooth and glistening with no focal lesions Left: Fluid: Minimal,serous Adhesions: None Surfaces: Smooth and glistening withno focal lesions MEDIASTINUM: Thymus: Curtiss-multani Weight: 0.27 g NE: 0.4 g +/- 0.3 g Veins: Unremarkable Arteries: Unremarkable Lymph Nodes: None enlarged PERICARDIUM: Fluid: Minimal, serous Surfaces: Smooth and glistening with no focal lesions Adhesions: None NECK ORGANS: Tongue: Unremarkable Larynx: Unremarkable Trachea: Unremarkable Vocal Cords: Unremarkable Thyroid: Bilobed, otherwise unremarkable LUNGS: Combined Weight: 5.95 g NE: 7.1 g +/- 3 g Pleura: Smooth and glistening with no focal lesions Color: Curtiss Consistency: Rubbery Crepitus: Absent Bronchi: Patent Vessels: Patent HEART Weight: 1.47 g NE: 2.4 +/- 1 g Tricuspid Valve: 1 cm Pulmonic Valve: 0.7 cm Mitral Valve: 0.9 cm Aortic Valve: 0.7 cm Wall Thickness Left Ventricle: 2 mm Right Ventricle: 1 mm Ductus Arteriosus: Patent Foramen Ovale: Probe-patent, valve-competent Endocardium: Soft Myocardium: Soft Epicardium: Soft Valves: Normal Pulmonary Artery: Patent Pulmonary Veins: Patent Coronary Arteries: Patent Coronary Sinus: Patent Aorta: Patent Main Branches: Patent ALIMENTARY TRACT: Pharynx: Unremarkable Esophagus: Unremarkable Stomach: Unremarkable Ampulla of Vater: Unable to assess due to maceration Small Intestine: Contains dark green soft material, otherwise unremarkable Vermiform Appendix: Unremarkable Large Intestine: Contains dark green meconium, otherwise unremarkable Mesentery: Unremarkable LIVER: Extensive autolysis Weight: 4.61 g NE: 17 g +/- 9 g Ductus Venosus: Patent Portal Veins: Patent Hepatic Veins: Patent GALLBLADDER AND BILE DUCTS: Not identified due to extensive autolysis/macerat ion PANCREAS: Weight: 0.13 g NE: 0.5 +/- 0.1 g Color: Red Size: Normal Consistency: Soft ADRENAL GLANDS: Weight: 0.77 g NE: 1.3 g +/- 0.6 g Color: Curtiss-orange Shape: Pyramidal Consistency: Soft Cut Surfaces: Unremarkable KIDNEYS: Combined Weight: 0.98 g NE: 2.7 g +/- 2.9 g Capsule: Smooth Cortex: Red, no differentiation between cortex and medulla Medulla: Red Pelvis: Nondilatated Renal Arteries: Patent Renal Veins: Patent Ureters: Patent URINARY BLADDER: Contents: Empty Wall: Not thickened Mucosa: Smooth Orifices: Patent INTERNAL GENITALIA: Female: Vagina: Unremarkable Uterus: Unremarkable Tubes: Unremarkable Ovaries: Unremarkable SPLEEN: Weight: 0.12 g NE: 0.3 g +/- 1 g Color: Red Shape: Lenticular Consistency: Soft Splenic Artery: Patent Splenic Vein: Patent LYMPH NODES: Mediastinal: Not enlarged Mesenteric: Not enlarged VENA CAVA: Clots/Thrombi/Air : None SKELETON: Ribs: Unremarkable Vertebra: Unremarkable Iliac Bones: Unremarkable Sternum: Unremarkable SKULL: Primary Incision: Uouqhzw-vx-ydtjnd d Symmetry: Symmetrical Sutures: Overlapping Fontanelles: Anterior open sunken 1 x 1 cm Epidural Space: Absent Subdural Space: No blood or exudate Subarachnoid Space: No blood or exudate Brain Weight: 26 g (extensive liquefaction) NE: 41 +/- 26 g COMMENTS: An дмитрий-posterior radiograph (skeletal survey) was obtained prior to dissection. Digital photographs were obtained prior to dissection. SLIDE SANTIAGO A1: brain A2: spleen / thymus / pancreas A3: adrenals A4: liver A5: larynx / trachea / thyroid / skeletal muscle, psoas A6: aorta / mesentery / skeletal muscle, diaphragm A7: ovaries / uterus A8: intestine A9: kidneys / urinary bladder A10: esophagus / stomach A11: lungs A12: heart, right & left ventricular ritter A13: bone, vertebra and rib PLACENTAL EXAMINATION [based on gross examination performed at [facility] as case [id number]] Received fresh is a fragmented ovoid placenta with attached membranes and umbilical cord. The placental disc fragments measure 8 x 7 x 3 cm in aggregate with aggregate mass of 48 g (NE, 112 g). The umbilical cord measures 19.5 cm in length with a diameter of 0.7 cm, inserts 1 cm from the nearest margin, and (on sectioning) contains two vessels. The membranes are multani-pink, semi-translucent, and show 30% circummarginate attachment and 70% marginal attachment. Approximately 30% of the maternal surface of the placental disc fragments have adherent clotted blood. Sectioning of the placental disc fragments shows uniform spongy dark-red parenchyma. Additionally present in the specimen container are detached fragments of clotted blood measuring 5 x 5 x 1 cm in aggregate. A portion of placental disc is collected for cytogenetic analysis. Management And Budget Analyst sections are submitted as B1 through B5. 0 7:10 PM [facility] PATH[facility] Microscopic Description 13 H&E. CARDIOVASCULAR SYSTEM: Sections of the aorta show passive congestion (of the vasa vasorum) and mild autolysis. Sections of the right and left ventricular ritter show moderate autolysis (consistent with kvdsc-jh-kpdgmsa y interval of 1-2 days). RESPIRATORY SYSTEM: Sections of the larynx and trachea show passive congestion and mild autolysis (consistent with imbwx-us-pokrnib y interval of less than 7 days). Sections of the lungs show passive congestion, mild autolysis (consistent with slwnz-iq-cyfqhkz y interval of less than 4 days), and canalicular phase of development (appropriate for gestational age). THYMUS: Sections of thymus show mild autolysis, preservation of the corticmedullary junction, and foci of extramedullary hematopoiesis. THYROID: Sections of thyroid show passive congestion and mild autolysis. ALIMENTARY CANAL and MESENTERY: Sections of the alimentary canal show varying degrees (mild to moderate) of mucosal autolysis (consistent with zxnyy-gy-enprymh y interval of less than 1 week); ganglia are present in submucosal and myenteric plexuses throughout the gut. Sections of mesentery show passive congestion and mild autolysis. HEPATOBILIARY SYSTEM: A section of liver shows mild autolysis (consistent with omxjq-ia-tnrvsmn y interval of more than 1 day and less than 4 days) and widespread extramedullary hematopoiesis. PANCREAS: Sections of the pancreas show moderate autolysis. ADRENALS: Sections of the adrenals show mild autolysis (consistent with gwlet-np-pyucepk y interval of less than 7 days), preservation of the cortex (appropriate for gestational age), and foci of extramedullary hematopoiesis. GENITOURINARY SYSTEM: Sections of uterus and ovaries show mild autolysis. Sections of the kidneys show preservation of the nephrogenic zone (appropriate for gestational age) and mild autolysis (consistent with kkifh-bg-xjtkgyw y interval of more than 4 hours and less than 4 weeks). Sections of urinary bladder show moderate mucosal autolysis. SPLEEN: Sections of the spleen show moderate autolysis and foci of extramedullary hematopoiesis. LYMPH NODES: Sections of mesenteric lymph nodes show mild autolysis. SKELETAL MUSCLE: Sections of diaphragm and psoas show passive congestion and mild autolysis. BONE: Sections of vertebra and rib show ossifying cartilage with moderate medullary autolysis and trilineage hematopoiesis. CENTRAL NERVOUS SYSTEM: Sections of the brain show severe autolysis obscuring the architecture. PLACENTA and UMBILICAL CORD (5 H&E, [facility] case [id number]): Sections of the membranes are unremarkable. Sections of the chorionic plate show intravascular thrombus. Sections of the umbilical cord confirm the presence of two vessels: a single umbilical artery and a single umbilical vein. Sections of the placental disc show a pattern of chorionic villi consistent with the reported gestational age, occasional foci of dystrophic calcification, nucleated red blood cells in intravillous vascular lumina, chorionic villi with intravascular karyorrhexis (consistent with wqtvd-bb-rgnmsae y interval of more than 6 hours), foci of villous stromal-vascular karyorrhexis, and retroplacental hematoma. 0 7:10 PM RECRUITING MANAGER [facility] PATHOLOGY LAB CLINICOPATHOLOGIC CORRELATION Autopsy findings included a macerated female fetus with growth parameters appropriate for gestational age and slightly abnormal facies (slightly upslanting palpebral fissures). Based on criteria developed by Genescruz et al (1), the interval between demise and delivery is estimated as 1-2 days. Examination of the placenta ([facility] case [id number]) showed evidence of vascular malperfusion (chorionic plate thrombosis and villous stromal-vascular karyorrhexis), suggesting the possibility of blood flow obstruction; however, such changes may also be attributable to involutional or degenerative changes following demise (2). Cytogenetic analysis of placental tissue (performed by [facility]) showed a normal female karyotype (46,XX) with normal whole genome chromosome SNP microarray analysis (for additional details, see [facility] report on specimen [id number]). References 1. Andrews TYLER, Clarence MA, Naga LITTLE. Estimating the time of in stillborn fetuses: I. Histologic evaluation of organs; an autopsy study of 129 stillborns. Obstet Gynecol 80(4):575-584, 1991. 2. Alisson TY, Yehuda EE, Zhen I, et al. Sampling and definitions of placental lesions: [place] [employer] consensus statement. Arch Pathol Lab Med 140:698-713, 2016. 0 7:10 PM RECRUITING MANAGER [facility] Date of 01/06/19 0 7:10 PM RECRUITING MANAGER [facility] Date of Autopsy 01/10/19 0 7:10 PM RECRUITING MANAGER [facility] Client Frandy 0 7:10 PM RECRUITING MANAGER [facility] Embedded Images 0 7:10 PM RECRUITING MANAGER [facility] Pathology/Cytolo gy AUTOPSY EXAMINATION / Unknown 01/10/2019 10:42 AM RECRUITING MANAGER 01/10/2019 10:42 AM RECRUITING MANAGER Narrative [facility] - 04/07/2019 7:10 PM RECRUITING MANAGER A previously reported component [Component Name] is no longer reported. Melissa Brown MD LAB - PATHOLOGY/CYTO LOGY ORDERABLES Performing Organization Address City/State/[facility] Co de Phone Number [facility] PATHOLOGY LAB [address] [phone] documented in this encounter Visit Diagnoses Diagnosis Illness, unspecified documented in this encounter Care Teams Patient Accounts Coordinator Relationship Specialty Start Date End Date Peyton Vera MD [address] [place] [id number] PCP - General 01/04/19 Peyton Vera MD [address] [place] [address] [phone] Family Medicine 01/04/19 documented as of this encounter
--- OUTSIDE RECORDS SUMMARY | 2024-03-31 09:56 | XMS_ITS | Referral Summary ---
Author Organization [facility] Address [address] [place] [address] Care Team Providers Care Road Freight Brake Coupler Name Role Phone Daya Hoskins NP Primary Care Provider Encounters Date Type Department Care Team Description 03/16/2024 Telephone [facility] Care Organization [address] [place] [id number] Iman Kidd MA Unsuccessful Phone Call 1 (AWV SCHEDULING) from Last 3 Months Allergies No known active allergies Social History Tobacco Use Types Packs/Day Years Used Date Smoking Tobacco: Never Assessed Personal Safety Answer Date Recorded Getting School Help Needed Denies 02/14 Comments Unknown Sex and Gender Information Value Date Recorded Sex Assigned at Not on file Legal Sex Female 7:27 PM LEAD GENERATION SPECIALIST Gender Identity Not on file Sexual Orientation Not on file Last Filed Vital Signs Vital Sign Reading Time Taken Comments Blood Pressure 116/84 04/23/2022 4:44 PM LEAD GENERATION SPECIALIST Pulse 64 04/23/2022 4:44 PM LEAD GENERATION SPECIALIST Temperature 36.6 C (97.8 F) 04/23/2022 12:59 PM LEAD GENERATION SPECIALIST Respiratory Rate 18 04/23/2022 4:44 PM LEAD GENERATION SPECIALIST Oxygen Saturation 99% 04/23/2022 4:44 PM LEAD GENERATION SPECIALIST Inhaled Oxygen Concentration - - Weight 57 kg (125 lb 10.6 oz) 04/23/2022 12:59 P M LEAD GENERATION SPECIALIST Height 165.1 cm (5' 5 ) 04/23/2022 12:59 PM LEAD GENERATION SPECIALIST Body Mass Index 20.91 04/23/2022 12:59 PM LEAD GENERATION SPECIALIST Plan of Treatment Not on file Insurance [facility] Care Teams Road Freight Brake Coupler Relationship Specialty Start Date End Date Daya Hoskins, MECHANICAL DEVELOPER [place] [address] [address] PCP - General 12/27/18
--- OUTSIDE RECORDS SUMMARY | 2024-03-31 09:56 | XMS_ITS | Clinical Summary ---
Author Organization [facility] Address [address] [place] [address] Care Team Providers Care Nursery Teacher Name Role Phone Unavailable Primary Care Provider Unavailabl e Social History Tobacco Use Types Packs/Day Years Used Date Smoking Tobacco: Never Assessed Comments Unknown Sex and Gender Information Value Date Recorded Sex Assigned at Not on file Legal Sex Female 8:32 PM CDT Gender Identity Not on file Sexual Orientation Not on file Plan of Treatment Health Maintenance Due Date Last Done Comments Cervical Cancer Screening Pa p Smear (Age 30 to 64) Every 3 Years 1993 Annual Physical 1996 Hepatitis C 10/05/2011 DTaP, Tdap and Td Vaccines ( 1 - Tdap) 2012 Hepatitis B Vaccines (1 of 3 - 19+ 3-dose series) 2012 Cervical Cancer Screening Pa p with HPV Testing (Age 30 to 64) Every 5 Years 10/05/2023 Cervical Cancer Screening with HPV 10/05/2023 COVID-19 Vaccine (2023-2 5 season) 2023 Influenza Adult (#1) 2023 HPV Vaccines Aged Out No longer eligi ble based on patient's age to complete this topic Meningococcal B Vaccine Aged Out No l onger eligible based on patient's age to complete this topic Meningococcal Vaccine Aged Out No farnaz anam eligible based on patient's age to complete this topic Pneumococcal Vaccine: Pediat rics (0 to 5 Years) and At-Risk Patients (6 to 64 Years) Aged Out No longer eligible b ased on patient's age to complete this topic RSV Immunizations Under 20 Months Aged Out No longer eligible based on patient's age to complete this topic
--- OUTSIDE RECORDS SUMMARY | 2024-03-31 09:56 | XMS_ITS | Patient Health Summary ---
Author Organization [facility] [employer] Address [address] [place] [address] Care Team Providers Care Energy Infrastructure Engineer Name Role Phone Peyton Vera MD Primary Care Provider [phone] Peyton Vera MD Unavailable [phone] Note from [facility],non-owned Affiliates and Associated Physician Practices is amultiple site organization consisting of ambulatory clinics and hospital sitesin [place], [place], [place] and [place]. This disclosure is being madepursuant to the Care Everywhere program and may not contain all information available regarding this patient. Last updated 17.[facility] Allergies No known active allergies Medications * Be aware that medications may not be up to date on this document. Alwaysverify current medications with the patient. * Vit-Fe Fumarate-FA ( VITAMIN) 28-0.8 MG tablet Take 1 tablet by mouth once daily * vitamin D3 (CHOLECALCIFEROL) 25 MCG (1000 UNITS) tablet Take by mouth once daily Active Problems Problem Noted Date Diagnosed Date Vaginal bleeding [...] Average Number of Drinks Not on file 11/05/2 019 Frequency of Binge Drinking Not on file 06/2018 Sex and Gender Information Value Date Recorded Sex Assigned at Not on file Gender Identity Not on file Sexual Orientation Not on file Last Filed Vital Signs Vital Sign Reading Time Taken Comments Blood Pressure 108/59 12/28/2018 5:05 PM CLINICAL ENGINEERING MANAGER Pulse - - Temperature 36.8 C (98.3 F) 12/28/2018 2:44 PM CLINICAL ENGINEERING MANAGER Respiratory Rate 18 12/28/2018 2:44 PM CLINICAL ENGINEERING MANAGER Oxygen Saturation 99% 12/28/2018 3:01 PM CLINICAL ENGINEERING MANAGER Inhaled Oxygen Concentration - - Weight 54.9 kg (121 lb) 12/28/2018 2:50 PM CLINICAL ENGINEERING MANAGER Height 165.1 cm (5' 5 ) 12/28/2018 2:50 PM CLINICAL ENGINEERING MANAGER Body Mass Index 20.14 12/28/2018 2:50 PM CLINICAL ENGINEERING MANAGER Procedures * IMAGING/RADIOLOGY/XRAY RESULTS ORDER(Performed 04/08/2019) * AUTOPSY ([facility])(Performed 01/10/2019) Performed for Illness, unspecified * SONOGRAM - COMPLETE(Performed 12/31/2018) * ANEUPLOIDY SCREENING(Performed 12/31/2018) Results * IMAGING RADIOLOGY XRAY RESULTS ORDER (04/08/2019 12:21 PM CLINICAL ENGINEERING MANAGER) Anatomical Region Laterality Modality Other Narrative 04/08/2019 12:21 PM CLINICAL ENGINEERING MANAGER Ordered by an unspecified provider. Scanned Document IMAGING * AUTOPSY ([facility]) (01/10/2019 10:42 AM CLINICAL ENGINEERING MANAGER) Case Report Autopsy Report Case: [id number] Authorizing Provider: Melissa Brown MD Ordering Provider: Melissa Brown MD Ordering Location: [facility] Care Pathology Lab Pathologist: Pritesh Benjamin MD Specimen: Autopsy 0 7:10 PM CLINICAL ENGINEERING MANAGER [facility] FINAL ANATOMIC DIAGNOSES I. Intrauterine [...] cord ) II. 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 Normal whole genome chromosome SNP microarray analysis The interpretation of this case is performed by [facility] Pathology at [facility], [address] [place] [address]. 0 7:10 PM [facility] Clinical History Barry Arzate, also known as Clement Wheeler, was stillborn to Bri [place] on 01/06/19 at 20 weeks' gestation. Delivery occurred at [facility] ([address] [place] [address]). Ms. Arzate, a 23-year-old woman who had previously delivered a living infant at term gestation, had a smith intrauterine [...] reportedly low risk. The course of Ms. Arzate's was unremarkable until 01/05/19, at which point there was no longer any sonographic evidence of movement or heartbeat. By ultrasound, Barry Arzate had growth parameter measurements consistent with 20 weeks' gestational age; other findings included breech presentation, oligohydramnios, and posterior placentation. Diagnostic laboratory studies performed (including a complete blood count, drug screening, infectious serologic studies, and coagulation panel) and were reportedly normal. Following induction of labor, Ms. Arzate delivered Baby Jose Arzate (Clement Wheeler) and the placenta vaginally at 4:43 a.m. on 01/06/19. Permission to perform an unrestricted post-mortem examination was obtained from the decedent's mother, and the body was transported to [facility] Department of Pathology. An autopsy was begun on 01/10/19. Cytogenetic analysis of placental tissue was performed by [employer] [facility] ([address] [place] [address], ) and showed a normal female karyotype (46,XX); additionally, whole genome chromosome SNP microarray (Re[facility]) analysis was normal. For additional details, see [employer] report on specimen [id number] (LS Specimen Number [id number]). 0 7:10 PM [facility] EXTERNAL EXAMINATION Normal expected (NE) values represent means or means +/- one standard deviation for stillborn at 20 weeks' gestation. Development: Extreme prematurity Nourishment: Thin Weight: 186 g NE: 313 g +/- 139 g [place]Heel Length: 25 cm NE: 24.9 +/- 2.3 g [place]-Rump Length: 17 cm NE: 18 cm +/- [...] Needle Puncture Castaneda: None 0 7:10 PM CLINICAL ENGINEERING MANAGER [facility] INTERNAL EXAMINATION Normal expected (NE) [...] and glistening withno focal lesions MEDIASTINUM: Thymus: Vina-multani Weight: 0.27 g NE: 0.4 g +/- [...] and glistening with no focal lesions Color: Vina Consistency: Rubbery Crepitus: Absent Bronchi: Patent Vessels: [...] NE: 1.3 g +/- 0.6 g Color: Vina-orange Shape: Pyramidal Consistency: Soft Cut Surfaces: Unremarkable [...] Bones: Unremarkable Sternum: Unremarkable SKULL: Primary Incision: Dblcztb-jc-akaztd d Symmetry: Symmetrical Sutures: Overlapping Fontanelles: Anterior [...] EXAMINATION [based on gross examination performed at [facility] as case [id number]] Received fresh is a fragmented ovoid placenta [...] placental disc is collected for cytogenetic analysis. Training Development Director sections are submitted as B1 through B5. 0 7:10 PM [facility] Microscopic Description 13 H&E. CARDIOVASCULAR SYSTEM: Sections of the aorta show passive congestion (of the vasa vasorum) and mild autolysis. Sections of the right and left ventricular ritter show moderate autolysis (consistent with fkzrl-wk-qxruhuy y interval of 1-2 days). RESPIRATORY SYSTEM: Sections of the larynx and trachea show passive congestion and mild autolysis (consistent with vihyu-yz-illjsdd y interval of less than 7 days). Sections of the lungs show passive congestion, mild autolysis (consistent with bayar-rf-yblygxu y interval of less than 4 days), and canalicular phase of development (appropriate for gestational age). THYMUS: Sections of thymus show mild autolysis, preservation of the corticmedullary junction, and foci of extramedullary hematopoiesis. THYROID: Sections of thyroid show passive congestion and mild autolysis. ALIMENTARY CANAL and MESENTERY: Sections of the alimentary canal show varying degrees (mild to moderate) of mucosal autolysis (consistent with ogvla-rj-lowvsdh y interval of less than 1 week); ganglia are present in submucosal and myenteric plexuses throughout the gut. Sections of mesentery show passive congestion and mild autolysis. HEPATOBILIARY SYSTEM: A section of liver shows mild autolysis (consistent with chlxf-ei-xtnsclk y interval of more than 1 day and less than 4 days) and widespread extramedullary hematopoiesis. PANCREAS: Sections of the pancreas show moderate autolysis. ADRENALS: Sections of the adrenals show mild autolysis (consistent with kefuc-qt-bpwaxcq y interval of less than 7 days), preservation of the cortex (appropriate for gestational age), and foci of extramedullary hematopoiesis. GENITOURINARY SYSTEM: Sections of uterus and ovaries show mild autolysis. Sections of the kidneys show preservation of the nephrogenic zone (appropriate for gestational age) and mild autolysis (consistent with tbxcg-uu-csrwivs y interval of more than 4 hours [...] architecture. PLACENTA and UMBILICAL CORD (5 H&E, [facility] case [id number]): Sections of the membranes are unremarkable. Sections [...] chorionic villi with intravascular karyorrhexis (consistent with dcbtm-jt-dtqassy y interval of more than 6 hours), foci of villous stromal-vascular karyorrhexis, and retroplacental hematoma. 0 7:10 PM CLINICAL ENGINEERING MANAGER [facility] PATHOLOGY LAB CLINICOPATHOLOGIC CORRELATION Autopsy findings included a macerated female fetus with growth parameters appropriate for gestational age and slightly abnormal facies (slightly upslanting palpebral fissures). Based on criteria developed by Osvaldot et al (1), the interval between demise and delivery is estimated as 1-2 days. Examination of the placenta ([facility] case [id number]) showed evidence of vascular malperfusion (chorionic plate thrombosis and villous stromal-vascular karyorrhexis), suggesting the possibility of blood flow obstruction; however, such changes may also be attributable to involutional or degenerative changes following demise (2). Cytogenetic analysis of placental tissue (performed by [employer]) showed a normal female karyotype (46,XX) with normal whole genome chromosome SNP microarray analysis (for additional details, see [employer] report on specimen [id number]). References 1. Andrews TYLER, Clarence MA, Naga MF. Estimating the time of in stillborn fetuses: I. Histologic evaluation of organs; an autopsy study of 129 stillborns. Obstet Gynecol 80(4):575-584, 1991. 2. Alisson TY, Yehuda EE, Zhen I, et al. Sampling and definitions of placental lesions: [employer] consensus statement. Arch Pathol Lab Med 140:698-713, 2016. 0 7:10 PM CLINICAL ENGINEERING MANAGER [facility] Date of 01/06/19 0 7:10 PM CLINICAL ENGINEERING MANAGER [facility] Date of Autopsy 01/10/19 0 7:10 PM CLINICAL ENGINEERING MANAGER [facility] Client Frandy 0 7:10 PM CLINICAL ENGINEERING MANAGER [facility] PATHOLOGY LAB Embedded Images 0 7:10 PM CLINICAL ENGINEERING MANAGER [facility] PATH[facility] LAB Pathology/Cytolo gy AUTOPSY EXAMINATION / Unknown 01/10/2019 10:42 AM CLINICAL ENGINEERING MANAGER 01/10/2019 10:42 AM CLINICAL ENGINEERING MANAGER Narrative [facility] PATHOLOGY LAB - 04/07/2019 7:10 PM CLINICAL ENGINEERING MANAGER A previously reported component [Component Name] is no longer reported. Melissa Brown MD LAB - PATHOLOGY/CYTO LOGY ORDERABLES [facility] PATH[facility]Y LAB [address] [phone] * SONOGRAM - COMPLETE (12/31/2018 2:22 PM CLINICAL ENGINEERING MANAGER) Anatomical Region Laterality Modality Other 12/31/2018 2:22 PM CLINICAL ENGINEERING MANAGER Narrative 12/31/2018 4:37 PM CLINICAL ENGINEERING MANAGER [facility] [place] PHONE: FAX: Pat. Name: DANITA ARZATE Pat. No: [id number] Study Date: 12/31/2018 2:22pm , Age: 08 1995, 23 Pregnancies: 3, Para 1, Ab 1 Height: 65 in Weight: 120 lb LMP: Unknown GA by US: 18w4d TITUS: 05/30/2019 GA Selected: 19w2d (From Known E) TITUS: 05/25/2019 Referring MD: Perri Cheng MD Automotive Metalsmith: Jen Abdi RDMS CPT4: 45540,19647 BMI: 19.97 Hist/Ind: Anatomy Screen MEASUREMENTS & AGE GROWTH EVALUATION Measurement GA Range Srce %for GA Ratios ----- ---- ------- BPD 3.9 cm 17w6d (83k0h-24t1x) Hadl BPD 5% FL/BPD 0.76 HC 15.4 cm 18w3d (54h8c-80w4t) Hadl HC 8% FL/AC 0.22 AC 13.4 cm 18w6d (43i2m-72a2u) Hadl AC 32% HC/AC 1.15 (1.06 - 1.25) FL 3.0 cm 19w1d (97g9p-95g4n) Hadl FL 39% CI 0.70 (0.70 - 0.86* HL 2.7 cm 18w4d (76u1f-63y8i) Arjun HL 38% Cere 1.9 cm 18w4d (85a9e-97o9x) Hill Cere33% GA for sonogram 18w4d (95j5k-63e4u) Weight Estimate: based on (HL,BPD,HC,AC,FL,Cere) Avg Weight: 262 gm (223-301gm) Hadloc : 0lbs, 9oz Normal: 290 gm (217-362gm) Hadloc Wt% 24% for 19w2d Cervix: Length: 4.3 cm Approach: transvaginal Funneling: not present Heart Rate: 151 bpm Amniotic Fluid Index: 02.9cm (Deepest Pocket) EVAL, PLACENTA Presentation: transverse Placenta: posterior Heart Rate: 151 bpm Amniotic Fluid Volume: normal Anatomy!Normal!Abnormal!Suboptimal!Prev. Seen!Comments Cranium ! x ! ! ! ! Mdl (CSP/Thal! x ! ! ! ! Ventricles ! x ! ! ! ! Choroid Plexu! x ! ! ! ! Cerebellum ! x ! ! ! ! Cisterna M. ! x ! ! ! ! Nuchal Fold ! x ! ! ! ! Profile ! ! ! x ! ! Nasal Bone ! ! ! x ! ! Lip ! ! ! x ! ! Spine ! ! ! x ! ! Lungs ! ! ! x ! ! 4 Chamber Hea! ! ! x ! ! LVOT ! ! ! x ! ! RVOT ! ! ! x ! ! 3 Vessel View! ! ! x ! ! Cross-over ! ! ! x ! ! Ductal Arch ! ! ! x ! ! Aortic Arch ! x ! ! ! ! Caval View ! x ! ! ! ! Situs ! ! ! x ! ! Diaphragm ! ! ! x ! ! Stomach ! x ! ! ! ! Bowel ! ! ! x ! ! Kidneys ! ! ! x ! ! Bladder ! x ! ! ! ! 3 Vessel Cord! ! ! x ! ! Cord In! ! ! x ! ! Upper Extremi! ! ! x ! ! Hands ! ! ! x ! ! Lower Extreme! ! ! x ! ! Feet ! ! ! x ! ! External Arcelia! ! ! x ! ! Placental Cor! x ! ! ! ! CLINICAL SUMMARY Study Number: [id number] A single fetus is seen in transverse presentation. The measurements today are consistent with appropriate size for the TITUS provided. The TITUS is based on a prior outside ultrasound (unconfirmed). The amniotic fluid volume is subjectly decreased, although with a 2x2 cm pocket identified. The anatomy was limited by position. IMPRESSION: Single, live intrauterine at 19w2d Appropriate size for reported TITUS Amniotic fluid volume: DVP > 2cm but subjectively appears low No major malformations are seen today within the limits of ultrasound Incomplete fusion of chorion and amnion Incomplete anatomic survey due to position (see table) Reassuring TVU cervical length COUNSELING (by Dr. Ernst, [facility] Fellow) The findings of the ultrasound were reviewed with the patient and her partner. She notes a history of multiple episodes of vaginal bleeding with this , most recently 3 days ago. Discussed that unfused membranes at this gestational age can be predictive of aneuploidy. Diagnostic and screening methods for aneuploidy were discussed, and given the problems that unfused membranes pose for amniocentesis, NIPT was recommended at this time. She had NIPT drawn today. RECOMMEND: 1) Follow up ultrasound in 2 weeks to complete the anatomic, assess amniotic fluid volume and assess for amnion-chorion fusion Thank you for allowing us they opportunity to care for your patient. Brando Reid MD <Electronic Signature> 12/31/2018 04:37pm Perri Cheng MD [facility] ORDERABLES * PANORAMA TEST (12/31/2018) Trisomy 21 Low Risk Trisomy 18 Low Risk Trisomy 13 Low Risk Monosomy X Low Risk Triploidy/Dawn shing Twin NIPT Low Risk Blood BLOOD SPECIMEN / Unknown 12/31/2018 Narrative Kera Cordova, PhD - 01/10/2019 Predicted Sex: female Fraction: 5.2% Panorama - Nadja Screen Hard copy results are scanned under Media. Bereket Reid MD LAB - CHEMISTR Y ORDERABLES Care Teams Energy Infrastructure Engineer Relationship Specialty Start Date End Date Peyton Vera MD [address] [facility] [address] [place] [address] PCP - General 01/04/19 Peyton Vera MD [address] [facility] [address] [place] [phone] Family Medicine 01/04/19
== END 2024-03-31 09:43 | disposition home or self-care (01) ==
PROVIDERS: Visit Provider Obstetrics & Gynecology Gynecology
DX: Z36.9 Encounter for antenatal screening, unspecified (principal); Z3A.00 Weeks of gestation of pregnancy not specified
CPT/HCPCS: 76801

== ENCOUNTER 2024-06-09 10:12 | Observation (INO) | payer OTHER, SELFPAY ==
[2024-06-09] VITALS (8 sets, daily range): BP systolic 102–112; BP diastolic 49–58; PULSE 67–82; TEMP 36.9; BMI 22.1
--- NOTE | 2024-06-09 10:12 | OBADM ---
This patient, Danita Page, admitted to the OB room OB Post 112 for observation. Patient/family oriented to hospital policies and general routines including ID bracelet, bed and alarms, visiting hours, pain management, procedures, bathroom and other care routines, personal items, smoking policy, room service/diet, and visiting hours. Patient/Family are encouraged to report perceived risks to care and to ask questions if they do not understand what they are told or what they should do.
--- OUTSIDE RECORDS SUMMARY | 2024-06-09 11:04 | XMS_ITS | Referral Summary ---
Author Organization [facility] Address [address] [place] [address] Care Team Providers Care Rn Hemodialysis Name Role Phone Daya Hoskins NP Primary Care Provider Encounters Date Type Department Care Team Description 03/16/2024 Telephone [facility] Care Organization [address] [place] [id number] Iman Kidd MA Unsuccessful Phone Call 1 (AWV SCHEDULING) from Last 3 Months Allergies No known active allergies Social History Tobacco Use Types Packs/Day Years Used Date Smoking Tobacco: Never Assessed Personal Safety Answer Date Recorded Getting School Help Needed Denies 02/14 Comments Unknown Sex and Gender Information Value Date Recorded Sex Assigned at Not on file Legal Sex Female 7:27 PM ROUTE RELIEF DRIVER Gender Identity Not on file Sexual Orientation Not on file Last Filed Vital Signs Vital Sign Reading Time Taken Comments Blood Pressure 116/84 04/23/2022 4:44 PM ROUTE RELIEF DRIVER Pulse 64 04/23/2022 4:44 PM ROUTE RELIEF DRIVER Temperature 36.6 C (97.8 F) 04/23/2022 12:59 PM ROUTE RELIEF DRIVER Respiratory Rate 18 04/23/2022 4:44 PM ROUTE RELIEF DRIVER Oxygen Saturation 99% 04/23/2022 4:44 PM ROUTE RELIEF DRIVER Inhaled Oxygen Concentration - - Weight 57 kg (125 lb 10.6 oz) 04/23/2022 12:59 P M ROUTE RELIEF DRIVER Height 165.1 cm (5' 5 ) 04/23/2022 12:59 PM ROUTE RELIEF DRIVER Body Mass Index 20.91 04/23/2022 12:59 PM ROUTE RELIEF DRIVER Plan of Treatment Not on file Insurance [facility] Care Teams Rn Hemodialysis Relationship Specialty Start Date End Date Daya Hoskins, OCEANOGRAPHER PHYSICAL [address] [address] PCP - General 12/27/18
--- OUTSIDE RECORDS SUMMARY | 2024-06-09 11:04 | XMS_ITS | Encounter Summary ---
Author Organization [facility] Address [address] [place] [address] Care Team Providers Care Distance Education Director Name Role Phone Peyton Vera MD Primary Care Provider [phone] Peyton Vera MD Unavailable [phone] Encounter Details Date Type Department Care Team (Late st Contact Info) Description 01/10/2019 Lab Requisition [facility] Care Pathology Lab [address] [place] [address] Melissa Brown MD [address] [place] [address] Illness, unspecified Social History Tobacco Use Types [...] at Not on file Legal Sex Female 2:41 PM [employer] Gender Identity Not on file Sexual Orientation Not on file documented as of this encounter Functional Status * Is person deaf or have serious hearing difficulty? Answer Date of Assessment Author No 12/28/2018 5:06 PM Terese Fernandez, RN * Is person blind or have serious difficulty seeing? Answer Date of Assessment Author No 12/28/2018 5:06 PM Terese Fernandez, RN * Does person have serious difficulty walking/climbing stairs? Answer Date of Assessment Author No 12/28/2018 5:06 PM Terese Fernandez RN * Does person have difficulty dressing/bathing? Answer Date of Assessment Author No 12/28/2018 5:06 PM Terese Fernandez RN * Does person have difficulty doing errands alone? Answer Date of Assessment Author No 12/28/2018 5:06 PM Terese Fernandez RN documented as of this encounter Mental Status * Does person have difficulty concentrating/remembering/making decisions? Answer Entry Date Author No 12/28/2018 5:06 PM Tersee Fernandez RN documented in this encounter Plan of Treatment Not on file documented as of this encounter Procedures Procedure Name Priority Date/Time Associated Diagnosis Comments AUTOPSY (SLU) Routine 01/10/2019 10:42 AM [employer] Illness, unspecified documented in this encounter Results * AUTOPSY (SLU) (01/10/2019 10:42 AM [employer]) Case Report Autopsy Report Case: [id number] Authorizing Provider: Melissa Brown MD Ordering Provider: Melissa Brown MD Ordering Location: [facility] Care Pathology Lab Pathologist: Pritesh Benjamin MD Specimen: Autopsy 0 7:10 PM [employer] [facility] PATH[facility]Y LAB FINAL ANATOMIC DIAGNOSES I. [...] cord ) II. 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 Normal whole genome chromosome SNP microarray analysis The [facility] of [facility], [address] [place] [id number]. 0 7:10 PM [facility] Clinical History Barry Page, also known as Clement Wheeler, was stillborn to Bri Bixby on 01/06/19 at 20 weeks' gestation. Delivery occurred at [facility] ([address] [place] [address]). Ms. Page, a 23-year-old woman who had [...] of movement or heartbeat. By ultrasound, Barry Page had growth parameter measurements consistent with 20 weeks' gestational age; other findings included breech presentation, oligohydramnios, and posterior placentation. Diagnostic laboratory studies performed (including a complete blood count, drug screening, infectious serologic studies, and coagulation panel) and were reportedly normal. Following induction of labor, Ms. Page delivered Barry Page (Clement Wheeler) and the placenta vaginally at 4:43 a.m. on 01/06/19. Permission to perform an unrestricted post-mortem examination was obtained from the decedent's mother, and the body was transported to [facility] Department of Pathology. An autopsy was begun on 01/10/19. Cytogenetic analysis of placental tissue was performed by [facility] ([address] [place] [address], ) and showed a normal female karyotype (46,XX); additionally, whole genome chromosome SNP microarray (Reveal) analysis was normal. For additional details, see [facility] report on specimen [id number] ([facility] Specimen Number [id number]). 0 7:10 PM [employer] [facility] PATHOLOGY LAB EXTERNAL EXAMINATION Normal expected (NE) values represent means or means +/- one standard deviation for stillborn at 20 weeks' gestation. Development: Extreme prematurity Nourishment: Thin Weight: 186 g NE: 313 g +/- 139 g [place]-Heel Length: 25 cm NE: 24.9 +/- 2.3 g [place]-Rump Length: 17 cm NE: 18 cm +/- [...] Needle Puncture Castaneda: None 0 7:10 PM [employer] [facility] PATHOLOGY LAB INTERNAL EXAMINATION Normal expected (NE) [...] and glistening withno focal lesions MEDIASTINUM: Thymus: [place]-multani Weight: 0.27 g NE: 0.4 g +/- [...] and glistening with no focal lesions Color: [place] Consistency: Rubbery Crepitus: Absent Bronchi: Patent Vessels: [...] NE: 1.3 g +/- 0.6 g Color: [place]-orange Shape: Pyramidal Consistency: Soft Cut Surfaces: Unremarkable [...] Bones: Unremarkable Sternum: Unremarkable SKULL: Primary Incision: Mmncpme-kt-tvwfaq d Symmetry: Symmetrical Sutures: Overlapping Fontanelles: Anterior [...] EXAMINATION [based on gross examination performed at [facility] as case [id number]] Received fresh is a fragmented ovoid placenta [...] placental disc is collected for cytogenetic analysis. Laborer/Key Man sections are submitted as B1 through B5. 0 7:10 PM [facility] Microscopic Description 13 H&E. CARDIOVASCULAR SYSTEM: Sections of the aorta show passive congestion (of the vasa vasorum) and mild autolysis. Sections of the right and left ventricular ritter show moderate autolysis (consistent with mrvjw-ng-csvtpaz y interval of 1-2 days). RESPIRATORY SYSTEM: Sections of the larynx and trachea show passive congestion and mild autolysis (consistent with hdfme-ka-kllpmqh y interval of less than 7 days). Sections of the lungs show passive congestion, mild autolysis (consistent with wfgnc-ln-fffmixy y interval of less than 4 days), and canalicular phase of development (appropriate for gestational age). THYMUS: Sections of thymus show mild autolysis, preservation of the corticmedullary junction, and foci of extramedullary hematopoiesis. THYROID: Sections of thyroid show passive congestion and mild autolysis. ALIMENTARY CANAL and MESENTERY: Sections of the alimentary canal show varying degrees (mild to moderate) of mucosal autolysis (consistent with pagsi-tw-ddqmfwv y interval of less than 1 week); ganglia are present in submucosal and myenteric plexuses throughout the gut. Sections of mesentery show passive congestion and mild autolysis. HEPATOBILIARY SYSTEM: A section of liver shows mild autolysis (consistent with vwrzz-fk-dpxstjz y interval of more than 1 day and less than 4 days) and widespread extramedullary hematopoiesis. PANCREAS: Sections of the pancreas show moderate autolysis. ADRENALS: Sections of the adrenals show mild autolysis (consistent with utvvo-wv-anmjamn y interval of less than 7 days), preservation of the cortex (appropriate for gestational age), and foci of extramedullary hematopoiesis. GENITOURINARY SYSTEM: Sections of uterus and ovaries show mild autolysis. Sections of the kidneys show preservation of the nephrogenic zone (appropriate for gestational age) and mild autolysis (consistent with klgye-nt-jsfrtjv y interval of more than 4 hours [...] architecture. PLACENTA and UMBILICAL CORD (5 H&E, [facility] case [id number]): Sections of the membranes are unremarkable. Sections [...] chorionic villi with intravascular karyorrhexis (consistent with dxqtg-hf-wkmalka y interval of more than 6 hours), foci of villous stromal-vascular karyorrhexis, and retroplacental hematoma. 0 7:10 PM [employer] [facility] PATHOLOGY LAB CLINICOPATHOLOGIC CORRELATION Autopsy findings included a macerated female fetus with growth parameters appropriate for gestational age and slightly abnormal facies (slightly upslanting palpebral fissures). Based on criteria developed by Genest et al (1), the interval between demise and delivery is estimated as 1-2 days. Examination of the placenta ([facility] case [id number]) showed evidence of vascular malperfusion (chorionic plate thrombosis and villous stromal-vascular karyorrhexis), suggesting the possibility of blood flow obstruction; however, such changes may also be attributable to involutional or degenerative changes following demise (2). Cytogenetic analysis of placental tissue (performed by [facility]) showed a normal female karyotype (46,XX) with normal whole genome chromosome SNP microarray analysis (for additional details, see [facility] report on specimen [id number]). References 1. Andrews TYLER, Clarence CALLAHAN, Naga LITTLE. Estimating the time of in stillborn fetuses: I. Histologic evaluation of organs; an autopsy study of 129 stillborns. Obstet Gynecol 80(4):575-584, 1991. 2. Alisson TY, Yehuda EE, Zhen I, et al. Sampling and definitions of placental lesions: [employer] consensus statement. Arch Pathol Lab Med 140:698-713, 2016. 0 7:10 PM [employer] [facility] Date of 01/06/19 0 7:10 PM [employer] [facility] Date of Autopsy 01/10/19 0 7:10 PM [employer] [facility] Client Frandy 0 7:10 PM [employer] U PATHOLOGY LAB Embedded Images 0 7:10 PM [employer] U PATHOLOGY LAB Pathology/Cytolo gy AUTOPSY EXAMINATION / Unknown 01/10/2019 10:42 AM [employer] 01/10/2019 10:42 AM [employer] Narrative U PATHOLOGY LAB - 04/07/2019 7:10 PM [employer] A previously reported component [Component Name] is no longer reported. us Melissa Brown MD LAB - PATHOLOGY/CYTOLOGY [facility] Final Result [facility] PATH[facility]Y LAB [address] [phone] documented in this encounter Visit Diagnoses Diagnosis Illness, unspecified documented in this encounter Care Teams Distance Education Director Relationship Specialty Start Date End Date Peyton Vera MD [address] [place] [id number] PCP - General 01/04/19 Peyton Vera MD [address] [facility] [address] [place], [place] [id number] Family Medicine 01/04/19 documented as of this encounter
--- OUTSIDE RECORDS SUMMARY | 2024-06-09 11:04 | XMS_ITS | Clinical Summary ---
Author Organization [facility] Address [address] [facility] [place] [address] Care Team Providers Care System Software Developer Name Role Phone Peyton Vera MD Primary Care Provider [phone] Peyton Vera MD Unavailable Source Comments [facility],non-owned Affiliates and Associated Physician Practices is amultiple site organization consisting of ambulatory clinics and hospital sitesin [place], [place], [place] and [place]. This disclosure is being madepursuant to the Care Everywhere program and may not contain all information available regarding this patient. Last updated 17.[facility] Allergies No known active allergies Medications * Be aware that medications may not be up to date on this document. Alwaysverify current medications with the patient. Vit-Fe Fumarate-FA ( VITAMIN) 28-0.8 MG tablet Take 1 tablet by mouth once daily Active vitamin D3 (CHOLECALCIFEROL ) 25 MCG (1000 UNITS) tablet Take by [...] Binge Drinking Not on file 06/2018 Comments No Sex and Gender Information Value Date Recorded Sex Assigned at Not on file Legal Sex Female 2:41 PM TECHNICAL OPERATIONS MANAGER Gender Identity Not on file Sexual Orientation Not on file Last Filed Vital Signs Vital Sign Reading Time Taken Comments Blood Pressure 108/59 12/28/2018 5:05 PM TECHNICAL OPERATIONS MANAGER Pulse - - Temperature 36.8 C (98.3 F) 12/28/2018 2:44 PM TECHNICAL OPERATIONS MANAGER Respiratory Rate 18 12/28/2018 2:44 PM TECHNICAL OPERATIONS MANAGER Oxygen Saturation 99% 12/28/2018 3:01 PM TECHNICAL OPERATIONS MANAGER Inhaled Oxygen Concentration - - Weight 54.9 kg (121 lb) 12/28/2018 2:50 PM TECHNICAL OPERATIONS MANAGER Height 165.1 cm (5' 5 ) 12/28/2018 2:50 PM TECHNICAL OPERATIONS MANAGER Body Mass Index 20.14 12/28/2018 2:50 PM TECHNICAL OPERATIONS MANAGER Plan of Treatment Health Maintenance Due Date Last Done Comments HIV SCREENING 2008 HEPATITIS C SCREENING 09/30/2011 DTAP/TDAP/TD VACCINES (1 - Tdap) 2012 HEPATITIS B VACCINE (1 of 3 - 19+ 3-dose series) 2012 COVID-19 VACCINE (1 - 2023-2 5 season) 2023 DEPRESSION SCREENING 02/24/2024 INFLUENZA VACCINE (Season Ended) 2024 ZOSTER VACCINE (1 of 2) 10/05/2043 HIB VACCINE Aged Out No longer eligi ble based on patient's age to complete this topic HPV VACCINE Aged Out No longer eligi ble based on patient's age to complete this topic MENINGOCOCCAL (Group B) VACC INE SHARED DECISION-MAKING Aged Out No longer eligibl e based on patient's age to complete this topic MENINGOCOCCAL GROUPS A/C/Y/W VACCINE Aged Out No longer eligible b ased on patient's age to complete this topic PNEUMOCOCCAL VACCINE Aged Out No long er eligible based on patient's age to complete this topic [place] [place] [address] [facility] Advance Directives * Full Code (Latest Code Status on File) Date Activated Date Inactivated Comments 12/28/2018 4:13 PM 12/28/2018 6:25 PM Care Teams System Software Developer Relationship Specialty Start Date End Date Peyton Vera MD [address] [place] [address] PCP - General 01/04/19 Peyton Vera MD [address] [place], [place] [id number] Family Medicine 01/04/19
--- OUTSIDE RECORDS SUMMARY | 2024-06-09 11:04 | XMS_ITS | Clinical Summary ---
Author Organization [facility] Address [address] [place] [address] Care Team Providers Care Greenskeeper Laborer Name Role Phone Unavailable Primary Care Provider [...] Cancer Screening with HPV 10/05/2023 COVID-19 Vaccine ( - 2023-2 5 season) 2023 HPV Vaccines Aged Out No longer eligi ble based on patient's age to complete this topic Meningococcal B Vaccine Aged Out No l onger eligible based on patient's age to complete this topic Meningococcal Vaccine Aged Out No farnaz anam eligible based on patient's age to complete this topic Pneumococcal Vaccine: Pediat rics (0 to 5 Years) and At-Risk Patients (6 to 49 Years) Aged Out No longer eligible b ased on patient's age to complete this topic RSV Immunizations Under 20 Months Aged Out No longer eligible based on patient's age to complete this topic
--- OUTSIDE RECORDS SUMMARY | 2024-06-09 11:04 | XMS_ITS | Clinical Summary ---
Author Organization [facility] Address [address] [place] [address] Care Team Providers Care Painting Machine Operator Name Role Phone Daya Hoskins NP Primary Care Provider Allergies No known active allergies Encounters Date Type Department Care Team Description 03/16/2024 Telephone [facility] Accountable Care Organization [address] [place] [address] Iman Kidd MA Unsuccessful Phone Call 1 (AWV SCHEDULING) from Last 3 Months Social History Tobacco Use Types Packs/Day Years Used Date Smoking Tobacco: Never Assessed Personal Safety Answer Date Recorded Getting School Help Needed Denies 02/14 Comments Unknown Sex and Gender Information Value Date Recorded Sex Assigned at Not on file Legal Sex Female 7:27 PM LARRY CAR OPERATOR Gender Identity Not on file Sexual Orientation Not on file Obstetrics History Para Term AB IAB SAB Ectopic Multiple Livin g Live Births 1 Date Outcome GA Total Labor Labor/2nd/3rd Weight Sex Type Anes PTL Shalini A1 A5 Name Clin Last Filed Vital Signs Vital Sign Reading Time Taken Comments Blood Pressure 116/84 04/23/2022 4:44 PM LARRY CAR OPERATOR Pulse 64 04/23/2022 4:44 PM LARRY CAR OPERATOR Temperature 36.6 C (97.8 F) 04/23/2022 12:59 PM LARRY CAR OPERATOR Respiratory Rate 18 04/23/2022 4:44 PM LARRY CAR OPERATOR Oxygen Saturation 99% 04/23/2022 4:44 PM LARRY CAR OPERATOR Inhaled Oxygen Concentration - - Weight 57 kg (125 lb 10.6 oz) 04/23/2022 12:59 P M LARRY CAR OPERATOR Height 165.1 cm (5' 5 ) 04/23/2022 12:59 PM LARRY CAR OPERATOR Body Mass Index 20.91 04/23/2022 12:59 PM LARRY CAR OPERATOR Plan of Treatment Health Maintenance Due Date Last Done Comments Cervical Cancer Screening 1993 Depression Screening 1993 Hepatitis C Screening 1993 Regular Well Visit/Exam 18-64 10/05/2011 DTaP/Tdap/Td Vaccine (8 - Td or Tdap) 12/21/2022 12/21/2012, 10/20/2005, 01/04/1998, Additional history exists Influenza Vaccine (#1) 2023 4, 03/28/2013, 11/16/2009, Additional history exists Hepatitis B Screening Completed 11/14/2003 , 05/10/1998, 01/24/1998 Varicella Vaccines Completed 09/28/2007, 12/31/1999 HPV Vaccines Aged Out No longer eligi ble based on patient's age to complete this topic Pneumococcal vaccine <65 Aged Out No longer eligible based on patient's age to complete this topic Insurance [facility] Care Teams Painting Machine Operator Relationship Specialty Start Date End Date Daya Hoskins, PARIMUTUEL CLERK [address] [address] PCP - General 12/27/18
--- OUTSIDE RECORDS SUMMARY | 2024-06-09 11:04 | XMS_ITS | Clinical Summary ---
Author Organization [facility] Address [address] [place] [address] Phone Care Team Providers Care Glass Tube Bender Name Role Phone Unavailable Primary Care Provider Unavailabl e Encounters Date Type Department Care Team Description 05/24/2024 External Device Data STL ABSTRACTION Provider, Abstract 05/24/2024 External Device Data STL ABSTRACTION Provider, Abstract 05/23/2024 12:40 PM CDT - 05/23/2024 11:59 PM CDT Hospital Encounter [facility] Maternal and Health [facility] [address] [place] [address] Perri Cheng MD Discharge Disposition: Home or Self Care from Last 3 Months Social History Tobacco [...] of 3 - 19+ 3-dose series) 2012 Preventative Visit-Managed Medicaid 2012 HPV/Cotest (21-29) 2014 PAP SMEAR 12/09/2019 12/08/2016 INFLUENZA VACCINE (#1) 2023 CERVICAL CANCER SCREENING 10/05/2023 HPV/Cotest (30-65) 10/05/2023 PAP SMEAR 10/05/2023 12/08/2016 HPV VACCINES Aged Out No longer eligi ble based on patient's age to complete this topic Procedures Procedure Name Priority Date/Time Associated Diagnosis Comments US OB DETAIL SINGLE GEST Routine 05/23/2024 1:33 PM CDT screening for malformation using ultrasonics History of IUFD from Last 3 Months Results * US OB DETAIL SINGLE GEST (05/23/2024 1:33 PM CDT) Anatomical Region Laterality Modality Pelvis Ultrasound 05/23/2024 12:5 7 PM CDT Narrative 05/23/2024 1:37 PM CDT STL COMP ----- Pat. Name: DANITA ARZATE Study Date: 05/23/2024 12:57pm Pat. NO: [id number] Referring MD: PERRI CHENG MD Site: [place] [facility]: Samara Betancur RDMS : 1995 Age: 28 ----- INDICATION ----- Anatomy Survey Anxiety, Maternal Screening, Other Specified G2 loss @ 20 weeks CODING ----- Diagnoses Z3A.19: Weeks of gestation Z36.89: Encounter to establish gestational age using ultrasound O99.342: Other mental disorders complicating Z36.3: Encounter for screening for malformations Procedures 93408: Ultrasound, uterus, real time with image documentation, and maternal evaluation plus detailed anatomic examination, transabdominal approach HISTORY ----- OB History 5. Para 3 Tavares children born living (T) 3. Stillbirths 1 T3L3 MATERNAL ASSESSMENT ----- Physical Exam Weight 59 kg. BMI 21.63 kg/m METHOD ----- Transabdominal ultrasound examination ----- Tavares . Number of fetuses: 1 DATING ----- Method of dating: based on stated TITUS GA by prior assessment 19 w + 4 d TITUS by prior assessment: 10/13/2024 Ultrasound examination on: 05/23/2024 GA by U/S based upon: AC, BPD, EFW, Femur, HC GA by U/S 19 w + 1 d TITUS by U/S: 10/16/2024 Assigned: based on stated TITUS, selected on 05/23/2024 Assigned GA 19 w + 4 d Assigned TITUS: 10/13/2024 BIOMETRY ----- BPD 44.6 mm 19w 3d 46% Hadlock OFD 56.9 mm 20w 0d 65% Na HC 162.5 mm 19w 0d 19% Hadlock Cerebellum tr 19.3 mm 19w 2d 41% Mariscal Nuchal fold 3.7 mm AC 136.5 mm 19w 1d 29% Hadlock Femur 29.4 mm 19w 0d 25% Hadlock Humerus 28.3 mm 19w 1d 36% Na HC / AC 1.19 56% Nicolaides Weight Calculation: EFW 273 g 19w 0d 21% Hadlock EFW (lb,oz) 0 lb 10 oz EFW by Hadlock ([id number]) Head / Face / Neck Biometry: Agronomy Advisor 4.8 mm CM 3.6 mm 12% Nicolaides Outer IOD 28.3 mm 18w 3d 10% Na Extremities / Bony Struc Biometry: FL / BPD 0.66 22% Hadlock FL / HC 0.18 35% Hadlock FL / AC 0.22 50% Hadlock GENERAL EVALUATION ----- Cardiac activity present. FHR 142 bpm. movements: present. Presentation: transverse Placenta: Placental site: anterior, fundal Umbilical cord: Cord vessels: 3 vessel cord. Insertion site: placental insertion: normal Amniotic fluid: Amount of AF: normal amount. MVP 3.8 cm ANATOMY ----- The following structures appear normal: Head / Neck Cranium. Lateral ventricles. Choroid plexus. Midline falx. Cavum septi pellucidi. Cerebellum. Cisterna magna. Thalami. Nuchal fold. Face Lips. Profile. Nose. Palate. Orbits. Heart / Thorax 4-chamber view. RVOT view. LVOT view. 3-vessel view. 4-dmhpqi-alxdohl view. Situs. Aortic arch view. Ductal arch view. Superior vena cava. Inferior vena cava. High short axis view. Cardiac rhythm. Diaphragm. Abdomen Abdominal wall. Stomach. Kidneys. Bladder. Spine Cervical spine. Thoracic spine. Lumbar spine. Sacral spine. Extremities / Arms. Right hand. Left hand. Legs. Right foot. Left foot. Skeleton DOPPLER ----- Umbilical Artery: PI 1.59 92% Milo RI 0.64 3% Milo PS 39.16 cm/s ED 14.01 cm/s TAmax 15.80 cm/s MD 7.94 cm/s S / D 2.80 4% Milo MATERNAL STRUCTURES ----- Cervix Visualized Approach - Transabdominal: Cervical length 39.6 mm Right Ovary Normal Size 18 mm x 17 mm x 11 mm. Vol 1.8 cm Left Ovary Normal Size 31 mm x 26 mm x 17 mm. Vol 6.8 cm Cyst(s) Size 14 mm x 8 mm x 11 mm. Mean 11.0 mm. Vol 0.645 cm GROWTH OVERVIEW ----- Exam date GA BPD (mm) HC (mm) AC (mm) FL (mm) HL (mm) EFW (g) 05/23/2024 19w 4d 44.6 46% 162.5 19% 136.5 29% 29.4 25% 28.3 36% 273 21% COMMENT ----- Patient's name and date of were verified by the wire stockkeeper before the exam IMPRESSION ----- 1. Single living fetus with a gestational age of 19w 4d based on the reported clinical dates. 2. Current growth parameters are consistent with the stated EDC. The fetus is appropriate for gestational age in size at the 21% (273 g). 3. Detailed anatomic survey is unremarkable. No gross structural abnormalities noted. No sonographic markers for aneuploidy noted. 4. Amniotic fluid volume is normal for gestational age. 5. The cervical length is within normal range for gestational age. 6. The right and left ovary appear normal in size and shape. 7. Placenta is anterior, fundal . No previa/not low-lying. The placental cord insertion appears normal. Recommendations: - Further ultrasounds based on clinical indication. - Recommend interval third trimester growth and anatomy at 32 weeks. Thank you for allowing us to participate in the care of this patient. Procedure Note Tyrone Chawla MD - 05/23/2024 STL COMP ----- Pat. Name:Jluis ARZATE Date:05/23/2024 12:57pm Pat. NO: [id number] MD:PERRI CHENG MD [facility]:Samara Betancur RDMS :1995Age:28 ----- INDICATION ----- Anatomy Survey Anxiety, Maternal Screening, Other Specified G2 loss @ 20 weeks CODING ----- Diagnoses Z3A.19: Weeks of gestation Z36.89: Encounter to establish gestational ageusing ultrasound O99.342: Other mental disorders complicatingpregnancy Z36.3: Encounter for screening formalformations Procedures 12580: Ultrasound, uterus, real time withimage documentation, and maternal evaluation plus detailed anatomic examination,transabdominal approach HISTORY ----- OB History 5. Para 3 Tavares children born living (T) 3. Stillbirths1 T3L3 MATERNAL ASSESSMENT ----- Physical Exam Weight 59 kg. BMI 21.63 kg/m METHOD ----- Transabdominal ultrasound examination ----- Tavares . Number of fetuses: 1 DATING ----- Method of dating:based on stated TITUS GA by prior w + 4 d TITUS by prior assessment:10/13/2024 Ultrasound examination on:05/23/2024 GA by U/S based upon:AC, BPD, EFW, Femur, HC GA by U/S19 w + 1 d TITUS by U/S:10/16/2024 Assigned:based on stated TITUS, selected on 05/23/2024 Assigned GA19 w + 4 d Assigned TITUS:10/13/2024 BIOMETRY ----- BPD 44.6 mm 19w 3d46% Hadlock OFD 56.9 mm 20w 0d65% Na HC 162.5 mm 19w 0d19% Hadlock Cerebellum tr 19.3 mm 19w 2d41% Mariscal Nuchal fold 3.7 mm AC 136.5 mm 19w 1d29% Hadlock Femur 29.4 mm 19w 0d25% Hadlock Humerus 28.3 mm 19w 1d36% Na HC / AC 1.19 56%Nicolaides Weight Calculation: EFW 273 g 19w 0d 21%Hadlock EFW (lb,oz) 0 lb 10 oz EFW by Hadlock ([id number]) Head / Face / Neck Biometry: Agronomy Advisor 4.8 mm CM 3.6 mm 12%Nicolaides Outer IOD 28.3 mm 18w 3d 10%Na Extremities / Bony Struc Biometry: FL / BPD 0.66 22%Hadlock FL / HC 0.18 35%Hadlock FL / AC 0.22 50%Hadlock GENERAL EVALUATION ----- Cardiac activity present. FHR 142 bpm. movements: present.Presentation: transverse Placenta: Placental site: anterior, fundal Umbilical cord: Cord vessels: 3 vessel cord. Insertion site: placentalinsertion: normal Amniotic fluid: Amount of AF: normal amount. MVP 3.8 cm ANATOMY ----- The following structures appear normal: Head / Neck Cranium. Lateral ventricles. Choroid plexus.Midline falx. Cavum septi pellucidi. Cerebellum. Cisterna magna. Thalami. Nuchal fold. Face Lips. Profile. Nose. Palate. Orbits. Heart / Thorax 4-chamber view. RVOT view. LVOT view. 3-vesselview. 2-eyvtme-ainejfq view. Situs. Aortic arch view. Ductal arch view. Superior vena cava. Inferiorvena cava. High short axis view. Cardiac rhythm. Diaphragm. Abdomen Abdominal wall. Stomach. Kidneys. Bladder. Spine Cervical spine. Thoracic spine. Lumbar spine.Sacral spine. Extremities / Arms. Right hand. Left hand. Legs. Right foot.Left foot. Skeleton DOPPLER ----- Umbilical Artery: PI 1.59 92%Milo RI 0.64 3%Milo PS 39.16 cm/s ED 14.01 cm/s TAmax 15.80 cm/s MD 7.94 cm/s S / D 2.80 4%Milo MATERNAL STRUCTURES ----- Cervix Visualized Approach - Transabdominal: Cervical length 39.6mm Right Ovary Normal Size 18 mm x 17 mm x 11 mm. Vol 1.8 cm Left Ovary Normal Size 31 mm x 26 mm x 17 mm. Vol 6.8 cm Cyst(s) Size 14 mm x 8 mm x 11 mm. Mean 11.0 mm.Vol 0.645 cm GROWTH OVERVIEW ----- Exam date GA BPD (mm) HC (mm) AC (mm) FL(mm) HL (mm) EFW (g) 05/23/2024 19w 4d 44.6 46% 162.5 19% 136.5 29%29.4 25% 28.3 36% 273 21% COMMENT ----- Patient's name and date of were verified by the wire stockkeeper beforethe exam IMPRESSION ----- 1. Single living fetus with a gestational age of 19w 4d based on thereported clinical dates. 2. Current growth parameters are consistent with the stated EDC. The fetusis appropriate for gestational age in size at the 21% (273 g). 3. Detailed anatomic survey is unremarkable. No gross structuralabnormalities noted. No sonographic markers for aneuploidy noted. 4. Amniotic fluid volume is normal for gestational age. 5. The cervical length is within normal range for gestational age. 6. The right and left ovary appear normal in size and shape. 7. Placenta is anterior, fundal . No previa/not low-lying. The placentalcord insertion appears normal. Recommendations: - Further ultrasounds based on clinical indication. - Recommend interval third trimester growth and anatomy at 32weeks. Thank you for allowing us to participate in the care of this patient. us Perri Cheng MD ORDERABLES Final Res ult from Last 3 Months Insurance [employer] [place]
[2024-06-09 11:30] LABS: Add Urine Microscopic? YES; Appearance Urine Turbid (Clear); Bacteria Urine Rare /hpf; Bilirubin Urine Negative (Negative); Blood Urine Negative (Negative); Color Urine Yellow (Yellow); Glucose Urine UA Negative (Negative); Ketones Urine Negative (Negative); Leukocyte Esterase Ur Trace LEU/UL (Negative); Nitrate Urine Negative (Negative); Non Pathogenic Casts 0-2; Protein Urine Negative (Negative); RBC Urine 0-2 /hpf (0-2); Specific Grav Ur 1.016 (1.001-1.035); Squamous Epithelial Cell Urine Few /hpf (Few); Urobilinogen Urine 0.2 mg/dL (<2.0)
--- NOTE | 2024-06-09 12:05 | PC.NURSE ---
Called Dr. Cheng with pt status. Pt admitted with complaints of constant lower abdominal pressure. No contractions seen on monitor. Doppler FHTs 140. UA results given. Orders received to do SVE. If closed, june D/C home with Macrobid prescription.
--- NOTE | 2024-06-12 22:22 | PM.OBTRLD ---
OB - Triage/Final Diagnosis Visit Information Reason for evaluation: other (abdominal pain) Comments/Additional reasons for admission: I have assessed the risk for this patient, Danita Page, and determined that she would benefit from observation care. Evaluation Laboratory results: Laboratory Tests 06/09/24 10:50 Urine Color Yellow Urine Appearance Turbid H Urine pH 7.0 Ur Specific [place] 1.016 Urine Protein Negative Urine Glucose (UA) Negative Urine Ketones Negative Ur Blood (Man) Negative Urine Nitrate Negative Urine Bilirubin Negative Urine Urobilinogen 0.2 Ur Leukocyte Esterase Trace H Urine RBC 0-2 Urine WBC 6-10 H Ur Squamous Epith Cells Few Urine Bacteria Rare Urine Casts 0-2
== END 2024-06-09 12:34 | disposition home or self-care (01) ==
PROVIDERS: Admitting Provider Obstetrics & Gynecology Gynecology; Visit Provider Obstetrics & Gynecology Gynecology
DX: O26.892 Other specified pregnancy related conditions, second trimester (principal); R10.9 Unspecified abdominal pain; Z3A.22 22 weeks gestation of pregnancy
CPT/HCPCS: 81001; 87086; G0378; G0379

== ENCOUNTER 2024-06-29 16:11 | Emergency (ER) | payer OTHER, SELFPAY ==
--- OUTSIDE RECORDS SUMMARY | 2024-06-29 16:13 | XMS_ITS | Clinical Summary ---
Author Organization [facility] Address [address] [place] [address] Care Team Providers Care Heavy Equipment Field Mechanic Name Role Phone Peyton Vera MD Primary Care Provider [phone] Peyton Vera MD Unavailable [phone] Source Comments [facility],non-owned Affiliates and Associated Physician Practices is amultiple site organization consisting of ambulatory clinics and hospital sitesin [place], [place], [place] and [place]. This disclosure is being madepursuant to the Care Everywhere program and may not contain all information available regarding this patient. Last updated 17.[facility] Allergies No known active allergies Medications * [...] on file Legal Sex Female 2:41 PM SENIOR VISUAL DESIGNER Gender Identity Not on file Sexual Orientation Not on file Last Filed Vital Signs Vital Sign Reading Time Taken Comments Blood Pressure 108/59 12/28/2018 5:05 PM SENIOR VISUAL DESIGNER Pulse - - Temperature 36.8 C (98.3 F) 12/28/2018 2:44 PM SENIOR VISUAL DESIGNER Respiratory Rate 18 12/28/2018 2:44 PM SENIOR VISUAL DESIGNER Oxygen Saturation 99% 12/28/2018 3:01 PM SENIOR VISUAL DESIGNER Inhaled Oxygen Concentration - - Weight 54.9 kg (121 lb) 12/28/2018 2:50 PM SENIOR VISUAL DESIGNER Height 165.1 cm (5' 5 ) 12/28/2018 2:50 PM SENIOR VISUAL DESIGNER Body Mass Index 20.14 12/28/2018 2:50 PM SENIOR VISUAL DESIGNER Plan of Treatment Health Maintenance Due Date [...] patient's age to complete this topic [place] [address] [place] [address] [facility] Advance Directives * Full Code (Latest Code Status on File) Date Activated Date Inactivated Comments 12/28/2018 4:13 PM 12/28/2018 6:25 PM Care Teams Heavy Equipment Field Mechanic Relationship Specialty Start Date End Date Peyton Vera MD [address] [place] [address] PCP - General 01/04/19 Peyton Vera MD [address] [place], [place] [id number] Family Medicine 01/04/19
--- OUTSIDE RECORDS SUMMARY | 2024-06-29 16:13 | XMS_ITS | Clinical Summary ---
Author Organization [facility] Address [address] [place] [address] Care Team Providers Care Career Discovery Teacher Name Role Phone Unavailable Primary Care [...]
--- OUTSIDE RECORDS SUMMARY | 2024-06-29 16:13 | XMS_ITS | Clinical Summary ---
Author Organization [facility] Address [address] [place] [address] Phone Care Team Providers Care Manager Labor Delivery Name Role Phone Unavailable Primary Care Provider Unavailabl e Encounters Date Type Department Care Team Description 05/24/2024 External Device Data STL ABSTRACTION Provider, Abstract 05/24/2024 External Device Data STL ABSTRACTION Provider, Abstract 05/23/2024 12:40 PM CDT - 05/23/2024 11:59 PM CDT Hospital Encounter [facility] Maternal and Health [facility] [address] [place] [address] Perri Cheng MD Discharge Disposition: [...] of 3 - 19+ 3-dose series) 2012 HPV/Cotest (21-29) 2014 INFLUENZA VACCINE (#1) 2023 CERVICAL CANCER SCREENING [...] ARZATE Study Date: 05/23/2024 12:57pm Pat. NO: [id number] Referring MD: PERRI CHENG MD Site: [facility] Occupations Teacher: Samara Betancur RDMS : 1995 Age: 28 ----- INDICATION ----- Anatomy Survey Anxiety, Maternal Screening, Other Specified G2 loss @ 20 weeks CODING ----- Diagnoses Z3A.19: Weeks of gestation Z36.89: Encounter to establish gestational age using ultrasound O99.342: Other mental disorders complicating Z36.3: Encounter for screening for malformations Procedures 97159: Ultrasound, uterus, real time with image documentation, [...] 0 lb 10 oz EFW by Hadlock ([id number]) Head / Face / Neck Biometry: Stock Preparer 4.8 mm CM 3.6 mm 12% Nicolaides [...] view. RVOT view. LVOT view. 3-vessel view. 9-efmzkv-eshmvij view. Situs. Aortic arch view. Ductal arch [...] and date of were verified by the homeland security program specialist before the exam IMPRESSION ----- 1. Single [...] Pat. Name:Jluis ARZATE Date:05/23/2024 12:57pm Pat. NO: [id number] MD:PERRI CHENG MD [facility]anc[facility] RDMS :1995Age:28 ----- INDICATION ----- Anatomy Survey Anxiety, Maternal Screening, Other Specified G2 loss @ 20 weeks CODING ----- Diagnoses Z3A.19: Weeks of gestation Z36.89: Encounter to establish gestational ageusing ultrasound O99.342: Other mental disorders complicatingpregnancy Z36.3: Encounter for screening formalformations Procedures 71473: Ultrasound, uterus, real time withimage documentation, and maternal evaluation plus detailed anatomic examination,transabdominal approach HISTORY ----- OB History 5. Para 3 Tavares children born living (T) 3. Stillbirths1 T3L3 MATERNAL ASSESSMENT ----- Physical Exam Weight 59 kg. BMI 21.63 kg/m METHOD ----- Transabdominal ultrasound examination ----- Tavares . Number of fetuses: 1 DATING ----- Method of dating:based on stated TITUS GA by prior [id number] w + 4 d TITUS by prior [...] 0 lb 10 oz EFW by Hadlock ([id number]) Head / Face / Neck Biometry: Stock Preparer 4.8 mm CM 3.6 mm 12%Nicolaides Outer IOD 28.3 mm 18w 3d 10%An Extremities / Bony Struc Biometry: FL / [...] 4-chamber view. RVOT view. LVOT view. 3-vesselview. 8-ixgzax-ipkixgg view. Situs. Aortic arch view. Ductal arch [...] and date of were verified by the homeland security program specialist beforethe exam IMPRESSION ----- 1. Single living [...] of this patient. us Perri Cheng MD US ORDERABLES Final Res ult from Last 3 Months Insurance [employer] [place] [facility] Address: [address] [address]
--- OUTSIDE RECORDS SUMMARY | 2024-06-29 16:13 | XMS_ITS | Clinical Summary ---
Author Organization [facility] Address [address] [place] [address] Care Team Providers Care Production Control Coordinating Clerk Name Role Phone Daya Hoskins NP Primary Care Provider Allergies No known active allergies Social History Tobacco Use Types Packs/Day Years Used Date Smoking Tobacco: Never Assessed Personal Safety Answer Date Recorded Getting School Help Needed Denies 02/14 Comments Unknown Sex and Gender Information Value Date Recorded Sex Assigned at Not on file Legal Sex Female 7:27 PM BEAD STRINGER Gender Identity Not on file Sexual Orientation Not on file Obstetrics History Para Term AB IAB SAB Ectopic Multiple Livin g Live Births 1 Date Outcome GA Total Labor Labor/2nd/3rd Weight Sex Type Anes PTL Shalini A1 A5 Name Clin Last Filed Vital Signs Vital Sign Reading Time Taken Comments Blood Pressure 116/84 04/23/2022 4:44 PM BEAD STRINGER Pulse 64 04/23/2022 4:44 PM BEAD STRINGER Temperature 36.6 C (97.8 F) 04/23/2022 12:59 PM BEAD STRINGER Respiratory Rate 18 04/23/2022 4:44 PM BEAD STRINGER Oxygen Saturation 99% 04/23/2022 4:44 PM BEAD STRINGER Inhaled Oxygen Concentration - - Weight 57 kg (125 lb 10.6 oz) 04/23/2022 12:59 P M BEAD STRINGER Height 165.1 cm (5' 5 ) 04/23/2022 12:59 PM BEAD STRINGER Body Mass Index 20.91 04/23/2022 12:59 PM BEAD STRINGER Plan of Treatment Health Maintenance Due Date [...] patient's age to complete this topic Insurance [facility] Care Teams Production Control Coordinating Clerk Relationship Specialty Start Date End Date Daya Hoskins, CERTIFIED CAREGIVER [address] [place] [id number] PCP - General 12/27/18
--- OUTSIDE RECORDS SUMMARY | 2024-06-29 16:13 | XMS_ITS | Referral Summary ---
Author Organization [facility] Address [address] [place] [address] Care Team Providers Care Education Associate Name Role Phone Daya Hoskins NP Primary Care Provider Allergies No known active allergies Social History Tobacco Use Types Packs/Day Years Used Date Smoking Tobacco: Never Assessed Personal Safety Answer Date Recorded Getting School Help Needed Denies 02/14 Comments Unknown Sex and Gender Information Value Date Recorded Sex Assigned at Not on file Legal Sex Female 7:27 PM ROTARY ENGRAVER Gender Identity Not on file Sexual Orientation Not on file Last Filed Vital Signs Vital Sign Reading Time Taken Comments Blood Pressure 116/84 04/23/2022 4:44 PM ROTARY ENGRAVER Pulse 64 04/23/2022 4:44 PM ROTARY ENGRAVER Temperature 36.6 C (97.8 F) 04/23/2022 12:59 PM ROTARY ENGRAVER Respiratory Rate 18 04/23/2022 4:44 PM ROTARY ENGRAVER Oxygen Saturation 99% 04/23/2022 4:44 PM ROTARY ENGRAVER Inhaled Oxygen Concentration - - Weight 57 kg (125 lb 10.6 oz) 04/23/2022 12:59 P M ROTARY ENGRAVER Height 165.1 cm (5' 5 ) 04/23/2022 12:59 PM ROTARY ENGRAVER Body Mass Index 20.91 04/23/2022 12:59 PM ROTARY ENGRAVER Plan of Treatment Not on file Insurance [facility] Care Teams Education Associate Relationship Specialty Start Date End Date Daya Hoskins, CITY BUS DRIVER [address] [address] PCP - General 12/27/18
--- OUTSIDE RECORDS SUMMARY | 2024-06-29 16:13 | XMS_ITS | Encounter Summary ---
Author Organization [facility] Address [address] [place] [address] Care Team Providers Care Power Plant Superintendent Name Role Phone Peyton Vera MD Primary Care Provider [phone] Peyton Vera MD Unavailable [phone] Encounter Details Date Type Department Care Team (Late st Contact Info) Description 01/10/2019 Lab Requisition [facility] Care Pathology Lab [address] [place] [address] Melissa Brown MD [address] [place] [address] Illness, unspecified Social History Tobacco Use Types [...] on file Legal Sex Female 2:41 PM PRACTICE ASSISTANT Gender Identity Not on file Sexual Orientation [...] Assessment Author No 12/28/2018 5:06 PM Terese Fenrandez RN * Does person have difficulty dressing/bathing? Answer Date of Assessment Author No 12/28/2018 5:06 PM Terese Fernandez RN * Does person have difficulty doing errands alone? Answer Date of Assessment Author No 12/28/2018 5:06 PM Terese Fernandez RN documented as of this encounter Mental Status * Does person have difficulty concentrating/remembering/making decisions? Answer Entry Date Author No 12/28/2018 5:06 PM Terese Fernandez RN documented in this encounter Plan of Treatment Not on file documented as of this encounter Procedures Procedure Name Priority Date/Time Associated Diagnosis Comments AUTOPSY (SLU) Routine 01/10/2019 10:42 AM PRACTICE ASSISTANT Illness, unspecified documented in this encounter Results * AUTOPSY (SLU) (01/10/2019 10:42 AM PRACTICE ASSISTANT) Case Report Autopsy Report Case: [id number] Authorizing Provider: Melissa Brown MD Ordering Provider: Melissa Brown MD Ordering Location: [facility] Care Pathology Lab Pathologist: Pritesh Benjamin MD Specimen: Autopsy 0 7:10 PM PRACTICE ASSISTANT [facility] FINAL ANATOMIC DIAGNOSES I. [...] cord ) II. 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 Normal whole genome chromosome SNP microarray analysis The interpretation of this case [facility], [address] [place] [address]. 0 7:10 PM [facility] PATHOLOGY LAB Clinical History Barry Page, also known as Clement Wheeler, was stillborn to Bri Hope on 01/06/19 at 20 weeks' gestation. Delivery occurred at [facility] ([address] [place] [address]). Ms. Page, a 23-year-old woman who had [...] mother, and the body was transported to [facility] Department of Pathology. An autopsy was begun on 01/10/19. Cytogenetic analysis of placental tissue was performed by [facility] ([address] [place] [address], ) and showed a normal female karyotype (46,XX); additionally, whole genome chromosome SNP microarray (Reveal) analysis was normal. For additional details, see [facility] report on specimen [id number] ([facility] Specimen Number [id number]). 0 7:10 PM PRACTICE ASSISTANT [facility] PATHOLOGY LAB EXTERNAL EXAMINATION Normal expected (NE) values represent means or means +/- one standard deviation for stillborn at 20 weeks' gestation. Development: Extreme prematurity Nourishment: Thin Weight: 186 g NE: 313 g +/- 139 g [place]-Heel Length: 25 cm NE: 24.9 +/- 2.3 g [place]-Rump Length: 17 cm NE: 18 cm +/- [...] Needle Puncture Castaneda: None 0 7:10 PM PRACTICE ASSISTANT [facility] PATHOLOGY LAB INTERNAL EXAMINATION Normal expected (NE) [...] and glistening withno focal lesions MEDIASTINUM: Thymus: [place]-multani Weight: 0.27 g NE: 0.4 g +/- [...] and glistening with no focal lesions Color: [place] Consistency: Rubbery Crepitus: Absent Bronchi: Patent Vessels: [...] NE: 1.3 g +/- 0.6 g Color: [place]-orange Shape: Pyramidal Consistency: Soft Cut Surfaces: Unremarkable [...] Bones: Unremarkable Sternum: Unremarkable SKULL: Primary Incision: Ylsosqv-rw-ylktlx d Symmetry: Symmetrical Sutures: Overlapping Fontanelles: Anterior [...] EXAMINATION [based on gross examination performed at [facility] as case [id number]] Received fresh is a fragmented ovoid placenta [...] placental disc is collected for cytogenetic analysis. [employer] sections are submitted as B1 through B5. 0 7:10 PM [facility] PATHOLOGY LAB Microscopic Description 13 H&E. CARDIOVASCULAR SYSTEM: Sections of the aorta show passive congestion (of the vasa vasorum) and mild autolysis. Sections of the right and left ventricular ritter show moderate autolysis (consistent with abzzh-yy-yvtqtib y interval of 1-2 days). RESPIRATORY SYSTEM: Sections of the larynx and trachea show passive congestion and mild autolysis (consistent with mdgbn-yh-yxfijvx y interval of less than 7 days). Sections of the lungs show passive congestion, mild autolysis (consistent with gludj-ua-kwgnauo y interval of less than 4 days), and canalicular phase of development (appropriate for gestational age). THYMUS: Sections of thymus show mild autolysis, preservation of the corticmedullary junction, and foci of extramedullary hematopoiesis. THYROID: Sections of thyroid show passive congestion and mild autolysis. ALIMENTARY CANAL and MESENTERY: Sections of the alimentary canal show varying degrees (mild to moderate) of mucosal autolysis (consistent with hssmx-el-yldstgd y interval of less than 1 week); ganglia are present in submucosal and myenteric plexuses throughout the gut. Sections of mesentery show passive congestion and mild autolysis. HEPATOBILIARY SYSTEM: A section of liver shows mild autolysis (consistent with wkbsg-rx-ffnzsyi y interval of more than 1 day and less than 4 days) and widespread extramedullary hematopoiesis. PANCREAS: Sections of the pancreas show moderate autolysis. ADRENALS: Sections of the adrenals show mild autolysis (consistent with qwomt-lm-spkylji y interval of less than 7 days), preservation of the cortex (appropriate for gestational age), and foci of extramedullary hematopoiesis. GENITOURINARY SYSTEM: Sections of uterus and ovaries show mild autolysis. Sections of the kidneys show preservation of the nephrogenic zone (appropriate for gestational age) and mild autolysis (consistent with lozek-it-yyidbhy y interval of more than 4 hours [...] architecture. PLACENTA and UMBILICAL CORD (5 H&E, [facility] case [id number]): Sections of the membranes are unremarkable. Sections [...] chorionic villi with intravascular karyorrhexis (consistent with aafap-zh-hevivgq y interval of more than 6 hours), foci of villous stromal-vascular karyorrhexis, and retroplacental hematoma. 0 7:10 PM PRACTICE ASSISTANT [facility] PATHOLOGY LAB CLINICOPATHOLOGIC CORRELATION Autopsy findings included a macerated female fetus with growth parameters appropriate for gestational age and slightly abnormal facies (slightly upslanting palpebral fissures). Based on criteria developed by Genest et al (1), the interval between demise and delivery is estimated as 1-2 days. Examination of the placenta ([facility] case [id number]) showed evidence of vascular malperfusion (chorionic plate thrombosis and villous stromal-vascular karyorrhexis), suggesting the possibility of blood flow obstruction; however, such changes may also be attributable to involutional or degenerative changes following demise (2). Cytogenetic analysis of placental tissue (performed by [facility]) showed a normal female karyotype (46,XX) with normal whole genome chromosome SNP microarray analysis (for additional details, see [facility] report on specimen [id number]). References 1. Andrews TYLER, Clarence CALLAHAN, Naga LITTLE. Estimating the time of in stillborn fetuses: I. Histologic evaluation of organs; an autopsy study of 129 stillborns. Obstet Gynecol 80(4):575-584, 1991. 2. Alisson TY, Yehuda EE, Zhen I, et al. Sampling and definitions of placental lesions: [place] [employer] consensus statement. Arch Pathol Lab Med 140:698-713, 2016. 0 7:10 PM PRACTICE ASSISTANT [facility] Date of 01/06/19 0 7:10 PM PRACTICE ASSISTANT [facility] Date of Autopsy 01/10/19 0 7:10 PM PRACTICE ASSISTANT [facility] Client Frandy 0 7:10 PM PRACTICE ASSISTANT [facility] PATH[facility] LAB Embedded Images 0 7:10 PM PRACTICE ASSISTANT [facility] Pathology/Cytolo gy AUTOPSY EXAMINATION / Unknown 01/10/2019 10:42 AM PRACTICE ASSISTANT 01/10/2019 10:42 AM PRACTICE ASSISTANT Narrative [facility] PATH[facility] - 04/07/2019 7:10 PM PRACTICE ASSISTANT A previously reported component [Component Name] is no longer reported. us Melissa Brown MD LAB - PATHOLOGY/CYTOLOGY [facility] [place] Final Result [facility] [address] [phone] documented in this encounter Visit Diagnoses Diagnosis Illness, unspecified documented in this encounter Care Teams Power Plant Superintendent Relationship Specialty Start Date End Date Peyton Vera MD [address] [place] [phone] PCP - General 01/04/19 Peyton Vera MD [address] [facility] [address] [place], [place] [phone] Family Medicine 01/04/19 documented as of this encounter
[2024-06-29 16:23] VITALS: BP 126/65; PULSE 101; RESP 18; TEMP 37.3; O2SAT 99
[2024-06-29 16:46] LABS: EDCOVIDSCREEN Negative (Negative); EDINFLUASCREEN Negative (Negative); EDINFLUBSCREEN Negative (Negative)
[2024-06-29 16:47] LABS: EDSTREPNEGPOS1 Negative (Negative)
--- NOTE | 2024-06-29 16:54 | ED.URI ---
HPI - URI/Sore Throat General Chief Complaint: Upper Respiratory Infection Stated Complaint: flu symptoms Time Seen by Provider: 06/29/24 16:30 Source: patient and RN notes reviewed Mode of arrival: ambulatory Limitations: no limitations History of Present Illness HPI Narrative: 28-year-old female presents Express Care complaining of upper respiratory symptoms for 5 days. Patient reports cough, congestion , sore throat, nausea and vomiting, body aches. Patient denies any fevers, chills, chest pain, shortness of breath, abdominal pain, vaginal bleeding, ear pain, or any other symptoms. Reports her cough is dry nonproductive. Patient is 6 months . . Patient denies any complications with her current other than dealing with morning sickness. Patient has not vomited since yesterday. Patient denies any issues. Patient reports she is not feeling better. Patient has been taking Tylenol for her symptoms. Related Data Home Medications ?Medication ?Instructions ?Recorded ?Confirmed ?Last Taken ?Type ergocalciferol (vitamin D2) 1,250 1,250 mcg PO WEEKLY 09/14/22 12/25/22 12/23/22 History mcg (50,000 unit) capsule ferrous sulfate 325 mg (65 mg 325 mg PO DAILY 12/15/22 12/25/22 12/23/22 History iron) tablet (FeroSul) Allergies Allergy/AdvReac Type Severity Reaction Status Date / Time No Known Allergies Allergy Verified 06/29/24 16:24 Review of Systems Review of Systems: CONSTITUTIONAL: Denies fever, chills, or sweats. Past for body aches. EYES: Denies visual changes, redness, or discharge. ENT: Denies rhinorrhea, or otalgia. Positive for congestion and sore throat. CARDIOVASCULAR: Denies chest pain, palpitations, or edema. RESPIRATORY: Positive for cough. Negative for dyspnea. GASTROINTESTINAL: Denies abdominal pain or diarrhea. Positive for nausea and vomiting. GENITOURINARY: Denies dysuria, vaginal bleeding, vaginal discharge, or hematuria. SKIN: Denies rash or itching. MUSCULOSKELETAL: Denies back pain, joint pain, or myalgia. NEUROLOGIC: Denies headache, numbness, or weakness. PSYCHIATRIC: Denies anxiety or depression. All other systems reviewed are negative, except as documented in HPI. [facility] Past Medical History Medical History IUFD at 20 weeks or more of gestation Family History Family History Other No pertinent family history Social History Social History Smoking status: Former smoker Tobacco type: e-cigarettes/vaping Second hand tobacco smoke exposure: No Substance use: former Last use: Prior to knowledge of Lack of Transportation: No Lack of Food: Never True Current Housing: I Have Housing Concerned About Future Housing: No Difficulty Paying Gas/Electric Bills: No Difficulty Paying for Meds: No Currently Unemployed: No Education: Associate Degree Difficulty w/ Childcare or Family Care: No Gender identity (if verbalized by the patient): Female Spiritual care concerns: No Comments At the time of my signature, I reviewed and agree with the nursing past medical, surgical, social, and family history. There is no relevant family history pertinent to the patient complaint. Exam Narrative: GENERAL: This is a well-nourished, well-developed adult, in no apparent distress. They are non ill-appearing, nontoxic appearing. Patient is . HEAD: normocephalic, atraumatic. EYES: Sclera clear/white. Conjunctiva normal. Vision is grossly intact. Extraocular movements intact EARS: External ears normal, auditory canals clear and without drainage, TMs normal without perforation. Hearing grossly intact. NOSE: External nose normal with no obvious nasal discharge, nasal turbinates erythematous bilaterally, no rhinorrhea. THROAT: Mucous membranes moist, posterior pharynx erythemic without swelling. Postnasal drip present. Uvula midline. NECK: Neck supple, non-tender without lymphadenopathy, masses or thyromegaly. CARDIOVASCULAR: Regular rate and rhythm without murmurs, gallops, or rubs. RESPIRATORY: Clear to auscultation. Breath sounds equal bilaterally. No wheezes, rales, or rhonchi. GASTROINTESTINAL: Abdomen soft, non-tender, nondistended. Bowel sounds are active. No hepato-splenomegaly, or palpable masses. No guarding. SKIN: warm, Dry, intact with no suspicious lesions or rash, good texture and turgor. NEURO: awake, alert, and oriented to person, place and time. There were no obvious focal neurologic abnormalities. EXTREMITIES: No joint tenderness, effusion, or edema noted. BACK: Nontender without deformity. No CVA tenderness. Course Course Emergency Course: Portions of this record may have been created with voice recognition software Level of Care: Express Care Visit Vital Signs Vital signs: Vital Signs Temperature 99.1 F 06/29/24 16:23 Pulse Rate 101 H 06/29/24 16:23 Respiratory Rate 18 06/29/24 16:23 Blood Pressure 126/65 06/29/24 16:23 Pulse Oximetry 99 06/29/24 16:23 Oxygen Delivery Room Air 06/29/24 16:23 Temperature 99.1 F 06/29/24 16:23 Pulse Rate 101 H 06/29/24 16:23 Respiratory Rate 18 06/29/24 16:23 Blood Pressure 126/65 06/29/24 16:23 Pulse Oximetry 99 06/29/24 16:23 Oxygen Delivery Room Air 06/29/24 16:23 Reviewed MDM - URI/Sore Throat MDM Narrative Medical decision making narrative: Rapid flu, COVID, strep negative. Throat culture pending. Symptoms are likely viral in etiology. Discussed physical exam findings. Advised supportive measures and signs/symptoms to go to the ER. Pt is appropriate for outpt treatment and f/u. Differential Diagnosis Differential diagnosis: Likely upper respiratory infection, viral infection and pharyngitis Lab Data Attestation: I reviewed the patient's lab results. Labs: Lab Results 06/29/24 06/29/24 Range/Units 16:44 16:45 POC Influenza A Ag Negative (Negative) POC Influenza B Ag Negative (Negative) POC SARS CoV-2 Ag Negative (Negative) POC Grp A Strep Screen Negative (Negative) Critical Care Time Critical Care Time Critical Care Time: No Discharge Plan Discharge Clinical Impression: Viral illness Patient Disposition: Home Condition: Stable Instructions: Antibiotic Form, Viral Syndrome (ED) Additional Instructions: Your COVID and flu were negative. Your rapid strep swab was negative today at [facility]. You will be notified in a few days if the culture comes back positive for strep, and appropriate antibiotics will be called in for you at that time. Your symptoms are likely due to a viral illness, which is not treated with antibiotics. Viral symptoms can be present for up to 7-14 days. Take Tylenol for fever or pain. You may take Flonase needed for congestion while . You may also take guaifenesin for congestion or operate. Rest and stay hydrated. Follow up with your PCP or OB in 3-5 days if symptoms are not improving. Go to the ER immediately if you develop difficulty breathing, uncontrollable vomiting, he concerns about your , or difficulty swallowing Patient Language: Gambian Prescriptions: No Action ergocalciferol (vitamin D2) 1,250 mcg (50,000 unit) capsule 1,250 mcg PO WEEKLY ferrous sulfate [FeroSul] 325 mg (65 mg iron) tablet 325 mg PO DAILY Follow-up/Referrals: PHYSICIAN,METABOLIC SPECIALIST [Primary Care Provider] - Stand Alone Forms: Work/School Release IP Time of Disposition: 16:51
== END 2024-06-29 16:57 | disposition home or self-care (01) ==
DX: O98.512 Other viral diseases complicating pregnancy, second trimester (principal); B34.9 Viral infection, unspecified; Z3A.00 Weeks of gestation of pregnancy not specified; Z20.822 Contact with and (suspected) exposure to COVID-19; Z87.891 Personal history of nicotine dependence
CPT/HCPCS: 87081; 87426; 87804; 87880; 99213; G0463

== ENCOUNTER 2024-07-05 14:36 | Observation (INO) | payer OTHER, SELFPAY ==
[2024-07-05] VITALS (7 sets, daily range): BP systolic 99–110; BP diastolic 48–59; PULSE 69–84; BMI 22.1
--- NOTE | 2024-07-05 14:47 | OBADM ---
This patient, Danita Page, admitted to the OB room OB Post 115 for observation. Patient/family oriented to hospital policies and general routines including ID bracelet, bed and alarms, visiting hours, pain management, procedures, bathroom and other care routines, personal items, smoking policy, room service/diet, and visiting hours. Patient/Family are encouraged to report perceived risks to care and to ask questions if they do not understand what they are told or what they should do.
--- OUTSIDE RECORDS SUMMARY | 2024-07-05 14:52 | XMS_ITS | Clinical Summary ---
Author Organization [facility] Address [address] [place] [address] Care Team Providers Care Cleaning Machine Operator Name Role Phone Peyton Vera MD Primary Care Provider [phone] Peyton Vera MD Unavailable [phone] Source Comments [facility],non-owned Affiliates and Associated Physician Practices is amultiple site organization consisting of ambulatory clinics and hospital sitesin [place], [place], [place] and [place]. This disclosure is being madepursuant to the Care Everywhere program and may not contain all information available regarding this patient. Last updated 17.[facility] Allergies No known active allergies Medications * [...] on file Legal Sex Female 2:41 PM ELECTRONIC PREPRESS SYSTEM OPERATOR Gender Identity Not on file Sexual Orientation Not on file Last Filed Vital Signs Vital Sign Reading Time Taken Comments Blood Pressure 108/59 12/28/2018 5:05 PM ELECTRONIC PREPRESS SYSTEM OPERATOR Pulse - - Temperature 36.8 C (98.3 F) 12/28/2018 2:44 PM ELECTRONIC PREPRESS SYSTEM OPERATOR Respiratory Rate 18 12/28/2018 2:44 PM ELECTRONIC PREPRESS SYSTEM OPERATOR Oxygen Saturation 99% 12/28/2018 3:01 PM ELECTRONIC PREPRESS SYSTEM OPERATOR Inhaled Oxygen Concentration - - Weight 54.9 kg (121 lb) 12/28/2018 2:50 PM ELECTRONIC PREPRESS SYSTEM OPERATOR Height 165.1 cm (5' 5 ) 12/28/2018 2:50 PM ELECTRONIC PREPRESS SYSTEM OPERATOR Body Mass Index 20.14 12/28/2018 2:50 PM ELECTRONIC PREPRESS SYSTEM OPERATOR Plan of Treatment Health Maintenance Due [...] patient's age to complete this topic [place] [address] [address] [place] [address] [facility] Advance Directives * Full Code (Latest Code Status on File) Date Activated Date Inactivated Comments 12/28/2018 4:13 PM 12/28/2018 6:25 PM Care Teams Cleaning Machine Operator Relationship Specialty Start Date End Date Peyton Vera MD [address] [place] [address] PCP - General 01/04/19 Peyton Vera MD [address] [place], [place] [id number] Family Medicine 01/04/19
--- OUTSIDE RECORDS SUMMARY | 2024-07-05 14:52 | XMS_ITS | Clinical Summary ---
Author Organization [facility] Address [address] [place] [address] Phone Care Team Providers Care Environmental Sampling Technician Name Role Phone Unavailable Primary Care Provider Unavailabl e Encounters Date Type Department Care Team Description 05/24/2024 External Device Data [facility] ABSTRACTION Provider, Abstract 05/24/2024 External Device Data [facility] ABSTRACTION Provider, Abstract 05/23/2024 12:40 PM CDT - 05/23/2024 11:59 PM CDT Hospital Encounter [facility] Maternal and Health [facility] [address] [place] [address] Perri Cheng MD Discharge Disposition: [...] ARZATE Study Date: 05/23/2024 12:57pm Pat. NO: [id number] Referring MD: PERRI CHENG MD Site: [place] Clinical Director: Samara Betancur RDMS : 1995 Age: 28 ----- INDICATION ----- Anatomy Survey Anxiety, Maternal Screening, Other Specified G2 loss @ 20 weeks CODING ----- Diagnoses Z3A.19: Weeks of gestation Z36.89: Encounter to establish gestational age using ultrasound O99.342: Other mental disorders complicating Z36.3: Encounter for screening for malformations Procedures 45287: Ultrasound, uterus, real time with image documentation, [...] 0 lb 10 oz EFW by Hadlock ([id number]) Head / Face / Neck Biometry: Truss Designer 4.8 mm CM 3.6 mm 12% Nicolaides [...] view. RVOT view. LVOT view. 3-vessel view. 5-nzzmdw-rlsfetj view. Situs. Aortic arch view. Ductal arch [...] and date of were verified by the mail opener before the exam IMPRESSION ----- 1. Single [...] Pat. Name:Jluis ARZATE Date:05/23/2024 12:57pm Pat. NO: [id number] MD:PERRI CHENG [facility]Sam[facility] Betancur RDMS :1995Age:28 ----- INDICATION ----- Anatomy Survey Anxiety, Maternal Screening, Other Specified G2 loss @ 20 weeks CODING ----- Diagnoses Z3A.19: Weeks of gestation Z36.89: Encounter to establish gestational ageusing ultrasound O99.342: Other mental disorders complicatingpregnancy Z36.3: Encounter for screening formalformations Procedures 55461: Ultrasound, uterus, real time withimage documentation, and maternal evaluation plus detailed anatomic examination,transabdominal approach HISTORY ----- OB History 5. Para 3 Tavares children born living (T) 3. Stillbirths1 T3L3 MATERNAL ASSESSMENT ----- Physical Exam Weight 59 kg. BMI 21.63 kg/m METHOD ----- Transabdominal ultrasound examination ----- [place] . Number of fetuses: 1 DATING ----- Method of dating:based on stated TITUS GA by prior [id number] w + 4 d TITUS by prior [...] 0 lb 10 oz EFW by Hadlock ([id number]) Head / Face / Neck Biometry: Truss Designer 4.8 mm CM 3.6 mm 12%Nicolaides Outer [...] 4-chamber view. RVOT view. LVOT view. 3-vesselview. 8-xctrhm-wculjvn view. Situs. Aortic arch view. Ductal arch [...] and date of were verified by the mail opener beforethe exam IMPRESSION ----- 1. Single living [...] Last 3 Months Insurance [place] [employer] [facility] Address: [address] [address]
--- OUTSIDE RECORDS SUMMARY | 2024-07-05 14:52 | XMS_ITS | Encounter Summary ---
Author Organization [facility] Address [address] [place] [address] Care Team Providers Care Retail Service Lead Merchandiser Name Role Phone Peyton Vera MD Primary Care Provider [phone] Peyton Vera MD Unavailable [phone] Encounter Details Date Type Department Care Team (Late st Contact Info) Description 01/10/2019 Lab Requisition [facility] Care Pathology Lab [address] [place] [address] Melissa Brown MD [address] [place] [address] Illness, unspecified Social History Tobacco Use Types [...] on file Legal Sex Female 2:41 PM TYPE DISK QUALITY CONTROL SUPERVISOR Gender Identity Not on file Sexual Orientation [...] Comments AUTOPSY ([facility]) Routine 01/10/2019 10:42 AM TYPE DISK QUALITY CONTROL SUPERVISOR Illness, unspecified documented in this encounter Results * AUTOPSY ([facility]) (01/10/2019 10:42 AM TYPE DISK QUALITY CONTROL SUPERVISOR) Case Report Autopsy Report Case: [id number] Authorizing Provider: Melissa Brown MD Ordering Provider: Melissa rBown MD Ordering Location: [facility] Care Pathology Lab Pathologist: Pritesh Benjamin MD Specimen: Autopsy 0 7:10 PM TYPE DISK QUALITY CONTROL SUPERVISOR [facility] PATHOLOGY LAB FINAL ANATOMIC DIAGNOSES I. [...] cord ) II. 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 Normal whole genome chromosome SNP microarray analysis The interpretation of this case is performed by [facility] at [facility], [address] [place] [id number]. 0 7:10 PM [facility] PATHOLOGY LAB Clinical History Barry Page, also known as Clement Wheeler, was stillborn to Bri [place] on 01/06/19 at 20 weeks' gestation. Delivery occurred at [facility] ([address] [place] [address]). Ms. Page, a 23-year-old woman who had [...] mother, and the body was transported to [facility] Department of Pathology. An autopsy was begun on 01/10/19. Cytogenetic analysis of placental tissue was performed by [facility] ([address] [facility] [address], ) and showed a normal female karyotype (46,XX); additionally, whole genome chromosome SNP microarray (Reveal) analysis was normal. For additional details, see [facility] report on specimen [id number] ([facility] Specimen Number [id number]). 0 7:10 PM TYPE DISK QUALITY CONTROL SUPERVISOR [facility] PATHOLOGY LAB EXTERNAL EXAMINATION Normal expected (NE) values represent means or means +/- one standard deviation for stillborn at 20 weeks' gestation. Development: Extreme prematurity Nourishment: Thin Weight: 186 g NE: 313 g +/- 139 g [place]-Heel Length: 25 cm NE: 24.9 +/- 2.3 g [place]-Rump Length: 17 cm NE: 18 cm +/- [...] Needle Puncture Castaneda: None 0 7:10 PM TYPE DISK QUALITY CONTROL SUPERVISOR [facility] PATHOLOGY LAB INTERNAL EXAMINATION Normal expected [...] and glistening withno focal lesions MEDIASTINUM: Thymus: [place]-multani Weight: 0.27 g NE: 0.4 g +/- [...] and glistening with no focal lesions Color: [place] Consistency: Rubbery Crepitus: Absent Bronchi: Patent Vessels: [...] NE: 1.3 g +/- 0.6 g Color: [place]-orange Shape: Pyramidal Consistency: Soft Cut Surfaces: Unremarkable [...] Bones: Unremarkable Sternum: Unremarkable SKULL: Primary Incision: Ugzjvme-oi-kcdabc d Symmetry: Symmetrical Sutures: Overlapping Fontanelles: Anterior [...] EXAMINATION [based on gross examination performed at [facility] as case [id number]] Received fresh is a fragmented ovoid placenta [...] placental disc is collected for cytogenetic analysis. sections are submitted as B1 through B5. 0 7:10 PM [facility] PATHOLOGY LAB Microscopic Description 13 H&E. CARDIOVASCULAR SYSTEM: Sections of the aorta show passive congestion (of the vasa vasorum) and mild autolysis. Sections of the right and left ventricular ritter show moderate autolysis (consistent with ajfsg-xp-ecialoi y interval of 1-2 days). RESPIRATORY SYSTEM: Sections of the larynx and trachea show passive congestion and mild autolysis (consistent with qbmis-wd-ekrjgbi y interval of less than 7 days). Sections of the lungs show passive congestion, mild autolysis (consistent with udzvj-nz-jcupxls y interval of less than 4 days), and canalicular phase of development (appropriate for gestational age). THYMUS: Sections of thymus show mild autolysis, preservation of the corticmedullary junction, and foci of extramedullary hematopoiesis. THYROID: Sections of thyroid show passive congestion and mild autolysis. ALIMENTARY CANAL and MESENTERY: Sections of the alimentary canal show varying degrees (mild to moderate) of mucosal autolysis (consistent with onxfc-ah-pekzskn y interval of less than 1 week); ganglia are present in submucosal and myenteric plexuses throughout the gut. Sections of mesentery show passive congestion and mild autolysis. HEPATOBILIARY SYSTEM: A section of liver shows mild autolysis (consistent with xqnqi-zy-shjuwsg y interval of more than 1 day and less than 4 days) and widespread extramedullary hematopoiesis. PANCREAS: Sections of the pancreas show moderate autolysis. ADRENALS: Sections of the adrenals show mild autolysis (consistent with gwkfx-pf-wilfyqj y interval of less than 7 days), preservation of the cortex (appropriate for gestational age), and foci of extramedullary hematopoiesis. GENITOURINARY SYSTEM: Sections of uterus and ovaries show mild autolysis. Sections of the kidneys show preservation of the nephrogenic zone (appropriate for gestational age) and mild autolysis (consistent with iuyhf-tk-kszibql y interval of more than 4 hours [...] architecture. PLACENTA and UMBILICAL CORD (5 H&E, [facility] case [id number]): Sections of the membranes are unremarkable. Sections [...] chorionic villi with intravascular karyorrhexis (consistent with fmmmc-lb-oarppvj y interval of more than 6 hours), foci of villous stromal-vascular karyorrhexis, and retroplacental hematoma. 0 7:10 PM TYPE DISK QUALITY CONTROL SUPERVISOR [facility] PATHOLOGY LAB CLINICOPATHOLOGIC CORRELATION Autopsy findings included a macerated female fetus with growth parameters appropriate for gestational age and slightly abnormal facies (slightly upslanting palpebral fissures). Based on criteria developed by Genest et al (1), the interval between demise and delivery is estimated as 1-2 days. Examination of the placenta ([facility] case [id number]) showed evidence of vascular malperfusion (chorionic plate thrombosis and villous stromal-vascular karyorrhexis), suggesting the possibility of blood flow obstruction; however, such changes may also be attributable to involutional or degenerative changes following demise (2). Cytogenetic analysis of placental tissue (performed by [facility]) showed a normal female karyotype (46,XX) with normal whole genome chromosome SNP microarray analysis (for additional details, see [facility] report on specimen [id number]). References 1. Andrews TYLER, Clarence CALLAHAN, Naga LITTLE. Estimating the time of in stillborn fetuses: I. Histologic evaluation of organs; an autopsy study of 129 stillborns. Obstet Gynecol 80(4):575-584, 1991. 2. Alisson TY, Yehuda EE, Zhen I, et al. Sampling and definitions of placental lesions: [employer] consensus statement. Arch Pathol Lab Med 140:698-713, 2016. 0 7:10 PM TYPE DISK QUALITY CONTROL SUPERVISOR [facility] Date of 01/06/19 0 7:10 PM TYPE DISK QUALITY CONTROL SUPERVISOR [facility] Date of Autopsy 01/10/19 0 7:10 PM TYPE DISK QUALITY CONTROL SUPERVISOR [facility] Client Frandy 0 7:10 PM TYPE DISK QUALITY CONTROL SUPERVISOR U PATHOLOGY LAB Embedded Images 0 7:10 PM TYPE DISK QUALITY CONTROL SUPERVISOR U PATHOLOGY LAB Pathology/Cytolo gy AUTOPSY EXAMINATION / Unknown 01/10/2019 10:42 AM TYPE DISK QUALITY CONTROL SUPERVISOR 01/10/2019 10:42 AM TYPE DISK QUALITY CONTROL SUPERVISOR Narrative [facility] PATHOLOGY LAB - 04/07/2019 7:10 PM TYPE DISK QUALITY CONTROL SUPERVISOR A previously reported component [Component Name] is no longer reported. us Melissa Brown MD LAB - PATHOLOGY/CYTOLOGY [facility] [place] Final Result [facility] PATHOLOGY LAB [address] [phone] documented in this encounter Visit Diagnoses Diagnosis Illness, unspecified documented in this encounter Care Teams Retail Service Lead Merchandiser Relationship Specialty Start Date End Date Peyton Vera MD [address] [place] [id number] PCP - General 01/04/19 Peyton Vera MD [address] [facility] [address] [place], [place] [phone] Family Medicine 01/04/19 documented as of this encounter
--- OUTSIDE RECORDS SUMMARY | 2024-07-05 14:52 | XMS_ITS | Clinical Summary ---
Author Organization [facility] Address [address] [place] [address] Care Team Providers Care Diving Board Assembler Name Role Phone Unavailable Primary Care Provider [...]
--- OUTSIDE RECORDS SUMMARY | 2024-07-05 14:52 | XMS_ITS | Referral Summary ---
Author Organization [facility] Address [address] [place] [address] Care Team Providers Care Balance Wheel Hand Filer Name Role Phone Daya Hoskins NP Primary Care Provider Allergies No known active allergies Social History Tobacco Use Types Packs/Day Years Used Date Smoking Tobacco: Never Assessed Personal Safety Answer Date Recorded Getting School Help Needed Denies 02/14 Comments Unknown Sex and Gender Information Value Date Recorded Sex Assigned at Not on file Legal Sex Female 7:27 PM CURB SETTER Gender Identity Not on file Sexual Orientation Not on file Last Filed Vital Signs Vital Sign Reading Time Taken Comments Blood Pressure 116/84 04/23/2022 4:44 PM CURB SETTER Pulse 64 04/23/2022 4:44 PM CURB SETTER Temperature 36.6 C (97.8 F) 04/23/2022 12:59 PM CURB SETTER Respiratory Rate 18 04/23/2022 4:44 PM CURB SETTER Oxygen Saturation 99% 04/23/2022 4:44 PM CURB SETTER Inhaled Oxygen Concentration - - Weight 57 kg (125 lb 10.6 oz) 04/23/2022 12:59 P M CURB SETTER Height 165.1 cm (5' 5 ) 04/23/2022 12:59 PM CURB SETTER Body Mass Index 20.91 04/23/2022 12:59 PM CURB SETTER Plan of Treatment Not on file Insurance [facility] Care Teams Balance Wheel Hand Filer Relationship Specialty Start Date End Date Daya Hoskins, DETECTIVE INVESTIGATOR [address] [address] PCP - General 12/27/18
--- OUTSIDE RECORDS SUMMARY | 2024-07-05 14:52 | XMS_ITS | Clinical Summary ---
Author Organization [facility] Address [address] [place] [address] Care Team Providers Care C D Stripper Name Role Phone Daya Hoskins NP Primary Care Provider Allergies No known active allergies Social History Tobacco Use Types Packs/Day Years Used Date Smoking Tobacco: Never Assessed Personal Safety Answer Date Recorded Getting School Help Needed Denies 02/14 Comments Unknown Sex and Gender Information Value Date Recorded Sex Assigned at Not on file Legal Sex Female 7:27 PM VAMP PRESSER Gender Identity Not on file Sexual Orientation Not on file Obstetrics History Para Term AB IAB SAB Ectopic Multiple Livin g Live Births 1 Date Outcome GA Total Labor Labor/2nd/3rd Weight Sex Type Anes PTL Shalini A1 A5 Name Clin Last Filed Vital Signs Vital Sign Reading Time Taken Comments Blood Pressure 116/84 04/23/2022 4:44 PM VAMP PRESSER Pulse 64 04/23/2022 4:44 PM VAMP PRESSER Temperature 36.6 C (97.8 F) 04/23/2022 12:59 PM VAMP PRESSER Respiratory Rate 18 04/23/2022 4:44 PM VAMP PRESSER Oxygen Saturation 99% 04/23/2022 4:44 PM VAMP PRESSER Inhaled Oxygen Concentration - - Weight 57 kg (125 lb 10.6 oz) 04/23/2022 12:59 P M VAMP PRESSER Height 165.1 cm (5' 5 ) 04/23/2022 12:59 PM VAMP PRESSER Body Mass Index 20.91 04/23/2022 12:59 PM VAMP PRESSER Plan of Treatment Health Maintenance Due Date [...] patient's age to complete this topic Insurance [facility] Care Teams C D Stripper Relationship Specialty Start Date End Date Daya Hoskins, DOORSHAKER [address] [place] [id number] PCP - General 12/27/18
[2024-07-05 16:05] LABS: Add Urine Microscopic? YES; Appearance Urine Cloudy (Clear); Bacteria Urine 3+ /hpf; Bilirubin Urine Negative (Negative); Blood Urine Non-Hemolyzed Trace (Negative); Color Urine Dark Yellow (Yellow); Glucose Urine UA Negative (Negative); Ketones Urine 1+ mg/dL (Negative); Leukocyte Esterase Ur 1+ LEU/UL (Negative); Nitrate Urine Negative (Negative); Non Pathogenic Casts 0-2; Protein Urine Trace mg/dL (Negative); Specific Grav Ur 1.026 (1.001-1.035); Squamous Epithelial Cell Urine Moderate /hpf (Few); pH Urine 7.5 (5.0-9.0)
--- NOTE | 2024-07-10 14:05 | P.PNOB_ITS ---
OB - Triage/Final Diagnosis Visit Information Reason for evaluation: threatened labor Comments/Additional reasons for admission: I have assessed the risk for this patient, Danita Page, and determined that she would benefit from observation care. Evaluation Laboratory results: Laboratory Tests 07/05/24 15:51 Urine Color Dark yellow Urine Appearance Cloudy H Urine pH 7.5 Ur Specific [place] 1.026 Urine Protein Trace Urine Glucose (UA) Negative Urine Ketones 1+ H Ur Blood (Man) Non-hemolyzed trace H Urine Nitrate Negative Urine Bilirubin Negative Urine Urobilinogen 1.0 Leukocyte Esterase Rfl 1+ H Urine RBC 11-20 H Urine WBC 6-10 H Ur Squamous Epith Cells Moderate Urine Bacteria 3+ H Urine Casts 0-2
== END 2024-07-05 17:12 | disposition home or self-care (01) ==
PROVIDERS: Admitting Provider Obstetrics & Gynecology Gynecology; Visit Provider Obstetrics & Gynecology Gynecology
DX: O47.02 False labor before 37 completed weeks of gestation, second trimester (principal); Z3A.25 25 weeks gestation of pregnancy
CPT/HCPCS: 81001; G0378; G0379

== ENCOUNTER 2024-07-14 15:55 | Outpatient (CLI) | payer OTHER, SELFPAY ==
--- OUTSIDE RECORDS SUMMARY | 2024-07-14 16:00 | XMS_ITS | Referral Summary ---
Author Organization [facility] Address [address] [place] [address] Care Team Providers Care Procedures Rn Name Role Phone Daya Hoskins NP Primary Care Provider Allergies No known active allergies Social History Tobacco Use Types Packs/Day Years Used Date Smoking Tobacco: Never Assessed Personal Safety Answer Date Recorded Getting School Help Needed Denies 02/14 Comments Unknown Sex and Gender Information Value Date Recorded Sex Assigned at Not on file Legal Sex Female 7:27 PM PROFESSIONAL BENEFITS SALES CONSULTANT Gender Identity Not on file Sexual Orientation Not on file Last Filed Vital Signs Vital Sign Reading Time Taken Comments Blood Pressure 116/84 04/23/2022 4:44 PM PROFESSIONAL BENEFITS SALES CONSULTANT Pulse 64 04/23/2022 4:44 PM PROFESSIONAL BENEFITS SALES CONSULTANT Temperature 36.6 C (97.8 F) 04/23/2022 12:59 PM PROFESSIONAL BENEFITS SALES CONSULTANT Respiratory Rate 18 04/23/2022 4:44 PM PROFESSIONAL BENEFITS SALES CONSULTANT Oxygen Saturation 99% 04/23/2022 4:44 PM PROFESSIONAL BENEFITS SALES CONSULTANT Inhaled Oxygen Concentration - - Weight 57 kg (125 lb 10.6 oz) 04/23/2022 12:59 P M PROFESSIONAL BENEFITS SALES CONSULTANT Height 165.1 cm (5' 5 ) 04/23/2022 12:59 PM PROFESSIONAL BENEFITS SALES CONSULTANT Body Mass Index 20.91 04/23/2022 12:59 PM PROFESSIONAL BENEFITS SALES CONSULTANT Plan of Treatment Not on file Insurance [facility] Care Teams Procedures Rn Relationship Specialty Start Date End Date Daya Hoskins, MEDICAL DEVICE [address] [address] PCP - General 12/27/18
--- OUTSIDE RECORDS SUMMARY | 2024-07-14 16:00 | XMS_ITS | Clinical Summary ---
Author Organization [facility] Address [address] [place] [address] Phone Care Team Providers Care Nitro Man Name Role Phone Unavailable Primary Care Provider Unavailabl e Encounters Date Type Department Care Team Description 05/24/2024 External Device Data [facility] ABSTRACTION Provider, Abstract 05/24/2024 External Device Data [facility] ABSTRACTION Provider, Abstract 05/23/2024 12:40 PM CDT - 05/23/2024 11:59 PM CDT Hospital Encounter [facility] Maternal and Health [facility] [address] [place] [address] Perri Cheng MD Discharge Disposition: [...] ARZATE Study Date: 05/23/2024 12:57pm Pat. NO: [id number] Referring MD: PERRI CHENG MD Site: [facility] Interchange Agent: Samara Betancur RDMS : 1995 Age: 28 ----- INDICATION ----- Anatomy Survey Anxiety, Maternal Screening, Other Specified G2 loss @ 20 weeks CODING ----- Diagnoses Z3A.19: Weeks of gestation Z36.89: Encounter to establish gestational age using ultrasound O99.342: Other mental disorders complicating Z36.3: Encounter for screening for malformations Procedures [id number]: Ultrasound, uterus, real time with image documentation, [...] 0 lb 10 oz EFW by Hadlock ([id number]) Head / Face / Neck Biometry: Diversity Manager 4.8 mm CM 3.6 mm 12% Nicolaides [...] view. RVOT view. LVOT view. 3-vessel view. 3-slpumx-mxthtex view. Situs. Aortic arch view. Ductal arch [...] and date of were verified by the hosiery mender before the exam IMPRESSION ----- 1. Single [...] Pat. Name:Jluis ARZATE Date:05/23/2024 12:57pm Pat. NO: [id number] MD:PERRI CHENG [facility]Samara Betancur RDMS :1995Age:28 ----- INDICATION ----- Anatomy Survey Anxiety, Maternal Screening, Other Specified G2 loss @ 20 weeks CODING ----- Diagnoses Z3A.19: Weeks of gestation Z36.89: Encounter to establish gestational ageusing ultrasound O99.342: Other mental disorders complicatingpregnancy Z36.3: Encounter for screening formalformations Procedures [id number]: Ultrasound, uterus, real time withimage documentation, and maternal evaluation plus detailed anatomic examination,transabdominal approach HISTORY ----- OB History 5. Para 3 Tavares children born living (T) 3. Stillbirths1 T3L3 MATERNAL ASSESSMENT ----- Physical Exam Weight 59 kg. BMI 21.63 kg/m METHOD ----- Transabdominal ultrasound examination ----- Tavares . Number of fetuses: 1 DATING ----- Method of dating:based on stated TITUS GA by prior [id number] w + 4 d TITUS by prior [...] 0 lb 10 oz EFW by Hadlock ([id number]) Head / Face / Neck Biometry: Diversity Manager 4.8 mm CM 3.6 mm 12%Nicolaides Outer [...] 4-chamber view. RVOT view. LVOT view. 3-vesselview. 0-dflmwq-stachvf view. Situs. Aortic arch view. Ductal arch [...] and date of were verified by the hosiery mender beforethe exam IMPRESSION ----- 1. Single living [...]
--- OUTSIDE RECORDS SUMMARY | 2024-07-14 16:00 | XMS_ITS | Clinical Summary ---
Author Organization [facility] Address [address] [place] [address] Care Team Providers Care Lna Name Role Phone Daya Hoskins NP Primary Care Provider Allergies No known active allergies Social History Tobacco Use Types Packs/Day Years Used Date Smoking Tobacco: Never Assessed Personal Safety Answer Date Recorded Getting School Help Needed Denies 02/14 Comments Unknown Sex and Gender Information Value Date Recorded Sex Assigned at Not on file Legal Sex Female 7:27 PM CUTTER PLASTICS ROLLS Gender Identity Not on file Sexual Orientation Not on file Obstetrics History Para Term AB IAB SAB Ectopic Multiple Livin g Live Births 1 Date Outcome GA Total Labor Labor/2nd/3rd Weight Sex Type Anes PTL Shalini A1 A5 Name Clin Last Filed Vital Signs Vital Sign Reading Time Taken Comments Blood Pressure 116/84 04/23/2022 4:44 PM CUTTER PLAST[employer] ROLLS Pulse 64 04/23/2022 4:44 PM CUTTER PLAST[employer] ROLLS Temperature 36.6 C (97.8 F) 04/23/2022 12:59 PM CUTTER PLAST[employer] ROLLS Respiratory Rate 18 04/23/2022 4:44 PM CUTTER PLASTICS ROLLS Oxygen Saturation 99% 04/23/2022 4:44 PM CUTTER PLAST[employer] ROLLS Inhaled Oxygen Concentration - - Weight 57 kg (125 lb 10.6 oz) 04/23/2022 12:59 P M C[employer]TER PLAST[employer] ROLLS Height 165.1 cm (5' 5 ) 04/23/2022 12:59 PM CUTTER PLASTICS ROLLS Body Mass Index 20.91 04/23/2022 12:59 PM CUTTER PLASTICS ROLLS Plan of Treatment Health Maintenance Due Date [...] patient's age to complete this topic Insurance [facility] Care Teams Lna Relationship Specialty Start Date End Date Daya Hoskins, CLOTH SPONGER [address] [place] [id number] PCP - General 12/27/18
--- OUTSIDE RECORDS SUMMARY | 2024-07-14 16:00 | XMS_ITS | Clinical Summary ---
Author Organization [facility] Address [address] [facility] [place] [address] Care Team Providers Care Vegetable Farming Supervisor Name Role Phone Peyton Vera MD Primary Care Provider [phone] Peyton Vrea MD Unavailable [phone] Source Comments [facility],non-owned Affiliates and Associated Physician Practices is amultiple site organization consisting of ambulatory clinics and hospital sitesin [place], [place], [place] and [place]. This disclosure is being madepursuant to the Care Everywhere program and may not contain all information available regarding this patient. Last updated 17.[facility] Allergies No known active allergies Medications * [...] on file Legal Sex Female 2:41 PM TRAFFIC ADMINISTRATOR Gender Identity Not on file Sexual Orientation Not on file Last Filed Vital Signs Vital Sign Reading Time Taken Comments Blood Pressure 108/59 12/28/2018 5:05 PM TRAFFIC ADMINISTRATOR Pulse - - Temperature 36.8 C (98.3 F) 12/28/2018 2:44 PM TRAFFIC ADMINISTRATOR Respiratory Rate 18 12/28/2018 2:44 PM TRAFFIC ADMINISTRATOR Oxygen Saturation 99% 12/28/2018 3:01 PM TRAFFIC ADMINISTRATOR Inhaled Oxygen Concentration - - Weight 54.9 kg (121 lb) 12/28/2018 2:50 PM TRAFFIC ADMINISTRATOR Height 165.1 cm (5' 5 ) 12/28/2018 2:50 PM TRAFFIC ADMINISTRATOR Body Mass Index 20.14 12/28/2018 2:50 PM TRAFFIC ADMINISTRATOR Plan of Treatment Health Maintenance Due Date [...] patient's age to complete this topic [place] [address] [place] [address] [facility] Advance Directives * Full Code (Latest Code Status on File) Date Activated Date Inactivated Comments 12/28/2018 4:13 PM 12/28/2018 6:25 PM Care Teams Vegetable Farming Supervisor Relationship Specialty Start Date End Date Peyton Vera MD [address] [place] [address] PCP - General 01/04/19 Peyton Vera MD [address] [place], [place] [phone] Family Medicine 01/04/19
--- OUTSIDE RECORDS SUMMARY | 2024-07-14 16:00 | XMS_ITS | Encounter Summary ---
Author Organization [facility] Address [address] [place] [address] Care Team Providers Care Razor Grinder Name Role Phone Peyton Vera MD Primary Care Provider [phone] Peyton Vera MD Unavailable [phone] Encounter Details Date Type Department Care Team (Late st Contact Info) Description 01/10/2019 Lab Requisition [facility] Care Pathology Lab [address] [place] [address] Melissa Brown MD [address] [place] [address] Illness, unspecified Social History Tobacco Use Types [...] on file Legal Sex Female 2:41 PM REVIT DRAFTER Gender Identity Not on file Sexual Orientation [...] Comments AUTOPSY (SLU) Routine 01/10/2019 10:42 AM REVIT DRAFTER Illness, unspecified documented in this encounter Results * AUTOPSY (SLU) (01/10/2019 10:42 AM REVIT DRAFTER) Case Report Autopsy Report Case: [id number] Authorizing Provider: Melissa Brown MD Ordering Provider: Melissa Brown MD Ordering Location: [facility] Care Pathology Lab Pathologist: Pritesh Benjamin MD Specimen: Autopsy 0 7:10 PM REVIT DRAFTER U PATHOLOGY LAB FINAL ANATOMIC DIAGNOSES I. 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 Normal whole genome chromosome SNP microarray analysis The interpretation of this [facility], [address] [place] [address]. 0 7:10 PM REVIT DRAFTER [facility] PATHOLOGY LAB at [address] REVIT DRAFTER Clinical History Barry Page, also known as Clement Wheeler, was stillborn to Bri Ben [place] on 01/06/19 at 20 weeks' gestation. Delivery occurred at [facility] ([address] [place] [address]). Ms. Page, a 23-year-old woman who had [...] mother, and the body was transported to [facility] Department of Pathology. An autopsy was begun on 01/10/19. Cytogenetic analysis of placental tissue was performed by [facility] ([address] [place] [address], ) and showed a normal female karyotype (46,XX); additionally, whole genome chromosome SNP microarray (Reveal) analysis was normal. For additional details, see [employer] [facility] report on specimen [id number] (LCLS Specimen Number [id number]). 0 7:10 PM REVIT DRAFTER [facility] PATHOLOGY LAB EXTERNAL EXAMINATION Normal expected (NE) values represent means or means +/- one standard deviation for stillborn at 20 weeks' gestation. Development: Extreme prematurity Nourishment: Thin Weight: 186 g NE: 313 g +/- 139 g [place]-Heel Length: 25 cm NE: 24.9 +/- 2.3 g [place]-Rump Length: 17 cm NE: 18 cm +/- [...] Needle Puncture Castaneda: None 0 7:10 PM REVIT DRAFTER [facility] PATHOLOGY LAB INTERNAL EXAMINATION Normal [...] and glistening withno focal lesions MEDIASTINUM: Thymus: [place]-multani Weight: 0.27 g NE: 0.4 g +/- [...] and glistening with no focal lesions Color: [place] Consistency: Rubbery Crepitus: Absent Bronchi: Patent Vessels: [...] NE: 1.3 g +/- 0.6 g Color: [place]-orange Shape: Pyramidal Consistency: Soft Cut Surfaces: Unremarkable [...] Bones: Unremarkable Sternum: Unremarkable SKULL: Primary Incision: Pdykjcy-av-zmonvf d Symmetry: Symmetrical Sutures: Overlapping Fontanelles: Anterior [...] [facility] [id number]] Received fresh is a fragmented ovoid placenta [...] placental disc is collected for cytogenetic analysis. Pinsetter Mechanic Automatic sections are submitted as B1 through B5. 0 7:[address] [facility] PATHOLOGY LAB Microscopic Description 13 H&E. CARDIOVASCULAR SYSTEM: Sections of the aorta show passive congestion (of the vasa vasorum) and mild autolysis. Sections of the right and left ventricular ritter show moderate autolysis (consistent with hcvrh-wh-kackfrj y interval of 1-2 days). RESPIRATORY SYSTEM: Sections of the larynx and trachea show passive congestion and mild autolysis (consistent with nkoxk-rr-ixalbce y interval of less than 7 days). Sections of the lungs show passive congestion, mild autolysis (consistent with stjiy-tg-iwvzfrd y interval of less than 4 days), and canalicular phase of development (appropriate for gestational age). THYMUS: Sections of thymus show mild autolysis, preservation of the corticmedullary junction, and foci of extramedullary hematopoiesis. THYROID: Sections of thyroid show passive congestion and mild autolysis. ALIMENTARY CANAL and MESENTERY: Sections of the alimentary canal show varying degrees (mild to moderate) of mucosal autolysis (consistent with biort-bl-wgrrvxh y interval of less than 1 week); ganglia are present in submucosal and myenteric plexuses throughout the gut. Sections of mesentery show passive congestion and mild autolysis. HEPATOBILIARY SYSTEM: A section of liver shows mild autolysis (consistent with dojoh-lt-tdqdceb y interval of more than 1 day and less than 4 days) and widespread extramedullary hematopoiesis. PANCREAS: Sections of the pancreas show moderate autolysis. ADRENALS: Sections of the adrenals show mild autolysis (consistent with tvodo-ym-jxdfwdp y interval of less than 7 days), preservation of the cortex (appropriate for gestational age), and foci of extramedullary hematopoiesis. GENITOURINARY SYSTEM: Sections of uterus and ovaries show mild autolysis. Sections of the kidneys show preservation of the nephrogenic zone (appropriate for gestational age) and mild autolysis (consistent with hyuwr-tq-atmdzca y interval of more than 4 hours [...] [facility] case [id number]): Sections of the membranes are unremarkable. Sections [...] chorionic villi with intravascular karyorrhexis (consistent with fncgs-xd-ypttjdh y interval of more than 6 hours), foci of villous stromal-vascular karyorrhexis, and retroplacental hematoma. 0 7:[address] [facility] PATHOLOGY LAB CLINICOPATHOLOGIC CORRELATION Autopsy findings included a macerated female fetus with growth parameters appropriate for gestational age and slightly abnormal facies (slightly upslanting palpebral fissures). Based on criteria developed by Genescruz et al (1), the interval between demise and delivery is estimated as 1-2 days. Examination of the placenta ([facility] case [id number]) showed evidence of vascular malperfusion (chorionic plate thrombosis and villous stromal-vascular karyorrhexis), suggesting the possibility of blood flow obstruction; however, such changes may also be attributable to involutional or degenerative changes following demise (2). Cytogenetic analysis of placental tissue (performed by [facility]) showed a normal female karyotype (46,XX) with normal whole genome chromosome SNP microarray analysis (for additional details, see [facility] report on specimen [id number]). References 1. Andrews TYLER, Clarence CALLAHAN, Naga LITTLE. Estimating the time of in stillborn fetuses: I. Histologic evaluation of organs; an autopsy study of 129 stillborns. Obstet Gynecol 80(4):575-584, 1991. 2. Alisson TY, Yehuda EE, Zhen I, et al. Sampling and definitions of placental lesions: [place] [employer] consensus statement. Arch Pathol Lab Med 140:698-713, 2016. 0 7:10 PM REVIT DRAFTER [facility] Date of 01/06/19 0 7:10 PM REVIT DRAFTER [facility] Date of Autopsy 01/10/19 0 7:10 PM REVIT DRAFTER [facility] Client Frandy 0 7:10 PM REVIT DRAFTER U PATHOLOGY LAB Embedded Images 0 7:10 PM REVIT DRAFTER U PATHOLOGY LAB Pathology/Cytolo gy AUTOPSY EXAMINATION / Unknown 01/10/2019 10:42 AM REVIT DRAFTER 01/10/2019 10:42 AM REVIT DRAFTER Narrative U PATHOLOGY LAB - 04/07/2019 7:10 PM REVIT DRAFTER A previously reported component [Component Name] is no longer reported. us Melissa Brown MD LAB - PATHOLOGY/CYTOLOGY HUGO COPELAND Final Result [facility] PATHOLOGY LAB [address] [phone] documented in this encounter Visit Diagnoses Diagnosis Illness, unspecified documented in this encounter Care Teams Razor Grinder Relationship Specialty Start Date End Date Peyton Vera MD [address] [place] [phone] PCP - General 01/04/19 Peyton Vera MD [address] [facility] [address] [place], [place] [id number] Family Medicine 01/04/19 documented as of this encounter
[2024-07-14 16:18] VITALS: BP 104/50; PULSE 75
[2024-07-14 16:20] VITALS: BMI 22.1
--- NOTE | 2024-07-14 16:20 | OBADM ---
This patient, Danita Page, admitted to the OB room OB Post 117 for observation. Patient/family oriented to hospital policies and general routines including ID bracelet, bed and alarms, visiting hours, pain management, procedures, bathroom and other care routines, personal items, smoking policy, room service/diet, and visiting hours. Patient/Family are encouraged to report perceived risks to care and to ask questions if they do not understand what they are told or what they should do.
[2024-07-14 16:34] LABS: OBXCEM ROM Plus Negative (Negative)
--- NOTE | 2024-07-14 16:48 | PC.NURSE ---
notified [facility] of pt arrival. pt c/o of leaking fluid. ROM + performed and was negative. NST appropriate for gestational age. Ok to d/c home.
[2024-07-14 16:51] VITALS: BP 104/50; PULSE 75
== END 2024-07-14 16:53 | disposition home or self-care (01) ==
LOC: ANHOBOP 15:59 → ANHOBPP 16:00
PROVIDERS: Visit Provider Obstetrics & Gynecology Gynecology
DX: O42.90 Premature rupture of membranes, unspecified as to length of time between rupture and onset of labor, unspecified weeks of gestation (principal)
CPT/HCPCS: 59025; 84112; 99199

== ENCOUNTER 2024-08-23 14:00 | Outpatient (CLI) | payer OTHER, SELFPAY ==
--- NOTE | ~2024-08-23 | US_ITS ---
EXAM EXAMINATION: US OB follow up DATE: 08/26/2024 16:13 CDT INDICATION: Prior demise COMPARISON: 03/31/2024 TECHNIQUE: Real-time transabdominal obstetric ultrasound. FINDINGS: There is a single intrauterine gestation in vertex presentation. The placenta is anterior, without previa. No cervical measurement is present on the submitted images. cardiac activity and movement is noted with a heart rate of 153 beats per minute. Amniotic fluid index measures 15.2 cm, within normal limits. The following biometric data were obtained: Biparietal diameter (BPD): 7.8 cm; head circumference (HC): 29.4 cm; abdominal circumference (AC): 26.5 cm; femur length (FL): 6 cm. These measurements are concordant. Estimated weight is 1681 g +/- 252 g, which correlates with the sixth percentile when 10/22/2024 is used as estimated date of delivery. As single measurements, these parameters are each equal to the following estimated gestational ages: BPD: 31 weeks 3 days. HC: 32 weeks 3 days. AC: 30 weeks 4 days. FL: 31 weeks 0 days. estimated gestational age based solely on measurements from this exam is 31 weeks 3 days +/- 2 weeks 1 day. IMPRESSION: Single intrauterine gestation in vertex presentation with cardiac activity identified. Estimated weight correlates with the 6th percentile. Estimated date of delivery is 10/22/2024. Approximate gestational age is 31 weeks and 3 days. Reviewed, dictated and finalized at location A. IMPRESSION: Single intrauterine gestation in vertex presentation with cardiac activit y identified. Estimated weight correlates with the 6th percentile. Estimated date of delivery is 10/22/2024. Approximate gestational age is 31 weeks and 3 days.
--- OUTSIDE RECORDS SUMMARY | 2024-08-23 14:04 | XMS_ITS | Encounter Summary ---
Author Organization [facility] Address [address] [place] [address] Care Team Providers Care Single Stayer Operator Name Role Phone Peyton Vera MD Primary Care Provider [phone] Peyton Vera MD Unavailable [phone] Encounter Details Date Type Department Care Team (Late st Contact Info) Description 01/10/2019 Lab Requisition [facility] Care Pathology Lab [address] [place] [address] Melissa Brown MD [address] [place] [address] Illness, unspecified Social History Tobacco Use Types [...] on file Legal Sex Female 2:41 PM WOOD SETTER Gender Identity Not on file Sexual [...] Comments AUTOPSY (SLU) Routine 01/10/2019 10:42 AM WOOD SETTER Illness, unspecified documented in this encounter Results * AUTOPSY (SLU) (01/10/2019 10:42 AM WOOD SETTER) Case Report Autopsy Report Case: [id number] Authorizing Provider: Melissa Brown MD Ordering Provider: Melissa Brown MD Ordering Location: [facility] Care Pathology Lab Pathologist: Pritesh Benjamin MD Specimen: Autopsy 0 7:10 PM WOOD SETTER U PATHOLOGY LAB FINAL ANATOMIC DIAGNOSES I. [...] Attached umbilical cord with single umbilical artery (two-vessel cord) II. 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 Normal whole genome chromosome SNP microarray analysis The interpretation of this case is performed [facility] at [facility], [address] [place] [address]. 0 7:10 PM WOOD SETTER [facility] PATHOLOGY LAB at [address] WOOD SETTER Clinical History Barry Page, also known as Clement Wheeler, was stillborn to Bri [place] on 01/06/19 at 20 weeks' gestation. Delivery occurred at [facility] ([address] [place] [address]). Ms. Page, a 23-year-old woman who had [...] mother, and the body was transported to [facility] Department of Pathology. An autopsy was begun on 01/10/19. Cytogenetic analysis of placental tissue was performed by [employer] [facility] [facility] ([address] [place] [address], ) and showed a normal female karyotype (46,XX); additionally, whole genome chromosome SNP microarray (Reveal) analysis was normal. For additional details, see [employer] [facility] report on specimen [id number] (LCLS Specimen Number [id number]). 0 7:10 PM WOOD SETTER [facility] PATHOLOGY LAB EXTERNAL EXAMINATION Normal expected (NE) values represent means or means +/- one standard deviation for stillborn at 20 weeks' gestation. Development: Extreme prematurity Nourishment: Thin Weight: 186 g NE: 313 g +/- [address] [place]-Heel Length: 25 cm NE: 24.9 +/- 2.[address] [place]-Rump Length: 17 cm NE: 18 cm +/- [...] Needle Puncture Castaneda: None 0 7:10 PM WOOD SETTER [facility] PATHOLOGY LAB INTERNAL EXAMINATION Normal expected [...] and glistening withno focal lesions MEDIASTINUM: Thymus: [place]-multani Weight: 0.27 g NE: 0.4 g +/- [...] and glistening with no focal lesions Color: [place] Consistency: Rubbery Crepitus: Absent Bronchi: Patent Vessels: [...] NE: 1.3 g +/- 0.6 g Color: [place]-orange Shape: Pyramidal Consistency: Soft Cut Surfaces: Unremarkable [...] Bones: Unremarkable Sternum: Unremarkable SKULL: Primary Incision: Ifbqrts-zj-zrhten d Symmetry: Symmetrical Sutures: Overlapping Fontanelles: Anterior [...] EXAMINATION [based on gross examination performed at [facility] as case [id number]] Received fresh is a fragmented ovoid placenta [...] placental disc is collected for cytogenetic analysis. Tracer Bullet Charging Machine Operator sections are submitted as B1 through B5. 0 7:10 PM [facility]3] PATHOLOGY LAB Microscopic Description 13 H&E. CARDIOVASCULAR SYSTEM: Sections of the aorta show passive congestion (of the vasa vasorum) and mild autolysis. Sections of the right and left ventricular ritter show moderate autolysis (consistent with srbhq-fc-pdwoxzx y interval of 1-2 days). RESPIRATORY SYSTEM: Sections of the larynx and trachea show passive congestion and mild autolysis (consistent with qdxyi-wl-peszjjv y interval of less than 7 days). Sections of the lungs show passive congestion, mild autolysis (consistent with fkdlz-lr-tspvnba y interval of less than 4 days), and canalicular phase of development (appropriate for gestational age). THYMUS: Sections of thymus show mild autolysis, preservation of the corticmedullary junction, and foci of extramedullary hematopoiesis. THYROID: Sections of thyroid show passive congestion and mild autolysis. ALIMENTARY CANAL and MESENTERY: Sections of the alimentary canal show varying degrees (mild to moderate) of mucosal autolysis (consistent with ffyoh-hx-rmhvipl y interval of less than 1 week); ganglia are present in submucosal and myenteric plexuses throughout the gut. Sections of mesentery show passive congestion and mild autolysis. HEPATOBILIARY SYSTEM: A section of liver shows mild autolysis (consistent with zgrwn-hu-oobclkb y interval of more than 1 day and less than 4 days) and widespread extramedullary hematopoiesis. PANCREAS: Sections of the pancreas show moderate autolysis. ADRENALS: Sections of the adrenals show mild autolysis (consistent with bvvkk-ao-pzeafeb y interval of less than 7 days), preservation of the cortex (appropriate for gestational age), and foci of extramedullary hematopoiesis. GENITOURINARY SYSTEM: Sections of uterus and ovaries show mild autolysis. Sections of the kidneys show preservation of the nephrogenic zone (appropriate for gestational age) and mild autolysis (consistent with ecujf-am-fslgufw y interval of more than 4 hours [...] architecture. PLACENTA and UMBILICAL CORD (5 H&E, [facility] case [id number]): Sections of the membranes are unremarkable. Sections [...] chorionic villi with intravascular karyorrhexis (consistent with utgep-aw-aczdjec y interval of more than 6 hours), foci of villous stromal-vascular karyorrhexis, and retroplacental hematoma. 0 7:10 PM [facility]3] PATHOLOGY LAB CLINICOPATHOLOGIC CORRELATION Autopsy findings included a macerated female fetus with growth parameters appropriate for gestational age and slightly abnormal facies (slightly upslanting palpebral fissures). Based on criteria developed by Genescruz et al (1), the interval between demise and delivery is estimated as 1-2 days. Examination of the placenta ([facility] case [id number]) showed evidence of vascular malperfusion (chorionic plate thrombosis and villous stromal-vascular karyorrhexis), suggesting the possibility of blood flow obstruction; however, such changes may also be attributable to involutional or degenerative changes following demise (2). Cytogenetic analysis of placental tissue (performed by [employer] ([employer])) showed a normal female karyotype (46,XX) with normal whole genome chromosome SNP microarray analysis (for additional details, see [employer] ([employer] report on specimen [id number]). References 1. Andrews TYLER, Clarence CALLAHAN, Naga LITTLE. Estimating the time of in stillborn fetuses: I. Histologic evaluation of organs; an autopsy study of 129 stillborns. Obstet Gynecol 80(4):575-584, 1991. 2. Alisson TY, Yehuda EE, hZen I, et al. Sampling and definitions of placental lesions: [place] [employer] consensus statement. Arch Pathol Lab Med 140:698-713, 2016. 0 7:10 PM WOOD SETTER [facility] Date of 01/06/19 0 7:10 PM WOOD SETTER [facility] Date of Autopsy 01/10/19 0 7:10 PM WOOD SETTER [facility] Client Frandy 0 7:10 PM WOOD SETTER U PATHOLOGY LAB Embedded Images 0 7:10 PM WOOD SETTER U PATHOLOGY LAB Pathology/Cytolo gy AUTOPSY EXAMINATION / Unknown 01/10/2019 10:42 AM WOOD SETTER 01/10/2019 10:42 AM WOOD SETTER Narrative U PATHOLOGY LAB - 04/07/2019 7:10 PM WOOD SETTER A previously reported component [Component Name] is no longer reported. us Melissa Brown MD LAB - PATHOLOGY/CYTOLOGY HUGO [facility] Final Result [facility] PATHOLOGY LAB [address] [phone] documented in this encounter Visit Diagnoses Diagnosis Illness, unspecified documented in this encounter Care Teams Single Stayer Operator Relationship Specialty Start Date End Date Peyton Vera MD [address] [place] [phone] PCP - General 01/04/19 Peyton Vera MD [address] [facility] [address] [place], [place] [id number] Family Medicine 01/04/19 documented as of this encounter
--- OUTSIDE RECORDS SUMMARY | 2024-08-23 14:04 | XMS_ITS | Clinical Summary ---
Author Organization [facility] Address [address] [place] [address] Care Team Providers Care Cardroom Attendant Name Role Phone Unavailable Primary Care Provider [...]
--- OUTSIDE RECORDS SUMMARY | 2024-08-23 14:04 | XMS_ITS | Clinical Summary ---
Author Organization [email or web address] Address [address] [facility] [place] [address] Care Team Providers Care Package Dyeing Machine Operator Name Role Phone Peyton Vera MD Primary Care Provider [phone] Peyton Vera MD Unavailable [phone] Source Comments [email or web address],non-owned Affiliates and Associated Physician Practices is amultiple site organization consisting of ambulatory clinics and hospital sitesin [place], [place], [place] and [place]. This disclosure is being madepursuant to the Care Everywhere program and may not contain all information available regarding this patient. Last updated 17.[email or web address] Allergies No known active allergies Medications * [...] on file Legal Sex Female 2:41 PM WHIPPED TOPPING SUPERVISOR Gender Identity Not on file Sexual Orientation Not on file Last Filed Vital Signs Vital Sign Reading Time Taken Comments Blood Pressure 108/59 12/28/2018 5:05 PM WHIPPED TOPPING SUPERVISOR Pulse - - Temperature 36.8 C (98.3 F) 12/28/2018 2:44 PM WHIPPED TOPPING SUPERVISOR Respiratory Rate 18 12/28/2018 2:44 PM WHIPPED TOPPING SUPERVISOR Oxygen Saturation 99% 12/28/2018 3:01 PM WHIPPED TOPPING SUPERVISOR Inhaled Oxygen Concentration - - Weight 54.9 kg (121 lb) 12/28/2018 2:50 PM WHIPPED TOPPING SUPERVISOR Height 165.1 cm (5' 5) 12/28/2018 2:50 PM WHIPPED TOPPING SUPERVISOR Body Mass Index 20.14 12/28/2018 2:50 PM WHIPPED TOPPING SUPERVISOR Plan of Treatment Health Maintenance Due Date [...] patient's age to complete this topic [place] [address] [place] [address] [facility] Advance Directives * Full Code (Latest Code Status on File) Date Activated Date Inactivated Comments 12/28/2018 4:13 PM 12/28/2018 6:25 PM Care Teams Package Dyeing Machine Operator Relationship Specialty Start Date End Date Peyton Vera MD [address] [facility] [address] [place] [address] PCP - General 01/04/19 Peyton Vera MD [address] [facility] [address] [place], [place] [id number] Family Medicine 01/04/19
--- OUTSIDE RECORDS SUMMARY | 2024-08-23 14:04 | XMS_ITS | Clinical Summary ---
Author Organization [facility] Address [address] [place] [address] Phone Care Team Providers Care Container Maker Name Role Phone Unavailable Primary Care Provider Unavailabl e Encounters Date Type Department Care Team Description 05/24/2024 External Device Data ST[facility] ABSTRACTION Provider, Abstract 05/24/2024 External Device Data [facility] ABSTRACTION Provider, Abstract from Last 3 Months Social History Tobacco [...] 19+ 3-dose series) 2012 HPV/Cotest (21-29) 2014 CERVICAL CANCER SCREENING 10/05/2023 HPV/Cotest (30-65) 10/05/2023 PAP SMEAR 10/05/2023 12/08/2016 INFLUENZA VACCINE (#1) 2024 HPV VACCINES Aged Out No longer eligi ble based on patient's age to complete this topic Insurance [employer] [employer] [place]
--- OUTSIDE RECORDS SUMMARY | 2024-08-23 14:04 | XMS_ITS | Clinical Summary ---
Author Organization [facility] Address [address] [place] [address] Care Team Providers Care Natural Gas Engineer Name Role Phone Daya Hoskins NP Primary Care Provider Allergies No known active allergies Social History Tobacco Use Types Packs/Day Years Used Date Smoking Tobacco: Never Assessed Personal Safety Answer Date Recorded Getting School Help Needed Denies 02/14 Comments Unknown Sex and Gender Information Value Date Recorded Sex Assigned at Not on file Legal Sex Female 7:27 PM REFRACTORY WORKER Gender Identity Not on file Sexual Orientation Not on file Obstetrics History Para Term AB IAB SAB Ectopic Multiple Livin g Live Births 1 Date Outcome GA Total Labor Labor/2nd/3rd Weight Sex Type Anes PTL Shalini A1 A5 Name Clin Last Filed Vital Signs Vital Sign Reading Time Taken Comments Blood Pressure 116/84 04/23/2022 4:44 PM REFRACTORY WORKER Pulse 64 04/23/2022 4:44 PM REFRACTORY WORKER Temperature 36.6 C (97.8 F) 04/23/2022 12:59 PM REFRACTORY WORKER Respiratory Rate 18 04/23/2022 4:44 PM REFRACTORY WORKER Oxygen Saturation 99% 04/23/2022 4:44 PM REFRACTORY WORKER Inhaled Oxygen Concentration - - Weight 57 kg (125 lb 10.6 oz) 04/23/2022 12:59 P M REFRACTORY WORKER Height 165.1 cm (5' 5) 04/23/2022 12:59 PM REFRACTORY WORKER Body Mass Index 20.91 04/23/2022 12:59 PM REFRACTORY WORKER Plan of Treatment Health Maintenance Due Date Last Done Comments Cervical Cancer Screening 1993 Depression Screening 1993 Hepatitis C Screening 1993 Regular Well Visit/Exam 18-64 10/05/2011 DTaP/Tdap/Td Vaccine (8 - Td or Tdap) 12/21/2022 12/21/2012, 10/20/2005, 01/04/1998, Additional history exists Influenza Vaccine (Season Ended) 2024 12/14/2013, 03/28/2013, 11/16/2009, Additional history exists Hepatitis B Screening Completed 11/14/2003 , 05/10/1998, 01/24/1998 Varicella Vaccines Completed 09/28/2007, 12/31/1999 HPV Vaccines Aged Out No longer eligi ble based on patient's age to complete this topic Pneumococcal vaccine <65 Aged Out No longer eligible based on patient's age to complete this topic Insurance [facility] Care Teams Natural Gas Engineer Relationship Specialty Start Date End Date Daya Hoskins CHICKEN AND FISH CLEANER [address] [address] PCP - General 12/27/18
--- OUTSIDE RECORDS SUMMARY | 2024-08-23 14:04 | XMS_ITS | Referral Summary ---
Author Organization [facility] Address [address] [place] [address] Care Team Providers Care Social Media Project Manager Name Role Phone Daya Hoskins NP Primary Care Provider Allergies No known active allergies Social History Tobacco Use Types Packs/Day Years Used Date Smoking Tobacco: Never Assessed Personal Safety Answer Date Recorded Getting School Help Needed Denies 02/14 Comments Unknown Sex and Gender Information Value Date Recorded Sex Assigned at Not on file Legal Sex Female 7:27 PM FOREST MANAGEMENT PROFESSOR Gender Identity Not on file Sexual Orientation Not on file Last Filed Vital Signs Vital Sign Reading Time Taken Comments Blood Pressure 116/84 04/23/2022 4:44 PM FOREST MANAGEMENT PROFESSOR Pulse 64 04/23/2022 4:44 PM FOREST MANAGEMENT PROFESSOR Temperature 36.6 C (97.8 F) 04/23/2022 12:59 PM FOREST MANAGEMENT PROFESSOR Respiratory Rate 18 04/23/2022 4:44 PM FOREST MANAGEMENT PROFESSOR Oxygen Saturation 99% 04/23/2022 4:44 PM FOREST MANAGEMENT PROFESSOR Inhaled Oxygen Concentration - - Weight 57 kg (125 lb 10.6 oz) 04/23/2022 12:59 P M FOREST MANAGEMENT PROFESSOR Height 165.1 cm (5' 5) 04/23/2022 12:59 PM FOREST MANAGEMENT PROFESSOR Body Mass Index 20.91 04/23/2022 12:59 PM FOREST MANAGEMENT PROFESSOR Plan of Treatment Not on file Insurance [facility] Care Teams Social Media Project Manager Relationship Specialty Start Date End Date Daya Hoskins, GEOPHYSICAL DATA TECHNICIAN [address] [address] PCP - General 12/27/18
== END 2024-08-23 14:01 | disposition home or self-care (01) ==
PROVIDERS: Visit Provider Obstetrics & Gynecology Gynecology
DX: O26.20 Pregnancy care for patient with recurrent pregnancy loss, unspecified trimester (principal); Z3A.00 Weeks of gestation of pregnancy not specified
CPT/HCPCS: 76816

== ENCOUNTER 2024-10-06 06:21 | Inpatient (IN) | payer OTHER, SELFPAY ==
[2024-10-06] VITALS (174 sets, daily range): BP systolic 82–115; BP diastolic 31–74; PULSE 31–138; RESP 18; TEMP 36.4–36.7; O2SAT 81–100; BMI 25.1
--- OUTSIDE RECORDS SUMMARY | 2024-10-06 06:27 | XMS_ITS | Encounter Summary ---
Author Organization [facility] Address [address] [place] [address] Care Team Prov[address] Care Court Deputy Name Role Phone Peyton Vera MD Primary Care Provider [phone] Peyton Vera MD Unavailable Encounter Details Date Type Department Care Team (Late st Contact Info) Description 01/10/2019 Lab Requisition [facility] Care Pathology Lab [address] [place] [address] Melissa Brown MD [address] [place] [address] Illness, unspecified Social History Tobacco Use Types [...] on file Legal Sex Female 2:41 PM DATA MANAGEMENT MANAGER Gender Identity Not on file Sexual Orientation Not on file documented as of this encounter Functional Status * Is person deaf or have serious hearing difficulty? Answer Date of Assessment Author No 12/28/2018 5:06 PM Terese Fernandez, RN * Is person blind or have serious difficulty seeing? Answer Date of Assessment Author No 12/28/2018 5:06 PM Teerse Fernandez, RN * Does person have serious [...] Comments AUTOPSY ([facility]) Routine 01/10/2019 10:42 AM DATA MANAGEMENT MANAGER Illness, unspecified documented in this encounter Results * AUTOPSY ([facility]) (01/10/2019 10:42 AM DATA MANAGEMENT MANAGER) Case Report Autopsy Report Case: [id number] Authorizing Provider: Melissa Brown MD Ordering Provider: Melissa Brown MD Ordering Location: [facility] Care Pathology Lab Pathologist: Pritesh Benjamin MD Specimen: Autopsy 0 7:10 PM DATA MANAGEMENT MANAGER [facility] PATHOLOGY LAB FINAL ANATOMIC DIAGNOSES [...] (two-vessel cord) II. 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 Normal whole genome chromosome SNP microarray analysis The [facility], [address] [place] [id number]. 0 7:10 PM DATA MANAGEMENT MANAGER [facility] PATHOLOGY LAB at [address] DATA MANAGEMENT MANAGER Clinical History Barry Page, also known as Clement Wheeler, was stillborn to Bri Plymouth on 01/06/19 at 20 weeks' gestation. Delivery occurred at [facility] ([address] [place] [address]). Ms. Page, a 23-year-old woman who had [...] mother, and the body was transported to [facility] Department of Pathology. An autopsy was begun on 01/10/19. Cytogenetic analysis of placental tissue was performed by [facility] ([address] [place] [address], ) and showed a normal female karyotype (46,XX); additionally, whole genome chromosome SNP microarray (Reveal) analysis was normal. For additional details, see [facility] report on specimen [id number] ([facility] Specimen Number [id number]). 0 7:10 PM DATA MANAGEMENT MANAGER [facility] PATHOLOGY LAB EXTERNAL EXAMINATION Normal expected (NE) values represent means or means +/- one standard deviation for stillborn at 20 weeks' gestation. Development: Extreme prematurity Nourishment: Thin Weight: 186 g NE: 313 g +/- 139 g [place]-Heel Length: 25 cm NE: 24.9 +/- 2.3 g [place]-Rump Length: 17 cm NE: 18 cm +/- [...] Needle Puncture Castaneda: None 0 7:10 PM DATA MANAGEMENT MANAGER [facility] PATHOLOGY LAB INTERNAL EXAMINATION Normal [...] and glistening withno focal lesions MEDIASTINUM: Thymus: [place]-multani Weight: 0.27 g NE: 0.4 g +/- [...] and glistening with no focal lesions Color: [place] Consistency: Rubbery Crepitus: Absent Bronchi: Patent Vessels: [...] NE: 1.3 g +/- 0.6 g Color: [place]-orange Shape: Pyramidal Consistency: Soft Cut Surfaces: Unremarkable [...] Bones: Unremarkable Sternum: Unremarkable SKULL: Primary Incision: Bkvpcbp-gq-dtedad d Symmetry: Symmetrical Sutures: Overlapping Fontanelles: Anterior [...] EXAMINATION [based on gross examination performed at [facility] as case [id number]] Received fresh is a fragmented ovoid placenta [...] placental disc is collected for cytogenetic analysis. Paper Maker sections are submitted as B1 through B5. 0 7:10 PM [facility] PATHOLOGY LAB Microscopic Description 13 H&E. CARDIOVASCULAR SYSTEM: Sections of the aorta show passive congestion (of the vasa vasorum) and mild autolysis. Sections of the right and left ventricular ritter show moderate autolysis (consistent with utjik-al-bhtinis y interval of 1-2 days). RESPIRATORY SYSTEM: Sections of the larynx and trachea show passive congestion and mild autolysis (consistent with zowqz-mx-afzaoxu y interval of less than 7 days). Sections of the lungs show passive congestion, mild autolysis (consistent with drfsz-ug-umkjhja y interval of less than 4 days), and canalicular phase of development (appropriate for gestational age). THYMUS: Sections of thymus show mild autolysis, preservation of the corticmedullary junction, and foci of extramedullary hematopoiesis. THYROID: Sections of thyroid show passive congestion and mild autolysis. ALIMENTARY CANAL and MESENTERY: Sections of the alimentary canal show varying degrees (mild to moderate) of mucosal autolysis (consistent with kvrke-xa-rjrwkhc y interval of less than 1 week); ganglia are present in submucosal and myenteric plexuses throughout the gut. Sections of mesentery show passive congestion and mild autolysis. HEPATOBILIARY SYSTEM: A section of liver shows mild autolysis (consistent with cstma-yt-rjhpgop y interval of more than 1 day and less than 4 days) and widespread extramedullary hematopoiesis. PANCREAS: Sections of the pancreas show moderate autolysis. ADRENALS: Sections of the adrenals show mild autolysis (consistent with phohn-jv-xxcctgz y interval of less than 7 days), preservation of the cortex (appropriate for gestational age), and foci of extramedullary hematopoiesis. GENITOURINARY SYSTEM: Sections of uterus and ovaries show mild autolysis. Sections of the kidneys show preservation of the nephrogenic zone (appropriate for gestational age) and mild autolysis (consistent with ulgpw-cs-bmomsai y interval of more than 4 hours [...] architecture. PLACENTA and UMBILICAL CORD (5 H&E, [facility] case [id number]): Sections of the membranes are unremarkable. Sections [...] chorionic villi with intravascular karyorrhexis (consistent with eiojm-db-guuhoio y interval of more than 6 hours), foci of villous stromal-vascular karyorrhexis, and retroplacental hematoma. 0 7:10 PM [facility] PATHOLOGY LAB CLINICOPATHOLOGIC CORRELATION Autopsy findings included a macerated female fetus with growth parameters appropriate for gestational age and slightly abnormal facies (slightly upslanting palpebral fissures). Based on criteria developed by Genescruz et al (1), the interval between demise and delivery is estimated as 1-2 days. Examination of the placenta ([facility] case [id number]) showed evidence of vascular malperfusion (chorionic plate thrombosis and villous stromal-vascular karyorrhexis), suggesting the possibility of blood flow obstruction; however, such changes may also be attributable to involutional or degenerative changes following demise (2). Cytogenetic analysis of placental tissue (performed by [facility]) showed a normal female karyotype (46,XX) with normal whole genome chromosome SNP microarray analysis (for additional details, see [facility] report on specimen [id number]). References 1. Andrews TYLER, Clarence CALLAHAN, Naga LITTLE. Estimating the time of in stillborn fetuses: I. Histologic evaluation of organs; an autopsy study of 129 stillborns. Obstet Gynecol 80(4):575-584, 1991. 2. Alisson TY, Yehuda EE, Zhen I, et al. Sampling and definitions of placental lesions: [place] [employer] consensus statement. Arch Pathol Lab Med 140:698-713, 2016. 0 7:10 PM DATA MANAGEMENT MANAGER [facility] PATH[facility] LAB Date of 01/06/19 0 7:10 PM DATA MANAGEMENT MANAGER [facility] Date of Autopsy 01/10/19 0 7:10 PM DATA MANAGEMENT MANAGER [facility] Client Frandy 0 7:10 PM DATA MANAGEMENT MANAGER U PATHOLOGY LAB Embedded Images 0 7:10 PM DATA MANAGEMENT MANAGER [facility] PATHOLOGY LAB Pathology/Cytolo gy AUTOPSY EXAMINATION / Unknown 01/10/2019 10:42 AM DATA MANAGEMENT MANAGER 01/10/2019 10:42 AM DATA MANAGEMENT MANAGER Narrative [facility] PATHOLOGY LAB - 04/07/2019 7:10 PM DATA MANAGEMENT MANAGER A previously reported component [Component Name] is no longer reported. us Melissa Brown MD LAB - PATHOLOGY/CYTOLOGY [facility] [place] Final Result [facility] PATHOLOG[facility] LAB [address] [phone] documented in this encounter Visit Diagnoses Diagnosis Illness, unspecified documented in this encounter Care Teams Court Deputy Relationship Specialty Start Date End Date Peyton Vera MD [address] [place] [phone] PCP - General 01/04/19 Peyton Vera MD [address] [facility] [address] [place], [place] [id number] Family Medicine 01/04/19 documented as of this encounter
--- OUTSIDE RECORDS SUMMARY | 2024-10-06 06:27 | XMS_ITS | Clinical Summary ---
Author Organization [facility] Address [address] [facility] [place] [address] Care Team Providers Care Secretary Board Of Commissioners Name Role Phone Peyton Vera MD Primary Care Provider [phone] Peyton Vera MD Unavailable [phone] Source Comments [facility],non-owned Affiliates and Associated Physician Practices is amultiple site organization consisting of ambulatory clinics and hospital sitesin [place], [place], [place] and [place]. This disclosure is being madepursuant to the Care Everywhere program and may not contain all information available regarding this patient. Last updated 17.[facility] Allergies No known active allergies Medications * [...] file Legal Sex Female 2:41 PM SENIOR UNIX ADMINISTRATOR Gender Identity Not on file Sexual Orientation Not on file Last Filed Vital Signs Vital Sign Reading Time Taken Comments Blood Pressure 108/59 12/28/2018 5:05 PM SENIOR UNIX ADMINISTRATOR Pulse - - Temperature 36.8 C (98.3 F) 12/28/2018 2:44 PM SENIOR UNIX ADMINISTRATOR Respiratory Rate 18 12/28/2018 2:44 PM SENIOR UNIX ADMINISTRATOR Oxygen Saturation 99% 12/28/2018 3:01 PM SENIOR UNIX ADMINISTRATOR Inhaled Oxygen Concentration - - Weight 54.9 kg (121 lb) 12/28/2018 2:50 PM SENIOR UNIX ADMINISTRATOR Height 165.1 cm (5' 5) 12/28/2018 2:50 PM SENIOR UNIX ADMINISTRATOR Body Mass Index 20.14 12/28/2018 2:50 PM SENIOR UNIX ADMINISTRATOR Plan of Treatment Health Maintenance Due Date Last Done Comments HIV SCREENING 2008 HEPATITIS C SCREENING 09/30/2011 DTAP/TDAP/TD VACCINES (1 - Tdap) 2012 HEPATITIS B VACCINE (1 of 3 - 19+ 3-dose series) 2012 HPV VACCINE (1 - 3-dose SCDM series) 2020 COVID-19 VACCINE (1 - 2023-2 5 season) 2023 DEPRESSION SCREENING 02/24/2024 INFLUENZA VACCINE (#1) 2024 ZOSTER VACCINE (1 of 2) 10/05/2043 [...] patient's age to complete this topic Insurance [place] [address] [facility] Advance Directives * Full Code (Latest Code Status on File) Date Activated Date Inactivated Comments 12/28/2018 4:13 PM 12/28/2018 6:25 PM Care Teams Secretary Board Of Commissioners Relationship Specialty Start Date End Date Peyton Vera MD [address] [place] [address] PCP - General 01/04/19 Peyton Vera MD [address] [place], [place] [id number] Family Medicine 01/04/19
--- OUTSIDE RECORDS SUMMARY | 2024-10-06 06:27 | XMS_ITS | Clinical Summary ---
Author Organization [facility] Address [address] [place] [address] Care Team Providers Care Recovery Advocate Name Role Phone Daya Hoskins NP Primary Care Provider Allergies No known active allergies Social History Tobacco Use Types Packs/Day Years Used Date Smoking Tobacco: Never Assessed Personal Safety Answer Date Recorded Getting School Help Needed Denies 02/14 Comments Unknown Sex and Gender Information Value Date Recorded Sex Assigned at Not on file Legal Sex Female 7:27 PM TRUCK HEADLIGHT ASSEMBLER Gender Identity Not on file Sexual Orientation Not on file Obstetrics History Para Term AB IAB SAB Ectopic Multiple Livin g Live Births 1 Date Outcome GA Total Labor Labor/2nd/3rd Weight Sex Type Anes PTL Shalini A1 A5 Name Clin Last Filed Vital Signs Vital Sign Reading Time Taken Comments Blood Pressure 116/84 04/23/2022 4:44 PM TRUCK HEADLIGHT ASSEMBLER Pulse 64 04/23/2022 4:44 PM TRUCK HEADLIGHT ASSEMBLER Temperature 36.6 C (97.8 F) 04/23/2022 12:59 PM TRUCK HEADLIGHT ASSEMBLER Respiratory Rate 18 04/23/2022 4:44 PM TRUCK HEADLIGHT ASSEMBLER Oxygen Saturation 99% 04/23/2022 4:44 PM TRUCK HEADLIGHT ASSEMBLER Inhaled Oxygen Concentration - - Weight 57 kg (125 lb 10.6 oz) 04/23/2022 12:59 P M TRUCK HEADLIGHT ASSEMBLER Height 165.1 cm (5' 5) 04/23/2022 12:59 PM TRUCK HEADLIGHT ASSEMBLER Body Mass Index 20.91 04/23/2022 12:59 PM TRUCK HEADLIGHT ASSEMBLER Plan of Treatment Health Maintenance Due Date Last Done Comments Cervical Cancer Screening 1993 Depression Screening 1993 Hepatitis C Screening 1993 Regular Well Visit/Exam 18-64 10/05/2011 HPV Vaccines (1 - 3-dose SCDM series) 2020 DTaP/Tdap/Td Vaccine (8 - Td or Tdap) 12/21/2022 12/21/2012, 10/20/2005, 01/04/1998, Additional history exists Influenza Vaccine (#1) 2024 4, 03/28/2013, 11/16/2009, Additional history exists Hepatitis B Screening Completed 11/14/2003 , 05/10/1998, 01/24/1998 Varicella Vaccines Completed 09/28/2007, 12/31/1999 Pneumococcal vaccine <65 Aged Out No longer eligible based on patient's age to complete this topic Insurance [facility] Care Teams Recovery Advocate Relationship Specialty Start Date End Date Daya Hoskins PARTNERSHIP MARKETING MANAGER [address] [address] PCP - General 12/27/18
--- OUTSIDE RECORDS SUMMARY | 2024-10-06 06:27 | XMS_ITS | Clinical Summary ---
Author Organization [facility] Address [address] [place] [address] Care Team Providers Care Electrical Systems Designer Name Role Phone Unavailable Primary Care Provider [...] 3 - 19+ 3-dose series) 2012 HPV Vaccines (1 - 3-dose SCD M series) 2020 Cervical Cancer Screening Pa p with HPV Testing (Age 30 to 64) Every 5 Years 10/05/2023 Cervical Cancer Screening with HPV 10/05/2023 COVID-19 Vaccine ( - 2023-2 5 season) 2023 Meningococcal B Vaccine Aged Out No l [...]
--- OUTSIDE RECORDS SUMMARY | 2024-10-06 06:27 | XMS_ITS | Clinical Summary ---
Author Organization [facility] Address [address] [place] [address] Phone Care Team Providers Care Toaster Operator Name Role Phone Unavailable Primary Care Provider Unavailabl e Encounters Date Type Department Care Team Description 09/28/2024 External Device Data ST[facility] ABSTRACTION Provider, Abstract 09/27/2024 External Device Data ST[facility] ABSTRACTION Provider, Abstract 09/07/2024 External Device Data [facility] ABSTRACTION Provider, Abstract 09/06/2024 External Device Data [facility] ABSTRACTION Provider, Abstract 08/23/2024 External Device Data [facility] ABSTRACTION Provider, Abstract [...] Health Maintenance Due Date Last Done Comments HPV VACCINES (1 - 3-dose series) 2008 DTAP/TDAP/TD VACCINES (1 - Tdap) 2012 HEPATITIS B VACCINES (1 of 3 - 19+ 3-dose series) 09/23 HPV/Cotest (21-29) 2014 CERVICAL CANCER SCREENING 10/05/2023 HPV/Cotest (30-65) 10/05/2023 PAP SMEAR 10/05/2023 12/08/2016 INFLUENZA VACCINE (#1) 2024 Insurance [employer] [place]
[2024-10-06 06:59] LABS: Hematocrit 30.8 % (37.0-47.0); Hemoglobin 10.1 g/dL (12.0-15.0); Immature Granulocyte Percent A 0.4 % (0-0.5); Lymphocytes Absolute Auto 2.07 K/mm3 (0.9-3.2); Mean Corpuscular HGB Conc 32.8 g/dl (32-36); Mean Corpuscular Hemoglobin 28.5 pg (26-34); Mean Corpuscular Volume 87.0 fl (80-100); Nucleated Red Blood Cells Absolute Auto 0.000 K/mm3 (0.0-0.012); Nucleated Red Blood Cells Perc 0.0 % (0.0-0.2); Platelet Count Result 171 k/mm3 (150-375); Red Blood Count 3.54 M/mm3 (4.2-5.4); White Blood Count 7.2 K/mm3 (4.5-10.0)
--- NOTE | 2024-10-06 07:01 | LDADM ---
This patient, Danita Page, was admitted to Labor/Delivery/Recovery 103 on 10/06/24 at 06:21. Plans for labor, pain management and were discussed with patient. Patient/family oriented to hospital policies and general routines including ID bracelet, bed and alarms, visiting hours, pain management, procedures, bathroom and other care routines, personal items, smoking policy, room service/diet and guest tray routines, security routines, and visiting hours. Patient/Family are encouraged to report perceived risks to care and to ask questions if they do not understand what they are told or what they should do. See OBIX for further documentation.
[2024-10-06] MEDS: OXYTOCIN 30 UNITS/NS 500 ML 30 UNITS/500 ML BAG IV CONT (07:14)
[2024-10-06] MEDS: AMPICILLIN SODIUM 2 GM in SODIUM CHLORIDE 0.9% IV 100 ML 200 ML IVPB (07:14)
[2024-10-06] MEDS: LACTATED RINGERS 1,000 ML 125 ML IV CONT ×3 (07:15→12:58)
[2024-10-06] MEDS: ONDANSETRON INJ 4 MG/2 ML VIAL IV PUSH ×2 (07:42→19:56)
--- NOTE | 2024-10-06 07:54 | WPDOBADMIT ---
Obstetrics - Admit Note Admission Note: record reviewed. No pertinent additions to the history and/or any subsequent changes in the physical findings that are not consistent with the expected course of the were found. Additions to the history and/or subsequent changes in the physical findings follow. None.Here for MIL. cervix 1/th/-2 AROM with clear fluid. FHTs reactive
[2024-10-06 09:09] LABS: Syphilis IgG/IgM Antibody Non-Reactive (Nonreactive)
--- NOTE | 2024-10-06 09:45 | WPDANESEPPF ---
Anes - Initial Pre Proc Eval Procedure: labor epidural Date/Time: 10/06/24 09:45 Surgeon: Perri Cheng MD Pre Op Diagnosis: labor pain Pre Op Diagnosis: IOL Patient Data Age: 29 Gender: F Height: 1.65 m Weight: 68.5 kg Last Vital Signs Temp 36.6 C 10/06/24 08:00 Pulse 69 10/06/24 09:40 BP 105/47 L 10/06/24 09:40 O2 Del Method Room Air 10/06/24 07:48 Allergies Allergy/AdvReac Type Severity Reaction Status Date / Time No Known Allergies Allergy Verified 06/29/24 16:24 Home Medications ?Medication ?Instructions ?Recorded ?Confirmed ?Type ergocalciferol (vitamin D2) 1,250 1,250 mcg PO WEEKLY 09/14/22 10/06/24 History mcg (50,000 unit) capsule ferrous sulfate 325 mg (65 mg 325 mg PO DAILY 12/15/22 10/06/24 History iron) tablet (FeroSul) escitalopram oxalate 10 mg tablet 10 mg PO DAILY 10/06/24 10/06/24 History valacyclovir 500 mg tablet 500 mg PO DAILY 10/06/24 10/06/24 History Laboratory Tests 10/06/24 06:38 WBC 7.2 K/mm3 (4.5-10.0) RBC 3.54 L M/mm3 (4.2-5.4) Hgb 10.1 L g/dL (12.0-15.0) Hct 30.8 L % (37.0-47.0) MCV 87.0 fl (80-100) MCH 28.5 pg (26-34) MCHC 32.8 g/dl (32-36) RDW 12.8 % (11.5-14.5) Plt Count 171 k/mm3 (150-375) MPV 10.4 fl (7.4-10.4) Immature Gran % (Auto) 0.4 % (0-0.5) Neut % (Auto) 63.4 % (45.5-73.1) Lymph % (Auto) 28.8 % (18.3-44.2) Humphreys % (Auto) 6.4 % (2.6-8.5) Eos % (Auto) 0.7 % (0-4.4) Baso % (Auto) 0.3 % (0.2-1.2) Lymph # (Auto) 2.07 K/mm3 (0.9-3.2) Humphreys # (Auto) 0.5 K/mm3 (0.1-0.6) Eos # (Auto) 0.1 K/mm3 (0-0.3) Baso # (Auto) 0.0 K/mm3 (0.0-0.1) Abs Immat Gran (auto) 0.03 K/mm3 (0.00-0.031) Absolute Neuts (auto) 4.6 K/mm3 (1.3-6.7) Absolute Nucleated RBC 0.000 K/mm3 (0.0-0.012) Nucleated RBC % 0.0 % (0.0-0.2) Syphilis IgG/IgM Ab Non-reactive (Nonreactive) Blood Type B Positive Antibody Screen Negative Patient hx anesthesia problems: none Family hx anesthesia problems: none Results Review: All pre-operative results and documents have been reviewed as part of the pre-operative evaluation. [facility] Past Medical History Medical History IUFD at 20 weeks or more of gestation Family History Family History Other No pertinent family history Social History Social History Smoking status: Never smoker Tobacco type: e-cigarettes/vaping Second hand tobacco smoke exposure: Yes Substance use: current Last use: Prior to knowledge of Do You Feel Safe in your Home?: Yes Lack of Transportation: No Lack of Food: Never True Current Housing: I Have Housing Concerned About Future Housing: No Difficulty Paying Gas/Electric Bills: No Difficulty Paying for Meds: No Currently Unemployed: No Education: Associate Degree Difficulty w/ Childcare or Family Care: No Gender identity (if verbalized by the patient): Female Spiritual care concerns: No Anes - Eval Final PreProcedure Day of Procedure 10/06/24 09:45 Patient weight: overweight ASA classification: II Anesthetic plan: proceed Anesthesia type and monitoring: regional epidural and standard monitoring Results Review: All pre-operative results and documents have been reviewed as part of the pre-operative evaluation. Informed Consent: The patient's anesthetic plan and its attendant risks and benefits were discussed with the patient/family/POA. Questions were solicited and answers provided to the satisfaction of the patient/family/POA.
[2024-10-06] MEDS: AMPICILLIN SODIUM 1 GM in SODIUM CHLORIDE 0.9% IV 50 ML 100 ML IVPB (12:17)
[2024-10-06] MEDS: SODIUM CHLORIDE 0.9% IV 300 ML 600 ML I-UTERINE (13:00)
--- NOTE | 2024-10-06 15:55 | PM.OBPRVD ---
OB - Vaginal Delivery Note Procedure Delivery date: 10/06/24 Events: Other (Hx IUFD) Induction method: AROM and Per Pitocin Protocol Delivery monitor: External FHT and Internal Uterine Route of delivery: Episiotomy description: None Laceration Description: None Specimen: No Quantitative Blood Loss (ml): 25 Anesthesia type: Epidural Disposition: Floor Complications: No immediate complications Baby Date of : 10/06/24 Gestational Age by Date: 39 Infant gender: Female presentation: vertex position: Right Occiput Anterior Placenta delivery description: Spontaneous Cord Vessel Description: 3 Vessels and Delayed Cord Clamping score one minute: 9 score five minutes: 9
--- NOTE | 2024-10-06 15:56 | PM.OBDSVD ---
DS: Admitting Diagnosis Discharge Date 10/08/24 Admitting Diagnosis IUP 39 wks MIL for hx IUFD DS: Discharge Diagnosis Discharge Diagnosis (1) (normal spontaneous vaginal delivery): Code(s): O80 - Encounter for full-term uncomplicated delivery Status: Acute OB - DS: Summary OB Procedures : Ultrasound OB Procedures Intrapartum: Spontaneous Vag Delivery OB Procedures: : None Peripartum Data Infant Delivery Method: Natural Vaginal Laceration Description: None Episiotomy description: None complications: none Status at Discharge Functional status at discharge: independent ambulation Overall status at discharge: patient is progressing back to baseline Time Spent with Patient Time attestation: Total time spent providing and/or coordinating discharge services: DS: Data Data Completed and Pending Labs on day of discharge: Labs from last 24 hours 10/06/24 06:38 WBC 7.2 RBC 3.54 L Hgb 10.1 L Hct 30.8 L MCV 87.0 MCH 28.5 MCHC 32.8 RDW 12.8 Plt Count 171 MPV 10.4 Immature Gran % (Auto) 0.4 Neut % (Auto) 63.4 Lymph % (Auto) 28.8 Cochran % (Auto) 6.4 Eos % (Auto) 0.7 Baso % (Auto) 0.3 Lymph # (Auto) 2.07 Cochran # (Auto) 0.5 Eos # (Auto) 0.1 Baso # (Auto) 0.0 Abs Immat Gran (auto) 0.03 Absolute Neuts (auto) 4.6 Absolute Nucleated RBC 0.000 Nucleated RBC % 0.0 Syphilis IgG/IgM Ab Non-reactive Blood Type B Positive Antibody Screen Negative Discharge Plan Discharge Attending physician on discharge: Perri Cheng Discharging Clinician: Rishi Parks Anticipated Discharge Date/Time: 10/08/24 15:57 Patient Disposition: Home Activity: may shower and pelvic rest Diet: as tolerated Patient Instructions: Antibiotic Form Patient Language: Frisian Stand Alone Forms: General Discharge Information Follow-up/Referrals: Perri Cheng MD [Physician] - 6 Weeks Discharge Medications: Continued ergocalciferol (vitamin D2) 1,250 mcg (50,000 unit) capsule 1,250 mcg PO WEEKLY ferrous sulfate [FeroSul] 325 mg (65 mg iron) tablet 325 mg PO DAILY escitalopram oxalate 10 mg tablet 10 mg PO DAILY Discontinued valacyclovir 500 mg tablet 500 mg PO DAILY Date of admission: 10/06/24 06:21 Primary Care Provider: UNKNOWN,DOCTOR Admitting Provider: Perri Cheng Attending physician on admission: Perri Cheng Condition: Stable Care Plan Goals: Plans Neginetta for control
[2024-10-06] MEDS: OXYTOCIN 30 UNITS/NS 500 ML 30 UNITS/500 ML BAG 125 UNITS IV CONT (16:33)
[2024-10-06] MEDS: diphenhydrAMINE HCl CAP 25 MG CAPSULE PO (17:16)
[2024-10-06] MEDS: BENZOCAINE 20% AER SPR (*SP) 56 GM CAN 1 SPRAY TOPICAL (18:45)
[2024-10-06] MEDS: WITCH HAZEL 40 PADS 1 PAD TOPICAL (18:45)
--- NOTE | 2024-10-06 19:05 | OBPPTRN ---
Patient transferred to post room #283 via wheelchair. Support person present. Oriented to unit, room, information board, rooming in, admission packet and security measures. Patient verbalizes understanding.
[2024-10-06] MEDS: IBUPROFEN 600 MG TABLET PO (19:29)
[2024-10-06] MEDS: LORATADINE 5 MG TABLET PO (19:56)
[2024-10-07] MEDS: ACETAMINOPHEN 325 MG TABLET 650 MG PO ×4 (00:24→23:47)
[2024-10-07 00:30] VITALS: BP 109/66; PULSE 67; RESP 18; TEMP 36.5; O2SAT 99
[2024-10-07 05:00] VITALS: BP 96/72; PULSE 66; RESP 16; TEMP 36.4; O2SAT 99
[2024-10-07 05:53] LABS: Hematocrit 31.8 % (37.0-47.0); Hemoglobin 10.5 g/dL (12.0-15.0)
[2024-10-07 07:45] VITALS: BP 106/57; PULSE 63; RESP 16; TEMP 36.6; O2SAT 100
[2024-10-07] MEDS: ESCITALOPRAM OXALATE 10 MG TABLET PO (07:49)
[2024-10-07] MEDS: IBUPROFEN 600 MG TABLET PO ×3 (07:49→23:48)
[2024-10-07] MEDS: DOCUSATE SODIUM 100 MG CAPSULE PO (07:49)
--- NOTE | 2024-10-07 07:49 | P.PNOB_ITS ---
OB - PN: Subj Subjective Date/time seen: 10/07/24 07:49 Patient comments: no complaints and pain well controlled baby status: doing well OB - PN: Obj Data Labs 10/07/24 05:13 Labs: Laboratory Results - last 24 hr 10/06/24 10/07/24 06:38 05:13 Hgb 10.5 L Hct 31.8 L Syphilis IgG/IgM Ab Non-reactive Antibody Screen Negative OB - PN A/P Plan day: 1 Plan: routine care Time Spent With Patient Time: Total time spent is greater than 50% in coordination of care (as documented) at patient's floor/unit and/or counseling patient: Exam 2 : Bimanual exam- vagina & uterus: other (Uterus firm, nt @U)
[2024-10-07] MEDS: LANOLIN (LANSINOH) 7.5 GM CREAM 1 APPLIC TOPICAL (08:50)
[2024-10-07 11:08] VITALS: BP 100/56; PULSE 68; RESP 16; TEMP 36.6; O2SAT 98
--- NOTE | 2024-10-07 12:46 | WPDANLDPN2 ---
Anes-Prog Note L&D Date/Time: 10/07/24 12:46 Comfortable throughout: labor and delivery Neuraxial method: epidural Epidural/Spinal procedure site: clean & non-tender Neuro status: Neuro function grossly intact. Cardiovascular status: normal Respiratory status: normal Airway patency: baseline Mental status: baseline Post-Op hydration status: normal Vital Signs: Last Vital Signs Temp 36.6 C 10/07/24 11:08 Pulse 68 10/07/24 11:08 Resp 16 10/07/24 11:08 BP 100/56 L 10/07/24 11:08 Pulse Ox 98 10/07/24 11:08 O2 Del Method Room Air 10/06/24 07:48 Pain score (VAS): 10 I/O: Intake & Output 10/06/24 10/07/24 10/07/24 23:59 07:59 15:59 Output Total 175 Balance -175 Post-procedural complaints: none Patient feedback: Patient satisfied with anesthetic care.
[2024-10-07] MEDS: HYDROcodone/acetaminophen (*CRX) 5-325 MG TABLET 1 TAB (18:57)
[2024-10-07 21:10] VITALS: BP 116/62; PULSE 74; RESP 14; TEMP 37; O2SAT 100
[2024-10-08] MEDS: IBUPROFEN 600 MG TABLET PO (05:28)
[2024-10-08] MEDS: ACETAMINOPHEN 325 MG TABLET 650 MG PO (05:28)
--- NOTE | 2024-10-08 06:53 | P.PNOB_ITS ---
OB - PN: Subj Subjective Date/time seen: 10/08/24 06:53 Patient comments: no complaints and pain well controlled baby status: doing well OB - PN: Obj Data Labs 10/07/24 05:13 OB - PN A/P Assessment and Plan (1) , delivered: Code(s): O80 - Encounter for full-term uncomplicated delivery Status: Acute Plan home Time Spent With Patient Time: Total time spent is greater than 50% in coordination of care (as documented) at patient's floor/unit and/or counseling patient: Review of Systems 2 Review of Systems: CONSTITUTIONAL: Denies fever, chills, or sweats. Past for body aches. EYES: Denies visual changes, redness, or discharge. ENT: Denies rhinorrhea, or otalgia. Positive for congestion and sore throat. CARDIOVASCULAR: Denies chest pain, palpitations, or edema. RESPIRATORY: Positive for cough. Negative for dyspnea. GASTROINTESTINAL: Denies abdominal pain or diarrhea. Positive for nausea and vomiting. GENITOURINARY: Denies dysuria, vaginal bleeding, vaginal discharge, or hematuria. SKIN: Denies rash or itching. MUSCULOSKELETAL: Denies back pain, joint pain, or myalgia. NEUROLOGIC: Denies headache, numbness, or weakness. PSYCHIATRIC: Denies anxiety or depression. All other systems reviewed are negative, except as documented in HPI. Exam 2 : Bimanual exam- vagina & uterus: other (Uterus firm, nt @U)
[2024-10-08] MEDS: HYDROcodone/acetaminophen (*CRX) 5-325 MG TABLET 1 TAB PO (08:11)
[2024-10-08] MEDS: MULTIVIT/MIN/PREN/FOL AC/IRON TABLET 1 TAB PO (08:11)
[2024-10-08 08:17] VITALS: BP 108/62; PULSE 58; RESP 18; TEMP 36.2; O2SAT 97
[2024-10-08] MEDS: SIMETHICONE 80 MG TAB.CHEW PO (08:18)
--- NOTE | 2024-10-08 12:10 | PC.NURSE ---
Per patient she received her Tdap vaccine at Dr. Cheng's office but is unsure of the date.
--- NOTE | 2024-10-08 12:55 | PC.NURSE ---
Patient viewed the discharge video Mother & Baby Care, The First Two Weeks. Patient was given the opportunity and encouraged to ask questions. Patient verbalized understanding of information shared and has been given the mother/baby guide for home reference.
--- NOTE | 2024-10-08 16:00 | PC.NURSE ---
Mother verbalizes she is able to independently latch with appropriate positioning and alignment. She denies any nipple discomfort and is responsively . Infant is currently meeting outcomes for weight, output, jaundice, blood sugar and feeding frequencies of 8-12 times in 24 hours. Mother declines any additional assistance or education at this time. Mother is encouraged to call for assistance if her infant doesn?t latch, pain with latching, questions or concerns. Mother voiced understanding of information shared along with the mom/baby guide for an additional resource. Reported to the Primary RN.
[2024-10-10 10:45] VITALS: BP 106/70; PULSE 52; RESP 18; TEMP 36.8; O2SAT 100
== END 2024-10-08 18:04 | disposition home or self-care (01) | DRG 560 ==
LOC: ANHLDR 15:57 → ANHOB2 19:07
PROVIDERS: Admitting Provider Obstetrics & Gynecology Gynecology; Visit Provider Obstetrics & Gynecology Gynecology
DX: O99.892 Other specified diseases and conditions complicating childbirth (principal); Z37.0 Single live birth; O99.824 Streptococcus B carrier state complicating childbirth; Z3A.39 39 weeks gestation of pregnancy; Z87.59 Personal history of other complications of pregnancy, childbirth and the puerperium
CPT/HCPCS: 36415; 85014; 85018; 85025; 86593; 86850; 86900; 86901; A9270; J0290; J2405; J2590; J2795; J7030; J7120